=== PATIENT | female | born 1980 | race African-American/Black ===

== ENCOUNTER 2020-07-20 08:20 | Emergency (ER) | payer OTHER, SELFPAY ==
--- NOTE | ~2020-07-20 | US_ITS ---
EXAMINATION: US right upper quadrant DATE: 07/20/2020 09:49 INDICATION: Right-sided abdominal pain, nausea, vomiting and constipation. TECHNIQUE: Multiple grayscale and Doppler ultrasound images of the abdomen were obtained. COMPARISON: None FINDINGS: The pancreatic head and body are normal in appearance. The pancreatic tail is not visualized. Liver has normal contour, with a smooth surface. There is increased parenchymal echogenicity and coarsened echotexture consistent with diffuse hepatic steatosis. No liver lesion identified. No intrahepatic b iliary duct dilation suspected. Portal venous flow was seen in the hepatopetal, normal direction and has normal Doppler waveform. The gallbladder is normal in appearance. 1.5 cm ovoid shadowing gallston e at the fundus of the gallbladder. The common bile duct measures 4 mm, which is normal. Sonographic Mcclain sign was reported as negative by the fire apparatus engineer.Visualized portions of the right kidney demon strates normal contour and echogenicity with no hydronephrosis. Visualized proximal inferior vena cav a is normal. IMPRESSION: 1. Cholelithiasis. 2. Diffuse hepatic steatosis. Reviewed, dictated and finalized at location A. ER ERECTOR
[2020-07-20 08:30] VITALS: BP 143/105; PULSE 121; RESP 14; TEMP 36.8; O2SAT 99
--- NOTE | 2020-07-20 08:49 | ED.ABDPAIN ---
HPI - Abdominal Pain General Chief Complaint: Abdominal Pain Stated Complaint: constipation, vomiting Time Seen by Provider: 07/20/20 08:26 Source: patient Mode of arrival: ambulatory Limitations: no limitations History of Present Illness HPI narrative: 39-year-old female Generally healthy, takes no medications Comes in today for evaluation of an episode of abdominal pain that happened 2 days ago She says that after eating she had pain in her epigastrium and right upper quadrant associated with nausea and vomiting The pain resolved but the nausea has persisted and she has been reluctant to try to eat since then She also notes that she feels like she has become chronically constipated times weeks to months with no bowel movement for the last 2 days, and that the left side of her body feels swollen Her last menstrual period was 8 days ago elicited complaint: abdominal pain Onset (ago): day(s) Pain Consistency: intermittent and now resolved Location: epigastric and RUQ Related Data Home Medications Medication Instructions Recorded Confirmed bupropion HCl mg PO 07/20/20 bupropion HCl mg PO 07/20/20 07/20/20 ergocalciferol (vitamin D2) 07/20/20 levothyroxine 07/20/20 naproxen 07/20/20 phentermine mg 07/20/20 quetiapine 07/20/20 Allergies Allergy/AdvReac Type Severity Reaction Status Date / Time iodine Allergy Unknown Unknown Verified 07/20/20 09:19 1. SHRIMP 2. BANANAS Allergy Unknown Unknown Uncoded 07/20/20 09:19 NKDA Allergy Unknown Unknown Uncoded 07/20/20 09:19 Review of Systems Review of Systems: All systems reviewed & are unremarkable except as noted in HPI and below Constitutional: Constitutional: Denies chills, Reports fatigue, Denies fever(s), Denies headache(s) and Reports weakness Eyes: Eyes: Reports no additional eye complaints and Denies change in vision ENT: Denies headache(s), Denies epistaxis, Denies nasal congestion and Denies sore throat Cardiovascular: Cardiovascular: Denies chest pain, Denies leg edema, Denies palpitations and Denies dyspnea Respiratory: Respiratory: Denies cough, Denies dyspnea and Denies wheezing Gastrointestinal: Gastrointestinal: Reports abdominal pain, Reports bloating, Reports constipation, Denies diarrhea, Reports nausea and Reports vomiting Genitourinary: Genitourinary: Denies hematuria, Denies urinary frequency and Denies dysuria Musculoskeletal: Musculoskeletal: Denies deformity, Denies arthralgias, Denies joint swelling, Denies muscle weakness and Denies numbness Integumentary/Breasts: Skin/Breast: Denies rash and Denies wounds Neurologic: Denies headache(s), Denies focal weakness, Denies numbness and Denies weakness Psychiatric: Psychiatric: Reports no additional psychiatric complaints Endocrine: Endocrine: Denies fatigue and Denies palpitations Hematologic/Lymphatic: Hematologic/Lymphatic: Denies easy bleeding and Denies easy bruising Allergic/Immunologic: Allergic/Immunologic: Denies wheezing Exam Const: General: no acute distress, well developed and awake Nutritional Appearance: obese morbidly obese Orientation/consciousness: patient oriented x3 (alert) HENMT: Head: normocephalic and atraumatic Ears: external ears normal General nose exam: No nasal discharge present and no epistaxis Face and sinus: face symmetric Eyes: Conjunctivae: conjunctivae normal Sclera: sclerae normal EOM: EOMs intact bilaterally Neck: Neck: normal visual inspection, supple and no JVD Chest: Chest palpation & inspection: deferred Resp: Effort & Inspection: normal respiratory effort Auscultation: clear to auscultation bilaterally, no rales, no rhonchi, no wheezes and other (BS =) Cardio: Rate: regular rate Rhythm: regular rhythm Heart sounds: no gallops and no murmurs GI: Inspection: normal to inspection GI Palp: Yes Soft to palpation, No Tenderness to palpation present (GI), No Guarding due to palpation present (GI) and No Rebound tenderness prese
[2020-07-20 09:03] LABS: Basophils Absolute Auto 0.1 K/mm3 (0.0-0.1); Basophils Percent Auto 0.4 % (0.2-1.2); Eosinophils Absolute Auto 0.1 K/mm3 (0-0.3); Eosinophils Percent Auto 0.5 % (0-4.4); Hematocrit 38.5 % (37.0-47.0); Hemoglobin 12.8 g/dL (12.0-15.0); Immature Granulocyte Absolute 0.05 K/mm3 (0.00-0.031); Immature Granulocyte Percent A 0.4 % (0-0.5); Lymphocytes Absolute Auto 4.73 K/mm3 (0.9-3.2); Lymphocytes Percent Auto 33.7 % (18.3-44.2); Mean Corpuscular HGB Conc 33.2 g/dl (32-36); Mean Corpuscular Hemoglobin 28.6 pg (26-34); Mean Corpuscular Volume 85.9 fl (80-100); Mean Platelet Volume 10.1 fl (7.4-10.4); Monocytes Absolute Auto 0.9 K/mm3 (0.1-0.6); Monocytes Percent Auto 6.2 % (2.6-8.5); Neutrophils Absolute Auto 8.3 K/mm3 (1.3-6.7); Neutrophils Percent Auto 58.8 % (45.5-73.1); Platelet Count Result 361 k/mm3 (150-375); Red Blood Count 4.48 M/mm3 (4.2-5.4); Red Cell Distribution Width 14.5 % (11.5-14.5)
[2020-07-20 09:07] LABS: Add Urine Microscopic? YES; Appearance Urine Clear (Clear); Bilirubin Urine 1+ (Negative); Blood Urine 1+ (Negative); Color Urine Amber (Yellow); Glucose Urine UA Negative (Negative); Ketones Urine Trace mg/dL (Negative); Leukocyte Esterase Ur Negative LEU/UL (Negative); Mucus Urine Heavy /lpf; Nitrate Urine Negative (Negative); Protein Urine 3+ mg/dL (Negative); Specific Grav Ur 1.026 (1.001-1.035); Squamous Epithelial Cell Urine Many /hpf (Few); Transitional Epi Cells Urine Rare /hpf (None Seen)
[2020-07-20] MEDS: ONDANSETRON INJ 4 MG/2 ML VIAL IV PUSH (09:09)
[2020-07-20 09:14] LABS: Alanine Aminotransferase 29 U/L (4-35); Albumin Level 4.4 g/dL (3.5-5.1); Alkaline Phosphatase 103 U/L (38-126); Anion Gap 7 mmol/L (8-16); Aspartate Amino Transferase 29 U/L (14-36); Bilirubin,Total 0.6 mg/dL (0.2-1.3); Blood Urea Nitrogen 9 mg/dL (7-17); Calcium 9.6 mg/dL (8.4-10.2); Carbon Dioxide 33 mmol/L (22-30); Chloride 100 mmol/L (98-107); Estimated CRCL calculation 97 ml/min; Estimated Glomerular Filt Rate > 60; Glucose 103 mg/dL (65-105); Lipase 215 U/L (23-300); Potassium 3.1 mmol/L (3.4-5.0); Sodium 140 mmol/L (137-145)
[2020-07-20 11:26] VITALS: BP 103/67; PULSE 91; RESP 14; O2SAT 98
== END 2020-07-20 12:02 | disposition home or self-care (01) ==
PROVIDERS: Emergency Provider Emergency Medicine
DX: K80.50 Calculus of bile duct without cholangitis or cholecystitis without obstruction (principal); K85.10 Biliary acute pancreatitis without necrosis or infection
CPT/HCPCS: 36415; 76705; 80053; 81001; 81025; 83690; 85025; 87086; 87088; 96374; 99284; J2405

== ENCOUNTER 2020-08-05 10:04 | Outpatient (CLI) | payer OTHER, SELFPAY ==
[2020-08-05 10:35] LABS: Amylase 66 U/L (30-110)
== END 2020-08-05 10:05 | disposition home or self-care (01) ==
LOC: ANHSURGERY 10:07
PROVIDERS: Visit Provider Surgery
DX: Z01.812 Encounter for preprocedural laboratory examination (principal); K80.20 Calculus of gallbladder without cholecystitis without obstruction
CPT/HCPCS: 36415; 82150; 86850; 86900; 86901

== ENCOUNTER 2020-08-09 00:50 | Outpatient (CLI) | payer OTHER, SELFPAY ==
[2020-08-09 18:38] LABS: SARS-CoV-2 RNA PCR Negative
== END 2020-08-09 00:51 | disposition home or self-care (01) ==
LOC: ANHCOVIDDT 00:50
PROVIDERS: Visit Provider Surgery
DX: Z01.818 Encounter for other preprocedural examination (principal); Z20.828 Contact with and (suspected) exposure to other viral communicable diseases
CPT/HCPCS: C9803; U0003

== ENCOUNTER 2020-08-12 01:50 | Day surgery (SDC) | payer OTHER, SELFPAY ==
[2020-07-30 15:24] VITALS: BMI 49.1
[2020-08-12] VITALS (10 sets, daily range): BP systolic 119–170; BP diastolic 82–111; PULSE 78–89; RESP 12–20; TEMP 36.4; O2SAT 94–100; BMI 51.7
[2020-08-12] MEDS: KETOROLAC 15 MG/ML VIAL (*BKC) IV PUSH (08:56)
[2020-08-12] MEDS: ACETAMINOPHEN 500 MG TABLET 1000 MG PO (08:56)
--- NOTE | 2020-08-12 09:19 | WPDANESEPPF ---
Anes - Initial Pre Proc Eval Procedure: Operation Date: 08/12/20 10:30 Proposed Procedures p Laparoscopic Cholecystectomy Possible Open - Arben Ravi DO Date/Time: 08/12/20 09:19 Surgeon: Arben Ravi DO Pre Op Diagnosis: Symptomatic Cholelithiasis Patient Data Age: 40 Gender: F Height: 5 ft 4 in Weight: 136.6 kg Last Vital Signs Temp 36.4 C 08/12/20 09:00 Pulse 82 08/12/20 09:00 Resp 18 08/12/20 09:00 BP 121/82 08/12/20 09:00 Pulse Ox 100 08/12/20 09:00 Allergies Allergy/AdvReac Type Severity Reaction Status Date / Time NKDA Allergy Unknown Unknown Uncoded 08/12/20 08:22 Home Medications Medication Instructions Recorded Confirmed Type bupropion HCl 150 mg PO QAM 07/20/20 08/12/20 History levothyroxine 137 mcg QAM 07/20/20 08/12/20 History naproxen 500 mg PRN 07/20/20 08/12/20 History phentermine 15 mg BID 07/20/20 08/12/20 History quetiapine 25 mg HS 07/20/20 08/12/20 History famotidine [Pepcid] 40 mg PO HS 07/30/20 08/12/20 History hydrocodone-acetaminophen 1 tablet PO Q4H PRN 07/30/20 08/12/20 History meclizine 25 mg PO TID PRN 07/30/20 08/12/20 History ondansetron HCl [Zofran] 4 mg PO Q6H PRN 07/30/20 08/12/20 History Patient hx anesthesia problems: none Family hx anesthesia problems: none PMFSH Past Medical History Medical History Depression Hypothyroid Surgical History Surgical History No pertinent past surgical history Family History Family History Father Diabetes mellitus Sibling Cerebrovascular accident Social History Social History Smoking status: Never smoker Second hand tobacco smoke exposure: No Alcohol intake: never Substance use: never Substance use type: does not use Living arrangements: with family Spiritual care concerns: No Anes - Eval Final PreProcedure Day of Procedure 08/12/20 09:19 Patient weight: morbidly obese Heart: regular rate and rhythm Lungs: clear to auscultation Airway: Mallampati scale class II Neurological: alert and oriented Last oral intake: >/= 8 hours ASA classification: III Emergent: no Anesthetic plan: proceed Anesthesia type and monitoring: general ETT and standard monitoring Informed Consent: The patient's anesthetic plan and its attendant risks including gooden to face and airway due to nasal piercing and benefits were discussed with the patient. Questions were solicited and answers provided to the satisfaction of the patient.
[2020-08-12] MEDS: LACTATED RINGERS 1,000 ML 30 ML IV CONT ×2 (09:28→11:44)
--- NOTE | 2020-08-12 09:46 | SUR.PREOP ---
PT ABLE TO REMOVE NOSE RING
--- NOTE | 2020-08-12 10:12 | WPDHPUPDATE1 ---
History and Physical Update Update Date/Time: 08/12/20 10:12 History and Physical has been reviewed, including an updated exam of the patient. There are NO changes in the patient's condition. Risks, benefits, and alternatives have been discussed and questions answered. Patient agrees to proceed with procedure.
[2020-08-12] MEDS: ceFAZolin 3 GM/D5W 100 ML 100 ML IVPB (10:32)
[2020-08-12] MEDS: BUPIVACAINE HCL 0.5% PF 30 ML VIAL INFILTRATE (11:02)
--- NOTE | 2020-08-12 11:36 | PM.PROC ---
Procedure Note - Detailed Date of procedure: 08/12/20 Pre-op diagnosis: Symptomatic Cholelithiasis Post-op diagnosis: same Procedure performed: Laparoscopic Cholecystectomy Description of procedure: Procedure as well as risks, benefits, and alternatives were discussed with patient. Written consent was obtained and placed in chart prior to procedure. The patient was brought back to surgical suite. Patient was placed in supine position on operating table. Time-out was done to confirm patient and procedure. Patient was then intubated by the anesthesia department. Abdomen was prepped and draped in sterile fashion using chlorhexidine prep. 0.5% bupivacaine with epinephrine was infiltrated at each site of incision. A 5 millimeter incision was made near the umbilicus, and a 5 millimeter Optiview trocar was advanced through the abdominal layers under direct visualization. Once inside the abdominal cavity, carbon dioxide was insufflated to create a pneumoperitoneum. The camera was inserted and the abdomen was inspected. No immediate abnormalities were identified. The patient was placed in reverse Trendelenburg position and rotated slightly to the left. An 11 millimeter incision was made in the subxiphoid region, and an 11 millimeter trocar was inserted under direct visualization. Two 5 millimeter incisions were made in the right upper quadrant, and two 5 millimeter trocars were inserted under direct visualization. The gallbladder was identified and grasped at the fundus and retracted superiorly. It was then grasped at the infundibulum retracted laterally. Careful dissection around the neck of the gallbladder was performed using blunt dissection with a [place] grasper and hook electrocautery. The cystic duct was identified, and a window was created behind it. The cystic artery was also identified and a window was created behind it. The critical view of safety was identified, visualizing the cystic duct running directly into the neck of the gallbladder, and the cystic artery running directly into the wall of the gallbladder. A 5 millimeter clip cattle sorter was then used to place 2 clips proximally and 1 clip distally on both the cystic duct and cystic artery. They were then both transected using endoscopic scissors. Once safely away from the vy hepatitis, the gallbladder was dissected free from the liver bed using hook electrocautery. Hemostasis was achieved along the way. The gallbladder was removed completely and then removed through the subxiphoid port. The liver bed was then inspected. Hemostasis appeared adequate, and our clips appeared secure. The area was gently irrigated with sterile saline. No other abnormalities were seen. The patient was flattened out in bed, and 1 final inspection was made around the abdominal cavity. The subxiphoid port was removed, and a James Nicolasa cone was used to approximate the fascia with an 0-Vicryl simple interrupted suture. The remaining ports were then removed under direct visualization, the camera was removed, and the pneumoperitoneum was released. The skin of the incisions was approximated using 4-0 Monocryl subcuticular sutures. Exofin glue was applied on top. The patient was then awakened from anesthesia, extubated, and transferred to recovery. Anesthesia: GETA and local (0.5% bupivicaine with epi) Surgeon: Arben Ravi DO Estimated blood loss (mL): 5 Drains: No Packing: No Pathology: yes Complications: No immediate complications Condition: stable (Patient tolerated procedure well, and is currently resting comfortably in recovery.) Disposition: same day Findings: Obdulia is a 39 y/o female who presents with gallstones. She presented to [facility] on 07/20/20 with RUQ and epigastric abdominal pain. She states she ate onion rings the night prior to going to the ER. U/S was performed and showed cholelithiasis and diffuse hepatic steatosis. CBD measured 4mm. She was seen in the office after recovering from the
[2020-08-12] MEDS: ONDANSETRON INJ 4 MG/2 ML VIAL IV PUSH (12:01)
[2020-08-12] MEDS: fentaNYL CITRATE INJ (*CRX) 100 MCG/2 ML VIAL 25 MCG IV PUSH ×10 (12:06→14:08)
[2020-08-12] MEDS: oxyCODONE HCL (*CRX) 5 MG TAB IR PO (13:03)
== END 2020-08-12 14:56 | disposition home or self-care (01) ==
PROVIDERS: Visit Provider Surgery
PROC: 0FT44ZZ Resection of Gallbladder, Percutaneous Endoscopic Approach (ICD-10-PCS; CPT 47562; principal; 2020-08-12 10:30)
DX: K80.10 Calculus of gallbladder with chronic cholecystitis without obstruction (principal); E03.9 Hypothyroidism, unspecified; F32.9 Major depressive disorder, single episode, unspecified; E66.01 Morbid (severe) obesity due to excess calories; Z68.43 Body mass index [BMI] 50.0-59.9, adult
CPT/HCPCS: 47562; 88304; A9270; J0330; J0690; J1100; J1885; J2250; J2405; J2704; J2710; J3010; J7030; J7120

== ENCOUNTER 2020-08-13 03:20 | Emergency (ER) | payer OTHER, SELFPAY ==
--- NOTE | ~2020-08-13 | CT_ITS ---
EXAMINATION: CT abdomen pelvis w con DATE: 08/13/2020 04:19 INDICATION: Abdomen pain. Recent cholecystectomy. TECHNIQUE: Computed tomography (CT) of the abdomen and pelvis was performed with 100 cc Omnipaque 350 intravenous contrast. The dose-length product was 1521.07 mGy-cm. Automated exposure control and ite rative reconstruction technique were employed. COMPARISON: None. FINDINGS: Bibasilar atelectasis. Heart size normal. No significant pleural or pericardial effusion. T here are surgical changes in the anterior abdominal wall consistent with recent laparoscopic surgery. Trace free air in the abdomen consistent with recent surgery. Fatty infiltration of the liver. Status post cholecystectomy. No abnormal fluid collections in the laparoscopic bed. The spleen, pancreas, a drenal glands and kidneys are unremarkable. Nonobstructive bowel gas pattern. Normal appendix. No acu te osseous abnormality. Nonobstructive bowel gas pattern. There are nonobstructing bilateral renal st ones. IMPRESSION: 1. No acute abdominal abnormality. 2: Postoperative changes, consistent with recent cholecystectomy. 3: Nonobstructing bilateral nephrolithiasis. 4: Hepatic steatosis. Reviewed, dictated and finalized at location A. CIATE SOFTWARE DEVELOPMENT ENGINEER
[2020-08-13 03:23] VITALS: BP 156/107; PULSE 79; RESP 14; TEMP 36.9; O2SAT 100
--- NOTE | 2020-08-13 03:51 | ED.ABDPAIN ---
HPI - Abdominal Pain General Chief Complaint: Abdominal Pain Stated Complaint: N/V Time Seen by Provider: 08/13/20 03:29 Source: patient Mode of arrival: ambulatory Limitations: no limitations History of Present Illness HPI narrative: Patient is a 40-year-old female complaining of nausea and vomiting, I cannot keep anything down and I cannot take my pain medication that is why I am still having pain , accompanied by right upper quadrant pain since yesterday. Patient states that she had a gallbladder surgery done yesterday by Dr. Sarmiento. Patient denies any fever. Patient states her pain is not worse since her gallbladder surgery, is just that she cannot take her pain medication due to the nausea and vomiting. Related Data Home Medications Medication Instructions Recorded Confirmed bupropion HCl 150 mg PO QAM 07/20/20 08/12/20 levothyroxine 137 mcg QAM 07/20/20 08/12/20 naproxen 500 mg PRN 07/20/20 08/12/20 phentermine 15 mg BID 07/20/20 08/12/20 quetiapine 25 mg HS 07/20/20 08/12/20 famotidine [Pepcid] 40 mg PO HS 07/30/20 08/12/20 hydrocodone-acetaminophen 1 tablet PO Q4H PRN 07/30/20 08/12/20 meclizine 25 mg PO TID PRN 07/30/20 08/12/20 ondansetron HCl [Zofran] 4 mg PO Q6H PRN 07/30/20 08/12/20 Allergies Allergy/AdvReac Type Severity Reaction Status Date / Time NKDA Allergy Unknown Unknown Uncoded 08/12/20 08:22 Review of Systems Review of Systems: All systems reviewed & are unremarkable except as noted in HPI and below Constitutional: Constitutional: Denies body ache(s), Denies chills, Denies excessive sweating, Denies fatigue, Denies fever(s), Denies headache(s), Denies lethargy, Denies malaise, Denies weakness and Denies weight loss Eyes: Eyes: Denies blurry vision, Denies change in vision and Denies loss of vision ENT: Denies dizziness, Denies ear discharge, Denies headache(s), Denies lip swelling, Denies epistaxis, Denies nasal congestion, Denies neck pain, Denies throat swelling and Denies tongue swelling Cardiovascular: Cardiovascular: Denies chest pain, Denies chest pain at rest, Denies chest pain with activity, Denies diaphoresis, Denies rapid heart rate, Denies edema, Denies irregular heart rhythm, Denies lightheadedness, Denies palpitations, Denies dyspnea and Denies dyspnea on exertion Respiratory: Respiratory: Denies chest congestion, Denies cough, Denies hemoptysis, Denies dyspnea and Denies dyspnea on exertion Gastrointestinal: Gastrointestinal: Denies melena, Denies hematochezia, Denies diarrhea and Denies hematemesis Musculoskeletal: Musculoskeletal: Denies abnormal gait, Denies deformity, Denies joint swelling, Denies limited range of motion, Denies neck pain and Denies numbness Neurologic: Denies Abnormal speech present, Denies abnormal gait, Denies confusion, Denies dizziness, Denies headache(s), Denies focal weakness, Denies loss of vision, Denies numbness, Denies Other visual disturbances, Denies Sensory deficit (Neuro) and Denies weakness Psychiatric: Psychiatric: Denies confusion, Denies depression, Denies auditory hallucinations, Denies homicidal ideation and Denies suicidal ideation Endocrine: Endocrine: Denies cold intolerance, Denies excessive sweating, Denies fatigue, Denies heat intolerance and Denies palpitations Hematologic/Lymphatic: Hematologic/Lymphatic: Denies easy bleeding and Denies easy bruising Allergic/Immunologic: Allergic/Immunologic: Denies lip swelling, Denies throat swelling and Denies tongue swelling PMFSH Past Medical History Medical History Depression Hypothyroid Surgical History Surgical History No pertinent past surgical history Family History Family History Father Diabetes mellitus Sibling Cerebrovascular accident Social History Social History
[2020-08-13] MEDS: SODIUM CHLORIDE 0.9% IV 1,000 ML 999 ML IV CONT (03:52)
[2020-08-13 03:53] LABS: Basophils Percent Auto 0.1 % (0.2-1.2); Hemoglobin 12.2 g/dL (12.0-15.0); Immature Granulocyte Absolute 0.12 K/mm3 (0.00-0.031); Immature Granulocyte Percent A 0.7 % (0-0.5); Lymphocytes Absolute Auto 1.16 K/mm3 (0.9-3.2); Lymphocytes Percent Auto 6.3 % (18.3-44.2); Mean Corpuscular Hemoglobin 28.1 pg (26-34); Mean Corpuscular Volume 85.3 fl (80-100); Mean Platelet Volume 9.8 fl (7.4-10.4); Monocytes Absolute Auto 0.7 K/mm3 (0.1-0.6); Monocytes Percent Auto 3.7 % (2.6-8.5); Neutrophils Absolute Auto 16.4 K/mm3 (1.3-6.7); Neutrophils Percent Auto 89.2 % (45.5-73.1); Platelet Count Result 374 k/mm3 (150-375); Red Blood Count 4.34 M/mm3 (4.2-5.4); Red Cell Distribution Width 14.3 % (11.5-14.5); White Blood Count 18.4 K/mm3 (4.5-10.0)
[2020-08-13] MEDS: PROMETHAZINE HCL 25 MG/ML AMPUL 12.5 MG IV PUSH (03:53)
[2020-08-13] MEDS: SODIUM CHLORIDE 0.9% IV 50 ML 300 ML (03:54)
[2020-08-13 04:06] LABS: Alanine Aminotransferase 27 U/L (4-35); Albumin Level 4.4 g/dL (3.5-5.1); Alkaline Phosphatase 97 U/L (38-126); Anion Gap 9 mmol/L (8-16); Aspartate Amino Transferase 34 U/L (14-36); Bilirubin,Total 0.5 mg/dL (0.2-1.3); Blood Urea Nitrogen 8 mg/dL (7-17); Calcium 9.5 mg/dL (8.4-10.2); Carbon Dioxide 27 mmol/L (22-30); Chloride 97 mmol/L (98-107); Estimated CRCL calculation 145 ml/min; Estimated Glomerular Filt Rate > 60; Glucose 127 mg/dL (65-105); Lipase 69 U/L (23-300); Potassium 3.7 mmol/L (3.4-5.0); Sodium 133 mmol/L (137-145)
[2020-08-13] MEDS: HYDROmorphone HCL INJ (*CRX) 1 MG/ML SYR 0.5 MG IV PUSH (04:29)
[2020-08-13 04:31] VITALS: BP 161/96; PULSE 97; RESP 20; O2SAT 100
[2020-08-13 05:14] VITALS: BP 178/100; PULSE 90; RESP 18; O2SAT 100
== END 2020-08-13 05:28 | disposition home or self-care (01) ==
PROVIDERS: Emergency Provider Emergency Medicine; Referring Provider Internal Medicine
DX: R11.2 Nausea with vomiting, unspecified (principal); R10.11 Right upper quadrant pain; F32.9 Major depressive disorder, single episode, unspecified; E03.9 Hypothyroidism, unspecified
CPT/HCPCS: 36415; 74177; 80053; 83690; 85025; 96361; 96374; 96375; 99284; J1170; J2550; J7030; Q9967

== ENCOUNTER 2020-08-22 14:43 | Outpatient (CLI) | payer OTHER, SELFPAY ==
--- NOTE | ~2020-08-22 | MM_ITS ---
EXAMINATION: MM screening david BI w radha HISTORY: Screening TECHNIQUE: Craniocaudal and mediolateral oblique 3-D tomosynthesis images were obtained and synthetic 2-D images were generated. CAD analysis was submitted and interpreted. COMPARISON: No prior mammogram is available for comparison at this institution. BREAST PARENCHYMAL COMPOSITION: There are scattered areas of fibroglandular density. FINDINGS: There is a mass in the subareolar location of the right breast, slightly lateral, measuring up to 1.7 cm. There is an 8 mm mass in the upper outer quadrant of the left breast, middle third. Th ere are no suspicious calcifications or architectural distortion. IMPRESSION: 1. Bilateral breast masses. 2. Additional mammographic views and possible breast ultrasound are recommended. BI-RADS Category 0: Incomplete: Needs additional imaging evaluation. Reviewed, dictated and finalized at location A. EL CLERK IMPRESSION: 1. Bilateral breast masses. 2. Additional mammographic views and possible breast ultrasound are recommended . BI-RADS Category 0: Incomplete: Needs additional imaging evaluation.
== END 2020-08-22 14:44 | disposition home or self-care (01) ==
PROVIDERS: Visit Provider Obstetrics & Gynecology
DX: Z12.31 Encounter for screening mammogram for malignant neoplasm of breast (principal); R92.8 Other abnormal and inconclusive findings on diagnostic imaging of breast
CPT/HCPCS: 77063; 77067

== ENCOUNTER 2020-09-19 14:27 | Outpatient (CLI) | payer OTHER, SELFPAY ==
--- NOTE | ~2020-09-19 | MMUS_ITS ---
EXAMINATION: MM diagnostic mammo BI, US breast BI limited HISTORY: Bilateral breast masses reported on 08/22/2020 bilateral screening mammogram TECHNIQUE: Additional 3-D tomosynthesis images of both breasts were performed and synthetic 2-D image s were generated. CAD analysis was submitted and interpreted. High resolution right subareolar and le ft upper outer quadrant breast ultrasound was performed. COMPARISON: 08/22/2020 bilateral digital screening mammogram FINDINGS: MAMMOGRAPHIC FINDINGS: There is an asymmetric circumscribed approximately 7.2 x 16 mm opacity in the superolateral subareola r area of the right breast. Ultrasound correlation was obtained. There is a low-density approximately 4 x 7 mm circumscribed opacity in the mid depth in the upper out er quadrant of the left breast. Ultrasound correlation was obtained. ULTRASOUND: Right breast subareolar area: There is a bilobed peanut-shaped mass with posterior shadowing in the right subareolar area, measurin g approximately 16.5 x 7.3 x 11.1 mm dimension. Ultrasound-guided biopsy is recommended. Left upper outer quadrant: 2:00 7 cm from nipple: There is a mildly irregular 4.4 x 4.8 x 3.9 mm hypoechoic lesion without inter nal vascularity but with some posterior shadowing. Ultrasound-guided aspiration attempt is recommende d, with immediate subsequent ultrasound-guided biopsy if unsuccessful.. IMPRESSION: 1. Shadowing right subareolar 7.3 x 16.5 x 11.1 mm breast mass; ultrasound-guided biopsy is recommend ed 2. Mildly irregular hypoechoic up to 4.8 mm mass at left breast 2:00 7 cm from nipple; guided aspirat ion attempt is recommended, with mediastinal sweats ultrasound-guided biopsy if aspiration is unsucce ssful BI-RADS category 4, suspicious findings. On 09/19/[id number] James telephoned the mammography and ultrasound reports and ultrasound g uided intervention recommendations to Dr. Cruz's Lawyer Criminal Camille. Reviewed, dictated and finalized at location A. ALLER HELPER IMPRESSION: 1. Shadowing right subareolar 7.3 x 16.5 x 11.1 mm breast mass; ultrasound-guid ed biopsy is recommended 2. Mildly irregular hypoechoic up to 4.8 mm mass at left breast 2:00 7 cm from nipple; guided aspiration attempt is recommended, with mediastinal sweats ultra sound-guided biopsy if aspiration is unsuccessful BI-RADS category 4, suspicious findings. On 09/19/[id number] James telephoned the mammography and ultrasound re ports and ultrasound guided intervention recommendations to Dr. Cruz's Medic al Thermal Intelligence Analyst Camille. IMPRESSION: 1. Shadowing right subareolar 7.3 x 16.5 x 11.1 mm breast mass; ultrasound-guid ed biopsy is recommended 2. Mildly irregular hypoechoic up to 4.8 mm mass at left breast 2:00 7 cm from nipple; guided aspiration attempt is recommended, with mediastinal sweats ultra sound-guided biopsy if aspiration is unsuccessful BI-RADS category 4, suspicious findings. On 09/19/[id number] James telephoned the mammography and ultrasound re ports and ultrasound guided intervention recommendations to Dr. Cruz's Medic al Thermal Intelligence Analyst Camille.
== END 2020-09-19 14:28 | disposition home or self-care (01) ==
LOC: ANHIMG 14:29
PROVIDERS: Visit Provider Obstetrics & Gynecology Gynecology
DX: R92.8 Other abnormal and inconclusive findings on diagnostic imaging of breast (principal)
CPT/HCPCS: 76642; 77066

== ENCOUNTER 2020-10-17 09:53 | Outpatient (CLI) | payer OTHER, SELFPAY ==
--- NOTE | ~2020-10-17 | US_ITS ---
EXAMINATION: US GUIDED NEEDLE BIOPSY DATE: 10/17/2020 12:59 SUPERVISOR STONE INDICATION: Left breast 2:00 7 cm from nipple 4.8 mm hypoechoic lesion with posterior shadowing noted on 09/19/2020 breast ultrasound examination TECHNIQUE AND FINDINGS: The risks and potential benefits of the procedure were discussed with the patient, and written inform ed consent was obtained. Timeout procedure was performed. After sterile preparation of the left breas t, 1% lidocaine was utilized for local anesthesia. A 14G spring-loaded biopsy gun needle was advanced to the edge of the region of interest from a later al approach utilizing sonographic guidance. A total of three tissue core samples were obtained throu gh the lesion. An Inrad tissue marker clip was then placed at the biopsy site. Hemostasis was achiev ed. A sterile bandage was applied. The patient tolerated procedure well and there was no evidence of immediate complication. The patien t was given verbal instructions prior to departing from the department. A two view mammogram was perf ormed to document tissue marker clip placement. The tissue samples were submitted to surgical patholo gy for histologic analysis. IMPRESSION: 1. Successful ultrasound guided biopsy of left 2:00 breast mass with biopsy marker placement. Please refer to pathology report for histologic analysis. Reviewed, dictated and finalized at Location A. Reviewed, dictated and finalized at location A. RVISOR STONE IMPRESSION: 1. Successful ultrasound guided biopsy of left 2:00 breast mass with biopsy ma rker placement. Please refer to pathology report for histologic analysis.
--- NOTE | ~2020-10-17 | US_ITS ---
CORRECTED REPORT [place] [facility] [place] EXAMINATION: US breast bx add lesion RT DATE: 10/17/2020 13:00 KILN STOKER INDICATION: Up to 16.5 mm posteriorly shadowing mass in the right subareolar area reported on 09/19/2020 breast ultrasound examination TECHNIQUE AND FINDINGS: The risks and potential benefits of the procedure were discussed with the patient, and written informed consent was obtained. Timeout procedure was performed. After sterile preparation of the right breast, 1% lidocaine was utilized for local anesthesia. A 14G spring-loaded biopsy gun needle was advanced to the edge of the region of interest from a lateral approach utilizing sonographic guidance. A total of three tissue core samples were obtained through the lesion. An Inrad tissue marker clip was then placed at the biopsy site. Hemostasis was achieved. A sterile bandage was applied. The patient tolerated procedure well and there was no evidence of immediate complication. The patient was given verbal instructions prior to departing from the department. A two view mammogram was performed to document tissue marker clip placement. The tissue samples were submitted to surgical pathology for histologic analysis. IMPRESSION: 1. Successful ultrasound guided biopsy of right subareolar breast mass with biopsy marker placement. Please refer to pathology report for histologic analysis. Reviewed, dictated and finalized at [facility]. Reviewed, dictated and finalized at location A. STOKER MTDChuyita IMPRESSION: 1. Successful ultrasound guided biopsy of right subareolar breast mass with bi opsy marker placement. Please refer to pathology report for histologic analysis .
--- NOTE | ~2020-10-17 | MM_ITS ---
MM post biopsy invasive BI DATE: 10/17/2020 11:12 INDICATION: Post ultrasound-guided biopsy mammogram; left 2:00 hypoechoic mass and right subareolar m ass ultrasound-guided biopsy TECHNIQUE: Digital ML and cc views of each breast COMPARISON: 10/17/2020 bilateral ultrasound-guided breast biopsy bilateral diagnostic mammography 08/22/2020 bilateral digital screening mammography FINDINGS: A biopsy marker is noted at the posterior margin of a right inferolateral subareolar mass. A biopsy marker is noted within a small opacity in the upper outer left breast; the density is dimini shed in size since following several biopsy passes through the mass. IMPRESSION: Status post ultrasound-guided biopsy of right subareolar and left 2:00 masses Reviewed, dictated and finalized at [facility]. Reviewed, dictated and finalized at location A. WAREHOUSE SPECIALIST IMPRESSION: Status post ultrasound-guided biopsy of right subareolar and left 2 :00 masses
== END 2020-10-17 09:54 | disposition home or self-care (01) ==
PROVIDERS: PCP Internal Medicine Infectious Disease; Visit Provider Surgery
DX: R92.8 Other abnormal and inconclusive findings on diagnostic imaging of breast (principal)
CPT/HCPCS: 19083; 19084; 88305; A4648

== ENCOUNTER 2022-01-01 15:10 | Inpatient (IN) | payer OTHER, SELFPAY ==
--- NOTE | 2021-12-15 14:57 | PC.NURSE ---
Verified with OR schedule and patient--C/S on 01/02/22 at 0730 Patient given requisition for lab draw on 01/01/22
[2022-01-01] VITALS (40 sets, daily range): BP systolic 71–130; BP diastolic 25–91; PULSE 61–112; RESP 18; TEMP 36.2–37.2; O2SAT 80–100; BMI 53.8
--- NOTE | 2022-01-01 15:39 | LDADM ---
This patient, Obdulia Sanders, was admitted to Labor/Delivery/Recovery 120 on 01/01/22 at 15:10. Plans for labor, pain management and were discussed with patient. Patient/family oriented to hospital policies and general routines including ID bracelet, bed and alarms, visiting hours, pain management, procedures, bathroom and other care routines, personal items, smoking policy, room service/diet and guest tray routines, security routines, and visiting hours. Patient/Family are encouraged to report perceived risks to care and to ask questions if they do not understand what they are told or what they should do. See OBIX for further documentation.
[2022-01-01] MEDS: LACTATED RINGERS 1,000 ML 125 ML IV CONT ×2 (15:45→18:24)
[2022-01-01 15:50] LABS: Basophils Absolute Auto 0.1 K/mm3 (0.0-0.1); Basophils Percent Auto 0.4 % (0.2-1.2); Eosinophils Absolute Auto 0.2 K/mm3 (0-0.3); Eosinophils Percent Auto 1.4 % (0-4.4); Hemoglobin 10.5 g/dL (12.0-15.0); Immature Granulocyte Absolute 0.09 K/mm3 (0.00-0.031); Immature Granulocyte Percent A 0.7 % (0-0.5); Lymphocytes Absolute Auto 3.08 K/mm3 (0.9-3.2); Lymphocytes Percent Auto 23.5 % (18.3-44.2); Mean Corpuscular HGB Conc 32.8 g/dl (32-36); Mean Corpuscular Volume 91.4 fl (80-100); Mean Platelet Volume 10.1 fl (7.4-10.4); Monocytes Absolute Auto 0.7 K/mm3 (0.1-0.6); Monocytes Percent Auto 5.6 % (2.6-8.5); Neutrophils Percent Auto 68.4 % (45.5-73.1); Platelet Count Result 277 k/mm3 (150-375); Red Cell Distribution Width 13.8 % (11.5-14.5); White Blood Count 13.1 K/mm3 (4.5-10.0)
[2022-01-01 16:06] LABS: Amphetamine Screen Urine Negative (Negative); Barbiturate Screen Urine Negative (Negative); Benzodiazepines Screen Urine Negative (Negative); Cannabinoid Screen Urine Positive (Negative); Cocaine Screen Urine Negative (Negative); Methadone Screen Urine Negative (Negative); Opiate Screen Urine Negative (Negative); Phencyclidine Screen Urine Negative (Negative)
--- NOTE | 2022-01-01 16:43 | WPDANESEPP ---
Anes - Eval Pre Procedure Procedure: Operation Date: 01/01/22 17:00 Proposed Procedures p Repeat Section - Mary Cruz MD Date/Time: 01/01/22 16:43 Surgeon: otto Pre Op Diagnosis: Repeat ,Pre-admit Patient Data Age: 41 Gender: F Height: 1.63 m Weight: 142.2 kg Last Vital Signs Temp 36.2 C L 01/01/22 15:46 Pulse 86 01/01/22 15:46 BP 118/70 01/01/22 15:46 O2 Del Method Room Air 01/01/22 15:36 Allergies Allergy/AdvReac Type Severity Reaction Status Date / Time No Known Allergies Allergy Verified 01/01/22 15:18 Home Medications Medication Instructions Recorded Confirmed Type prenat.vits,nori,atu-[id number] 1 tablet PO DAILY 12/15/21 01/01/22 History Laboratory Tests 01/01/22 01/01/22 01/01/22 15:42 15:42 15:42 WBC 13.1 K/mm3 H K/mm3 (4.5-10.0) RBC 3.50 M/mm3 L M/mm3 (4.2-5.4) Hgb 10.5 g/dL L g/dL (12.0-15.0) Hct 32.0 % L % (37.0-47.0) MCV 91.4 fl fl (80-100) MCH 30.0 pg pg (26-34) MCHC 32.8 g/dl g/dl (32-36) RDW 13.8 % % (11.5-14.5) Plt Count 277 k/mm3 k/mm3 (150-375) MPV 10.1 fl fl (7.4-10.4) Immature Gran % (Auto) 0.7 % H % (0-0.5) Neut % (Auto) 68.4 % % (45.5-73.1) Lymph % (Auto) 23.5 % % (18.3-44.2) [place] % (Auto) 5.6 % % (2.6-8.5) Eos % (Auto) 1.4 % % (0-4.4) Baso % (Auto) 0.4 % % (0.2-1.2) Lymph # (Auto) 3.08 K/mm3 K/mm3 (0.9-3.2) [place] # (Auto) 0.7 K/mm3 H K/mm3 (0.1-0.6) Eos # (Auto) 0.2 K/mm3 K/mm3 (0-0.3) Baso # (Auto) 0.1 K/mm3 K/mm3 (0.0-0.1) Abs Immat Gran (auto) 0.09 K/mm3 H K/mm3 (0.00-0.031) Absolute Neuts (auto) 9.0 K/mm3 H K/mm3 (1.3-6.7) Absolute Nucleated RBC 0.0 K/mm3 K/mm3 (0.0-0.012) Nucleated RBC % 0.0 % % (0.0-0.2) Urine Opiates Screen Negative (Negative) Urine Methadone Screen Negative (Negative) Ur Barbiturates Screen Negative (Negative) Ur Phencyclidine Scrn Negative (Negative) Ur Amphetamine Screen Negative (Negative) U Benzodiazepines Scrn Negative (Negative) Urine Cocaine Screen Negative (Negative) U Cannabinoids Screen Positive A (Negative) RPR Pending Blood Type Antibody Screen 01/01/22 15:42 WBC RBC Hgb Hct MCV MCH MCHC RDW Plt Count MPV Immature Gran % (Auto) Neut % (Auto) Lymph % (Auto) [place] % (Auto) Eos % (Auto) Baso % (Auto) Lymph # (Auto) [place] # (Auto) Eos # (Auto) Baso # (Auto) Abs Immat Gran (auto) Absolute Neuts (auto) Absolute Nucleated RBC Nucleated RBC % Urine Opiates Screen Urine Methadone Screen Ur Barbiturates Screen Ur Phencyclidine Scrn Ur Amphetamine Screen U Benzodiazepines Scrn Urine Cocaine Screen U Cannabinoids Screen RPR Blood Type B Positive Antibody Screen Negative Patient hx anesthesia problems: none Family hx anesthesia problems: none Results Review: All pre-operative results and documents have been reviewed as part of the pre-operative evaluation. [facility] Past Medical History Medical History Depression Hypothyroid Vitamin B 12 deficiency Surgical History Surgical History Hx laparoscopic cholecystectomy 08/12/20 Family History Family History Sibling Cerebrovascular accident Social History Social History (Reviewed 09/27/20 @ 11:42 by Arben Ravi, DO
--- NOTE | 2022-01-01 16:48 | P.PNAN_ITS ---
Anes - Eval Final PreProcedure Day of Procedure 01/01/22 16:48 Patient weight: morbidly obese Heart: regular rate and rhythm Lungs: clear to auscultation and normal air movement Airway: Mallampati scale class II Neurological: alert and oriented Last oral intake: >/= 8 hours ASA classification: III Emergent: no Anesthetic plan: proceed Anesthesia type and monitoring: regional spinal Results Review: All pre-operative results and documents have been reviewed as part of the pre- operative evaluation. Informed Consent: The patient's anesthetic plan and its attendant risks and benefits were discusse d with the patient/family/POA. Questions were solicited and answers provided to the satisfaction of the patient/family/POA.
[2022-01-01] MEDS: ceFAZolin 3 GM/D5W 100 ML 100 ML IVPB (16:50)
--- NOTE | 2022-01-01 16:50 | PM.IMHP ---
H&P: HPI History of Present Illness Date/Time: 01/01/22 16:50 Chief Complaint: Intrauterine at 39 weeks with ruptured membranes since 12/30. Patient thought she was leaking urine. Ultrasound done on 12/29 had an JOHANNA of to 13.8 and today was repeated and was 6. On questioning the patient states she has been leaking since 12/30. to this point has been otherwise uncomplicated. Patient has been followed by ultrasound due to enlarged fibroid uterus to follow growth. growth has been normal at the 30th to 40th percentile. labs B positive, rubella immune, RPR negative, hepatitis-B surface antigen negative, HIV negative, group B strep negative. Due to advanced maternal age, level 2 ultrasound for anatomy as well as noninvasive testing were performed and normal. Review of Systems Review of Systems: leaking vaginal fluid normal movement pelvic pressure otherwise negative [facility] Past Medical History Medical History (Updated 01/01/22 @ 16:57 by Mary Cruz MD) Depression Hypothyroid Interstitial cystitis (normal spontaneous vaginal delivery) shoulder dystocia 8lb 13 Vitamin B 12 deficiency Surgical History Surgical History (Updated 01/01/22 @ 16:57 by Mary Cruz MD) History of section, low transverse bradycardia 7lb 10oz Hx laparoscopic cholecystectomy 08/12/20 Family History Family History Sibling Cerebrovascular accident Social History Social History Smoking status: Never smoker Second hand tobacco smoke exposure: No Alcohol intake: never Substance use: never Substance use type: does not use Spiritual care concerns: No Meds Home Medications and Allergies Home Medications Medication Instructions Recorded Confirmed Type prenat.vits,nori,mtn-klha-mnilz 1 tablet PO DAILY 12/15/21 01/01/22 History Allergies Allergy/AdvReac Type Severity Reaction Status Date / Time No Known Allergies Allergy Verified 01/01/22 15:18 Vital Signs Vital Signs - 24 hr 01/01/22 15:36 01/01/22 15:46 01/01/22 15:36 Temperature 97.2 F L Pulse Rate 100 Blood Pressure 130/91 H Oxygen Delivery Room Air 01/01/22 15:46 Temperature Pulse Rate 86 Blood Pressure 118/70 Oxygen Delivery Exam Const: General: healthy appearing and alert Orientation/consciousness: patient oriented x3 GI: GI Palp: Yes Soft to palpation and No Tenderness to palpation present (GI) : External Female Exam: normal external appearance Speculum Exam - Vagina: normal appearance of the vagina and normal vaginal discharge Speculum Exam - Cervix: normal appearance of the cervix Bimanual exam- vagina & uterus: consistency normal and enlarged ( fundal height 47cm) Bimanual Exam- Adnexa, other: normal adnexae and No adnexal tenderness Neuro: General: patient oriented x3 H&P: Results Labs Labs: Short CBC 01/01/22 Range/Units 15:42 WBC 13.1 H (4.5-10.0) K/mm3 Hgb 10.5 L (12.0-15.0) g/dL Hct 32.0 L (37.0-47.0) % Plt Count 277 (150-375) k/mm3 Assessment and Plan Assessment and plan (1) 39 weeks gestation of : Code(s): Z3A.39 - 39 weeks gestation of Status: Acute (2) History of section, low transverse: Code(s): Z98.891 - History of uterine scar from previous surgery Status: Acute (3) SROM (spontaneous rupture of membranes): Status: Acute Assessment and Plan: plan to proceed with repeat low transverse section
--- NOTE | 2022-01-01 17:53 | P.OP_ITS ---
Procedure Note - Detailed Date of Procedure 01/01/22 Pre-op Diagnosis Repeat Intrauterine at 39 weeks Prolonged rupture of membranes morbid obesity Advanced maternal age Post-op Diagnosis Same Procedure Performed Repeat low transverse section Surgeon Mary Cruz MD Anesthesia Epidural Findings Male weighing 7lb 9oz with 8 and 9 Apgars. Nuchal cord x1 normal- appearing tubes ovaries and uterus. Description of Procedure The patient was taken to the operating room and placed under anesthesia in the dorsal supine position with a leftward tilt. The traxi retractor was placed. The patient was prepped and draped in usual sterile fashion. Once anesthesia was deemed adequate a Pfannenstiel skin incision was made through the prior incision with a scalpel. The incision was extended laterally using Carlton scissors. Ochsner was used to tent the fascia which was then dissected off using sharp dissection. The peritoneum was entered bluntly high in the incision. The incision is extended with blunt traction. The Bassem O retractor was placed. The vesicouterine peritoneum was tented and entered with Metzenbaum. The incision is extended laterally. Bladder flap was created digitally. The lower uterine segment was incised in a transverse fashion with the scalpel. The incision was extended laterally using blunt traction. The membranes previously had ruptured there was minimal fluid noted. The head was brought up into the incision and delivered as the certified physician assistant applied fundal pressure. The remainder of the infant was fully delivered. The cord is removed from neck. The cord was clamped and cut and the infant handed to the awaiting OB nurse. The placenta was removed using manual traction. The uterus is cleared of all clots and debris. The uterine incision was closed using 0 Monocryl in a running locked fashion. Same suture is used to imbricate. Good hemostasis is noted. The gutters are irrigated. The bleeding vessels and the space between the peritoneum and rectus muscle on the left are cauterized. The fascia was then closed using 0 Vicryl in a running stitch. Subcutaneous tissues were irrigated made hemostatic using Bovie cautery. Skin incision was closed using 4-0 Vicryl in a subcuticular fashion. Dermaflex was placed over the incision. The Mepilex dressing was placed. Sponge, needle, and instrument counts are correct per the OR staff. The patient is taken to recovery in stable condition. Estimated Blood Loss 245 Drains Yes (Cool catheter) Packing No Pathology Yes (Placenta) Complications No immediate complications Condition Stable Disposition Floor
--- NOTE | 2022-01-01 18:07 | PM.OBDSVD ---
DS: Admitting Diagnosis Discharge Date 01/03/22 Admitting Diagnosis IUP 39 wks Prior csection prolonged SROM Morbid obesity AMA DS: Discharge Diagnosis Discharge Diagnosis (1) delivery delivered: Code(s): O82 - Encounter for delivery without indication Status: Acute (2) SROM (spontaneous rupture of membranes): Status: Acute (3) History of section, low transverse: Code(s): Z98.891 - History of uterine scar from previous surgery Status: Acute (4) BMI 45.0-49.9, adult: Code(s): Z68.42 - Body mass index [BMI] 45.0-49.9, adult Status: Acute (5) 39 weeks gestation of : Code(s): Z3A.39 - 39 weeks gestation of Status: Acute OB - DS: Summary OB Procedures : NST and Ultrasound OB Procedures Intrapartum: low cervical, transverse OB Procedures: : None Peripartum Data Infant Delivery Method: Section Procedures: Procedures Operation Date: 01/01/22 17:00 Actual Procedure Side Surgeon p Repeat Section Mary Cruz MD complications: none Status at Discharge Functional status at discharge: independent ambulation Overall status at discharge: patient is progressing back to baseline Time Spent with Patient Time attestation: Total time spent providing and/or coordinating discharge services: DS: Data Data Completed and Pending Pending studies at discharge: Pending at discharge 01/01/22 17:45 Surgical [PTH] Routine Labs on day of discharge: Labs from last 24 hours 01/01/22 01/01/22 01/01/22 15:42 15:42 15:42 WBC 13.1 H RBC 3.50 L Hgb 10.5 L Hct 32.0 L MCV 91.4 MCH 30.0 MCHC 32.8 RDW 13.8 Plt Count 277 MPV 10.1 Immature Gran % (Auto) 0.7 H Neut % (Auto) 68.4 Lymph % (Auto) 23.5 [place] % (Auto) 5.6 Eos % (Auto) 1.4 Baso % (Auto) 0.4 Lymph # (Auto) 3.08 [place] # (Auto) 0.7 H Eos # (Auto) 0.2 Baso # (Auto) 0.1 Abs Immat Gran (auto) 0.09 H Absolute Neuts (auto) 9.0 H Absolute Nucleated RBC 0.0 Nucleated RBC % 0.0 Urine Opiates Screen Urine Methadone Screen Ur Barbiturates Screen Ur Phencyclidine Scrn Ur Amphetamine Screen U Benzodiazepines Scrn Urine Cocaine Screen U Cannabinoids Screen RPR Pending Blood Type B Positive Antibody Screen Negative 01/01/22 15:42 WBC RBC Hgb Hct MCV MCH MCHC RDW Plt Count MPV Immature Gran % (Auto) Neut % (Auto) Lymph % (Auto) [place] % (Auto) Eos % (Auto) Baso % (Auto) Lymph # (Auto) [place] # (Auto) Eos # (Auto) Baso # (Auto) Abs Immat Gran (auto) Absolute Neuts (auto) Absolute Nucleated RBC Nucleated RBC % Urine Opiates Screen Negative Urine Methadone Screen Negative Ur Barbiturates Screen Negative Ur Phencyclidine Scrn Negative Ur Amphetamine Screen Negative U Benzodiazepines Scrn Negative Urine Cocaine Screen Negative U Cannabinoids Screen Positive A RPR Blood Type Antibody Screen Discharge Plan Discharge Attending physician on discharge: Mary Cruz Discharging Clinician: Gibran Gómez Anticipated Discharge Date/Time: 01/04/22 18:09 Patient Disposition: Home, Self-Care Activity: may shower, may drive after 2 weeks and pelvic rest Diet: regular Wound Care Instructions: keep dressing dry Discharge Instructions: Education: Mom and Baby Guide Given to: Mother Follow-Up: Call your delivering provider's office for an appointment to be seen in: 1 Week Mom and baby should come to the [facility] for the follow-up appointment. Appointment Date/Time: January 05, 2022 at 1:30 pm What to expect at your follow-up visit: Physical Assessment Call [phone] if you are unable to keep your appointment time. BREAST CARE: * Wear a snug supportive bra. * For engorgement discomfort:
[2022-01-01] MEDS: OXYTOCIN 30 UNITS/NS 500 ML 30 UNITS/500 ML BAG 125 UNITS IV CONT (18:24)
[2022-01-01] MEDS: MORPHINE SULFATE INJ (*CRX) 10 MG/ML AMP 2 MG IV PUSH ×2 (20:37→20:47)
[2022-01-01] MEDS: KETOROLAC 30 MG/ML VIAL (*BKC) IV PUSH (21:01)
--- NOTE | 2022-01-01 21:53 | OBPPTRN ---
Patient transferred to post room #286 via stretcher. Support person present. Oriented to unit, room, information board, rooming in, admission packet and security measures. Patient verbalizes understanding.
[2022-01-01] MEDS: HYDROcodone/acetaminophen (*CRX) 5-325 MG TABLET 1 TAB PO (23:08)
[2022-01-01] MEDS: DEXTROSE 5%/0.45% SOD CHL 1,000 ML 125 ML IV CONT (23:08)
[2022-01-02] VITALS (7 sets, daily range): BP systolic 103–138; BP diastolic 61–82; PULSE 86–91; RESP 16–20; TEMP 36.2–36.9; O2SAT 99–100
[2022-01-02] MEDS: diphenhydrAMINE HCl CAP 25 MG CAPSULE PO (00:15)
[2022-01-02] MEDS: IBUPROFEN 600 MG TABLET PO ×3 (04:56→17:55)
[2022-01-02] MEDS: HYDROcodone/acetaminophen (*CRX) 5-325 MG TABLET 1 TAB PO ×3 (04:57→17:55)
[2022-01-02 05:44] LABS: Basophils Percent Auto 0.3 % (0.2-1.2); Eosinophils Absolute Auto 0.1 K/mm3 (0-0.3); Hematocrit 26.5 % (37.0-47.0); Hemoglobin 8.7 g/dL (12.0-15.0); Immature Granulocyte Absolute 0.07 K/mm3 (0.00-0.031); Immature Granulocyte Percent A 0.6 % (0-0.5); Lymphocytes Absolute Auto 2.44 K/mm3 (0.9-3.2); Mean Corpuscular HGB Conc 32.8 g/dl (32-36); Mean Corpuscular Hemoglobin 30.1 pg (26-34); Mean Corpuscular Volume 91.7 fl (80-100); Mean Platelet Volume 10.2 fl (7.4-10.4); Monocytes Absolute Auto 0.8 K/mm3 (0.1-0.6); Monocytes Percent Auto 7.1 % (2.6-8.5); Neutrophils Absolute Auto 8.1 K/mm3 (1.3-6.7); Platelet Count Result 212 k/mm3 (150-375); Red Blood Count 2.89 M/mm3 (4.2-5.4); Red Cell Distribution Width 13.7 % (11.5-14.5); White Blood Count 11.6 K/mm3 (4.5-10.0)
[2022-01-02 06:39] LABS: Rapid Plasma Reagin Non-Reactive (NonReactive)
--- NOTE | 2022-01-02 08:38 | PM.OBPNVD ---
OB - PN: Subj Subjective Date/time seen: 01/02/22 08:38 Patient comments: no complaints and pain well controlled baby status: doing well OB - PN: Obj Data Labs CBC & Chem 7: 01/02/22 04:56 Labs: Laboratory Results - last 24 hr 01/01/22 01/01/22 01/01/22 15:42 15:42 15:42 WBC 13.1 H RBC 3.50 L Hgb 10.5 L Hct 32.0 L MCV 91.4 MCH 30.0 MCHC 32.8 RDW 13.8 Plt Count 277 MPV 10.1 Immature Gran % (Auto) 0.7 H Neut % (Auto) 68.4 Lymph % (Auto) 23.5 [place] % (Auto) 5.6 Eos % (Auto) 1.4 Baso % (Auto) 0.4 Lymph # (Auto) 3.08 [place] # (Auto) 0.7 H Eos # (Auto) 0.2 Baso # (Auto) 0.1 Abs Immat Gran (auto) 0.09 H Absolute Neuts (auto) 9.0 H Absolute Nucleated RBC 0.0 Nucleated RBC % 0.0 Urine Opiates Screen Negative Urine Methadone Screen Negative Ur Barbiturates Screen Negative Ur Phencyclidine Scrn Negative Ur Amphetamine Screen Negative U Benzodiazepines Scrn Negative Urine Cocaine Screen Negative U Cannabinoids Screen Positive A RPR Non-reactive Blood Type Antibody Screen 01/01/22 01/02/22 15:42 04:56 WBC 11.6 H RBC 2.89 L Hgb 8.7 L Hct 26.5 L MCV 91.7 MCH 30.1 MCHC 32.8 RDW 13.7 Plt Count 212 MPV 10.2 Immature Gran % (Auto) 0.6 H Neut % (Auto) 70.0 Lymph % (Auto) 21.0 [place] % (Auto) 7.1 Eos % (Auto) 1.0 Baso % (Auto) 0.3 Lymph # (Auto) 2.44 [place] # (Auto) 0.8 H Eos # (Auto) 0.1 Baso # (Auto) 0.0 Abs Immat Gran (auto) 0.07 H Absolute Neuts (auto) 8.1 H Absolute Nucleated RBC 0.0 Nucleated RBC % 0.0 Urine Opiates Screen Urine Methadone Screen Ur Barbiturates Screen Ur Phencyclidine Scrn Ur Amphetamine Screen U Benzodiazepines Scrn Urine Cocaine Screen U Cannabinoids Screen RPR Blood Type B Positive Antibody Screen Negative OB - PN A/P Plan day: 1 Plan: routine care Time Spent With Patient Time: Total time spent is greater than 50% in coordination of care (as documented) at patient's floor/unit and/or counseling patient: Exam Narrative: bandage intact, dry : Bimanual exam- vagina & uterus: other (Uterus firm, nt @U)
--- NOTE | 2022-01-02 09:18 | WPDANLDPN2 ---
Anes-Prog Note L&D Date/Time: 01/02/22 09:18 Comfortable throughout: section Neuraxial method: spinal Epidural/Spinal procedure site: clean & non-tender Neuro status: Neuro function grossly intact. Cardiovascular status: normal Respiratory status: normal Airway patency: baseline Mental status: baseline Post-Op hydration status: normal Vital Signs: Last Vital Signs Temp 36.9 C 01/02/22 07:35 Pulse 91 01/02/22 07:35 Resp 18 01/02/22 07:35 BP 103/61 01/02/22 07:35 Pulse Ox 99 01/02/22 07:35 O2 Del Method Room Air 01/02/22 04:45 Pain score (VAS): 2/10 I/O: Intake & Output 01/01/22 01/02/22 01/02/22 23:59 07:59 15:59 Intake Total 1100 1550 Output Total 75 1150 Balance 1025 400 Post-procedural complaints: none Patient feedback: Patient satisfied with anesthetic care.
--- NOTE | 2022-01-02 09:19 | WPDANLDNPN2 ---
Anes-Prog Note L&D-Neuraxial Date/Time: 01/02/22 09:19 Neuraxial medications: intrathecal PF morphine Opiod-related complaints: none Patient feedback: Patient satisfied with post-operative pain management.
[2022-01-02] MEDS: MULTIVIT/MIN/PREN/FOL AC/IRON TABLET 1 TAB PO (11:24)
--- NOTE | 2022-01-02 11:24 | PCCCNOTE ---
Addendum entered by HOMA Hendricks 01/02/22 11:30: Intake #[id number]. Original Note: Received referral for positive THC. Met with pt., her spouse/father of baby at bedside. Pt. denies recent use of THC. She indicates last use was prior to being known. Herself and spouse live with other 2 children, ages 16 and 19. They plan to return home with at discharge. They indicate having all needed items to care for . They deny any history with DCFS. Provided resources and encouraged they contact any/all of interest. Reported pt. situation to DCFS; it does not qualify for investigation. Information will be kept on file. Have discussed above with RN; no further concerns at this time.
[2022-01-02] MEDS: POLYSACCHARIDE IRON COMPLEX 150 MG CAPSULE PO ×2 (11:26→17:56)
[2022-01-02] MEDS: DOCUSATE SODIUM 100 MG CAPSULE PO ×2 (11:26→17:56)
--- NOTE | 2022-01-02 14:44 | PC.NURSE ---
[id number] RN brought infant to mother from the nursery to assist with a moment. Introductions were made, then consulted with patient to assess needs related to . Mother led the conversation with her experience feeding her so far. Mother works well with her . Mother verbalizes her experience with her daughters (who are now 16,19). is opening wide without latching. 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 Mother attempts to squeeze breast into infant's mouth with and without a big wide open gape. There is peau d' orange present on lower side of bilateral breast that reaches up to around the areola and nipple. Encouraged understanding of the benefits of skin to skin (unwrapping and placing vertically on her chest), responsive feeding and how to watch for early feeding signs, frequency of feeding on demand about every 8-12 times in 24 hours (every 2-3 hours), milk production, duration of feeding, signs of adequate intake/output and how to record on the feeding sheet. Reviewed positioning and ear, shoulder, hip alignment, supporting the breast, asymmetrical latch (off-center), and leading with the chin with a big open side gape. RN suggested attempt to breast with football positioning and mother stated she wanted to use cross cradle position. Infant at times will open wide and latch to the nipple but not maintain latch. Nipple care reviewed with optimal latch and good positioning. Mother is not responding to suggestions at this time. Dr. Cruz is at bedside requesting infant to the nursery for a circumcision. Mother voiced understanding of responsive feedings, stimulating with skin to skin, hand expressed colostrum, touch, talking to to encourage if it has been 2 -3 hours since the start of the last , to call if infant does not latch or there is discomfort with . Reported to the primary RN who entered the room to take to the nursery. 0935 -Return assessment of mother's experience infant. Mother states she just breastfed for 10 min and baby latched great . Mother voiced understanding of responsive feedings, stimulating with skin to skin, hand expressed colostrum, touch, talking to to encourage if it has been 2 -3 hours since the start of the last , to call if infant does not latch or there is discomfort with . Mother voiced to call for a latch assessment at the next feeding. Reported to primary RN. [id number] Reviewed milk production and latching as it pertains to mother's medical history, drug use, hypothyroidism with no medications, anemia, and morbid obesity. Mother shared that her daughter did not latch well, her nipples were sore and she used tea bags for nipple comfort and she decided to pump and feed. Reviewed good positioning and latching for effective . [id number] Consulted with patient to assess needs related to . Mother led conversation with her experience with feeding baby so far. Mother works well with her with encouragement. Reviewed working with , breast, nipples and how to protect the nipples with an optimal deep latch, good positioning, and good hand washing. Encouraged understanding the benefits of skin to skin, responding to feeding cues, frequencies of feeding 8-12 times in 24 hours (approximately 2-3 hours), duration of feedings, milk production, intake/output feeding sheet and signs of adequate intake encouraging swallowing at the breast. Reviewed positioning and alignment, supporting breast, off-centered (asymmetrical latch) and leading with the chin with big open wide gape. attempted to latch to the right breast in football position. Latch assessed was not optimal and mother states infant was latched and well for 15 min prior to RN coming into the room . An attempt was made to th
[2022-01-02] MEDS: LORATADINE 10 MG TABLET PO (15:13)
[2022-01-03] MEDS: HYDROcodone/acetaminophen (*CRX) 5-325 MG TABLET 1 TAB PO ×6 (01:42→23:31)
[2022-01-03] MEDS: IBUPROFEN 600 MG TABLET PO ×4 (01:42→23:31)
[2022-01-03 07:39] VITALS: BP 124/78; PULSE 81; RESP 18; TEMP 36.7; O2SAT 99
[2022-01-03] MEDS: POLYSACCHARIDE IRON COMPLEX 150 MG CAPSULE PO ×2 (07:45→16:10)
[2022-01-03] MEDS: DOCUSATE SODIUM 100 MG CAPSULE PO ×2 (07:46→16:10)
[2022-01-03] MEDS: MULTIVIT/MIN/PREN/FOL AC/IRON TABLET 1 TAB PO (07:47)
--- NOTE | 2022-01-03 09:22 | PM.OBDSVD ---
DS: Admitting Diagnosis Discharge Date 01/04/2022 Admitting Diagnosis OB - DS: Summary OB Procedures : None OB Procedures Intrapartum: Spontaneous Vag Delivery OB Procedures: : None Peripartum Data Procedures: Procedures Operation Date: 01/01/22 17:00 Actual Procedure Side Surgeon p Repeat Section Mary Cruz MD Time Spent with Patient Time attestation: Total time spent providing and/or coordinating discharge services: DS: Data Data Completed and Pending Pending studies at discharge: Pending at discharge 01/01/22 17:45 Surgical [PTH] Routine Discharge Plan Discharge Attending physician on discharge: Mary Cruz Discharging Clinician: Girban Gómez Anticipated Discharge Date/Time: 01/04/22 18:09 Patient Disposition: Home, Self-Care Activity: may shower, may drive after 2 weeks and pelvic rest Diet: regular Wound Care Instructions: keep dressing dry Patient Instructions: Antibiotic Form Stand Alone Forms: General Discharge Information Follow-up/Referrals: Mary Cruz MD [Physician] - 1 Week (and 6 wk) Discharge Medications: New ibuprofen 600 mg Tablet 600 mg PO Q6H PRN (Reason: Cramping) Qty: 30 0RF Continued #2 Tablet 1 tablet PO DAILY Date of admission: 01/01/22 15:10 Primary Care Provider: UNKNOWN,DOCTOR Admitting Provider: Mary Cruz Attending physician on admission: Mary Cruz Condition: Stable
--- NOTE | 2022-01-03 17:35 | PC.NURSE ---
Patient viewed the discharge video Mother & Baby Care, The First Two Weeks . Patient was given the opportunity and encouraged to ask questions. Patient verbalized understanding of information shared and has been given the mother/baby guide for home reference.
[2022-01-03 20:20] VITALS: BP 136/90; PULSE 84; RESP 16; TEMP 37; O2SAT 100
[2022-01-04] MEDS: HYDROcodone/acetaminophen (*CRX) 5-325 MG TABLET 1 TAB PO ×3 (02:32→13:19)
[2022-01-04] MEDS: IBUPROFEN 600 MG TABLET PO ×2 (06:17→13:18)
[2022-01-04 07:30] VITALS: BP 108/66; PULSE 101; RESP 16; TEMP 36.8; O2SAT 98
[2022-01-04] MEDS: DOCUSATE SODIUM 100 MG CAPSULE PO (07:44)
[2022-01-04] MEDS: POLYSACCHARIDE IRON COMPLEX 150 MG CAPSULE PO (07:44)
[2022-01-04] MEDS: MULTIVIT/MIN/PREN/FOL AC/IRON TABLET 1 TAB PO (07:44)
[2022-01-05 14:04] VITALS: BP 124/87; PULSE 89; RESP 20; TEMP 37; O2SAT 100
== END 2022-01-04 14:05 | disposition home or self-care (01) | DRG 540 ==
LOC: ANHLDR 18:09 → ANHOB2 01-04 08:59 → ANHLDR 01-07 10:59 → ANHOB2 01-07 10:59
PROVIDERS: Admitting Provider Obstetrics & Gynecology Gynecology; Visit Provider Obstetrics & Gynecology
PROC: (CPT 59514; principal; 2022-01-02 07:30)
DX: O34.219 Maternal care for unspecified type scar from previous cesarean delivery (principal); D25.9 Leiomyoma of uterus, unspecified; O99.284 Endocrine, nutritional and metabolic diseases complicating childbirth; O99.214 Obesity complicating childbirth; E66.01 Morbid (severe) obesity due to excess calories; O69.81X0 Labor and delivery complicated by cord around neck, without compression, not applicable or unspecified; Z3A.39 39 weeks gestation of pregnancy; Z37.0 Single live birth; O42.92 Full-term premature rupture of membranes, unspecified as to length of time between rupture and onset of labor
CPT/HCPCS: 36415; 80307; 85025; 86592; 86850; 86900; 86901; 88307; A9270; J0131; J0690; J1885; J2270; J2274; J2370; J2405; J2590; J7120

== ENCOUNTER 2023-07-22 10:21 | Outpatient (CLI) | payer OTHER, SELFPAY ==
--- NOTE | ~2023-07-22 | MM_ITS ---
EXAMINATION: MM screening david BI w radha HISTORY: Screening TECHNIQUE: Craniocaudal and mediolateral oblique 3-D tomosynthesis images were obtained and synthetic 2-D images were generated. CAD analysis was submitted and interpreted. COMPARISON: Comparison to multiple prior studies sequentially, with oldest reviewed study dated 08/22. BREAST PARENCHYMAL COMPOSITION: Breast composition is almost entirely fatty FINDINGS: Stable subareolar mass of the right breast, previously biopsy-proven benign. There is no ev idence of suspicious mass, calcification, or architectural distortion to suggest malignancy in either breast. There has been no suspicious interval change. IMPRESSION: 1. No mammographic evidence of malignancy. 2. Recommend routine screening mammography in one year. BI-RADS Category 2: Benign finding(s). Reviewed, dictated and finalized at location A. SITE WASTEWATER SYSTEMS TECHNICIAN
== END 2023-07-22 10:22 | disposition home or self-care (01) ==
PROVIDERS: Visit Provider Obstetrics & Gynecology Gynecology
DX: Z12.31 Encounter for screening mammogram for malignant neoplasm of breast (principal)
CPT/HCPCS: 77063; 77067

== ENCOUNTER 2024-09-30 09:19 | Outpatient (CLI) | payer OTHER, SELFPAY ==
--- NOTE | ~2024-09-30 | MM_ITS ---
EXAMINATION: MM screening david BI w radha HISTORY: Screening mammogram TECHNIQUE: Craniocaudal and mediolateral oblique 3-D tomosynthesis images were obtained and synthetic 2-D images were generated. CAD analysis was submitted and interpreted. COMPARISON: 07/22/2023, 08/22/2020 BREAST PARENCHYMAL COMPOSITION:Not Dense. The breasts are almost entirely fatty FINDINGS: Stable subareolar lobulated right breast mass with biopsy clip. No suspicious mass, calcifi cation, or architectural distortion are identified in either breast to suggest malignancy. There has been no suspicious interval change. IMPRESSION: No mammographic evidence of malignancy. Recommend routine screening mammography in one year. BI-RADS Category 2: Benign finding(s). Reviewed, dictated and finalized at location . D CARE TECHNICIAN
--- OUTSIDE RECORDS SUMMARY | 2024-09-30 09:21 | XMS_ITS | Referral Summary ---
Author Organization [facility] [address] [place] [id number] Care Team Providers Care Rechecker Name Role Phone Unknown, Notinfile Primary Care Provider Unavail able Allergies No known active allergies Medications naproxen (NAPROSYN,ALEVE ) 500 mg tablet 05/08/2017 Act sloan buPROPion XL (WELLBUTRIN XL) 150 mg 24 hr tablet 07/15/2017 Active ergocalciferol (VITAMIN D) 50,000 unit capsule 07/15/2017 Active QUEtiapine (SEROquel) 25 mg tabletIndicatio ns:half tab twice daily Take 25 mg by mouth 2 (two) times a day. Active dexamethasone (DECADRON) 1 mg tabletIndicatio ns:Morbid obesity with BMI of 50.0-59.9, adult (HCC) Take 1 tablet when directed 1 tablet 08/03/2017 Active levothyroxine (SYNTHROID, LEVOTHROID) 75 mcg tablet TAKE 1 TABLET(75 MCG) BY MOUTH DAILY 30 tablet 11/09/2017 Active Active Problems Problem Noted Date Diagnosed Date Acquired hypothyroidism 07/26/2017 Assessment & Plan (07/26/2017 10:59 AM SUPPLY CHAIN GENERALIST): Reviewed pt. Previous lab records - advised to continue current Levothyroxine 50 mcg oral daily - recheck TFT soon - further plans based on repeat levels Instructions for taking levothyroxine Brand name is preferred Take thyroid pill all by itself Take thyroid pill one hour before food or 2 to 3 hours after food Heat, humidity, and direct sunlight will cause a loss of potency Never store thyroid pill in the bathroom The medication should be taken daily. If one or more pills are missing in a week, they can be taken all together at once, making sure at the end of the week, 7 tabs have been taken. - follow up in 3 months Morbid obesity with BMI of 50.0-59.9, adult 07/09 Assessment & Plan (07/26/2017 11:02 AM SUPPLY CHAIN GENERALIST): Obesity is worsening. Discussed the patient's BMI. The BMI is above average; BMI management plan is completed. General weight loss/lifestyle modification strategies discussed (elicit support from others; identify saboteurs; non-food rewards, etc). Behavioral treatment: stress management. Diet interventions: moderate (500 kCal/d) deficit diet. Informal exercise measures discussed, e.g. taking stairs instead of elevator. Regular aerobic exercise program discussed. - r/o secondary causes for weight gain - r/o asuncion's syndrome, check IGF -1 levels - r/o any underlying metabolic conditions - check fasting Glucose, CMP, HbA1c , Lipid panel - advised once above work up comes back negative - advise to do daily food log for 2-3 weeks, and see hot knife cutter and follow up with hot knife cutter and exercise regimen - follow up in 3 months - advise pt. To call us if she does not hear back from us in one week after lab work up Social History Tobacco Use Types Packs/Day Years Used Date Smoking Tobacco: Some Days Smokeless Tobacco: Never Alcohol Use Standard Drinks/Week Comments Yes 0 (1 standard drink = 0.6 oz pur e alcohol) Personal Safety Answer Date Recorded Getting School Help Needed Not on file 10/23 Comments Unknown Sex and Gender Information Value Date Recorded Sex Assigned at Not on file Legal Sex Female 11:44 AM SUPPLY CHAIN GENERALIST Gender Identity Not on file Sexual Orientation Not on file Last Filed Vital Signs Vital Sign Reading Time Taken Comments Blood Pressure 124/89 12/21/2017 5:24 PM CDT Pulse 82 12/21/2017 5:24 PM CDT Temperature 36.1 C (96.9 F) 12/21/2017 5:24 PM CDT Respiratory Rate 14 07/26/2017 9:43 AM SUPPLY CHAIN GENERALIST Oxygen Saturation 100% 12/21/2017 5:24 PM CDT Inhaled Oxygen Concentration - - Weight 137.4 kg (302 lb 14.6 oz) 12/21/2017 5:24 PM CDT Height 162.6 cm (5' 4 ) 12/21/2017 5:24 PM CDT Body Mass Index 52 12/21/2017 5:24 PM CDT Plan of Treatment Not on file Insurance [facility] Care Teams Rechecker Relationship Specialty Start Date End Date Unknown, Notinfile PCP - General 07/20/17
--- OUTSIDE RECORDS SUMMARY | 2024-09-30 09:21 | XMS_ITS | Clinical Summary ---
Author Organization [facility] [address] [place] [id number] Care Team Providers Care Jockey Agent Name Role Phone Unknown, Notinfile Primary Care [...] 07/26/2017 Assessment & Plan (07/26/2017 10:59 AM PACKING MACHINE PILOT CAN ROUTER): Reviewed pt. Previous lab records - advised [...] 07/09 Assessment & Plan (07/26/2017 11:02 AM PACKING MACHINE PILOT CAN ROUTER): Obesity is worsening. Discussed the patient's BMI. [...] food log for 2-3 weeks, and see cut press operator and follow up with cut press operator and exercise regimen - follow up in 3 months - advise pt. To call us if she does not hear back from us in one week after lab work up Medical History Medical History Date Comments Anemia 2003 Thyroid disease 2014 Family History Medical History Relation Name Comments Seizures Brother Stroke Brother Hypertension Maternal Grandmother Cancer Paternal Grandmother Diabetes Paternal Grandmother Relation Name Status Comments Brother Maternal Grandmother Paternal Grandmother Social History Tobacco Use Types Packs/Day Years [...] on file Legal Sex Female 11:44 AM PACKING MACHINE PILOT CAN ROUTER Gender Identity Not on file Sexual Orientation Not on file Obstetrics History Last Filed Vital Signs Vital Sign Reading Time Taken Comments Blood Pressure 124/89 12/21/2017 5:24 PM CDT Pulse 82 12/21/2017 5:24 PM CDT Temperature 36.1 C (96.9 F) 12/21/2017 5:24 PM CDT Respiratory Rate 14 07/26/2017 9:43 AM PACKING MACHINE PILOT CAN ROUTER Oxygen Saturation 100% 12/21/2017 5:24 PM CDT Inhaled Oxygen Concentration - - Weight 137.4 kg (302 lb 14.6 oz) 12/21/2017 5:24 PM CDT Height 162.6 cm (5' 4 ) 12/21/2017 5:24 PM CDT Body Mass Index 52 12/21/2017 5:24 PM CDT Plan of Treatment Not on file Insurance [facility] Care Teams Jockey Agent Relationship Specialty Start Date End Date Unknown, Notinfile PCP - General 07/20/17
--- OUTSIDE RECORDS SUMMARY | 2024-09-30 09:21 | XMS_ITS | Clinical Summary ---
Author Organization [facility] Care Team Providers Care Pharmacy District Manager Name Role Phone Unavailable Primary Care Provider Unavailabl e Social History Tobacco Use Types Packs/Day Years Used Date Smoking Tobacco: Never Assessed Comments Unknown Sex and Gender Information Value Date Recorded Sex Assigned at Not on file Legal Sex Female 3:51 PM CDT Gender Identity Not on file Sexual Orientation Not on file Plan of Treatment Health Maintenance Due Date Last Done Comments Hepatitis C Virus (HCV) Screening 1980 TdaP Immunization 1980 Hepatitis B Immunization (1 of 3 - 19+ 3-dose series) 1999 Pap Smear 2001 Cervical Cancer Screening (CCS) 2010 HPV/Cotest 2010 Discussion re Starting/Frequency of Mammograms 2020 Influenza Immunization (#1) 2024 SARS-COV-2 Immunization ( season) 2024 Respiratory Syncytial Virus (RSV) Immunization (Adult) (1 - 1-dose 75+ series) 2055 DTaP/Tdap/Td Immunization Discontinued 1990, 02/24/1985, 12/05/1982, Additional history exists Meningococcal Immunization (ACWY) Aged Out No longer eligible based on patient's age to complete this topic Pneumococcal Immunization Combined Aged Out No longer eligible based on patient's age to complete this topic Rotavirus Immunization Aged Out No lo nger eligible based on patient's age to complete this topic
--- OUTSIDE RECORDS SUMMARY | 2024-09-30 09:22 | XMS_ITS | Clinical Summary ---
Author Organization [facility] Address [address] [place] [phone] Phone Care Team Providers Care Property Assessment Monitor Name Role Phone Unavailable Primary Care Provider Unavailabl e Social History Tobacco Use Types Packs/Day Years Used Date Smoking Tobacco: Never Assessed Comments Unknown Sex and Gender Information Value Date Recorded Sex Assigned at Not on file Legal Sex Female 1:58 PM AIRCRAFT REFUELER Gender Identity Not on file Sexual Orientation Not on file Plan of Treatment Health Maintenance Due Date Last Done Comments DTAP/TDAP/TD VACCINES (1 - Tdap) 1999 HEPATITIS B VACCINES (1 of 3 - 19+ 3-dose series) 1999 CERVICAL CANCER SCREENING 2010 BREAST CANCER SCREENING 2020 INFLUENZA VACCINE (#1) 2024 HPV VACCINES Aged Out No longer eligi ble based on patient's age to complete this topic PNEUMOCOCCAL VACCINE 0-64 YEARS Aged Out No longer eligible based on patient's age to complete this topic Insurance [employer] [place]
--- OUTSIDE RECORDS SUMMARY | 2024-09-30 09:22 | XMS_ITS | Data Portability ---
Author Organization [place] - [place] [facility] Address [address] [place] [address] Care Team Providers Care Assistant Superintendent For Curriculum Name Role Phone RADHA MCCRAY Polisher Brass [phone] FEDERICO CRAMER Ride Assembly Supervisor GISELA ABERNATHY General Surgeon Assessment No assessment recorded. Plan of Treatment Reminders Order Date Submit Date Provider Last Modified By Organization Details Last Modified Time Details Appointments None recorded. Lab CBC w/ auto diff 2020 [facility], [address], [place], [address], 14:59:45 CMP, serum or plasma 2020 [facility], [address], [place], [address], 10:37:00 lipid panel, serum 2020 [facility], [address], [place], [address], 10:36:58 urinalysis , complete 2020 [facility], [address], [place], [address], 10:37:00 HIV 1+2 AB + HIV 1 p24 Ag, qualitativ e immunoassa y, serum 2020 021 [facility], [address], [place], [address], 1 15:00:10 HbA1c (hemoglobi n A1c), blood 2020 021 [facility], [address], [place], [address], 1 10:37:01 Referral dermatolog ist referral - Multiple fat lobules 2020 021 [email or web address] Pedro Hauser, [address], [place], [address], 10:48:14 gastroente rologist referral - Hepatic steatosis 2020 021 [email or web address] Not available 11:10:[address]/dietiti an referral - BMI 52.6 2017 018 ATHENAFAX Not available 8 16:35:24 endocrinol ogy referral - 37 y/o F with hypothyroi d. Currently on 75mcg synthroid. Most recent TSh 1.16 (12/2017) Pt would like endo to manage hypothyroi d [address] Endocrinology , [facility] [place], [address], 8 18:16:54 Procedures None recorded. Surgeries None recorded. Imaging US, groin - Lipoma vs LN 2020 021 ATHENAFAX [facility], [address] [facility], [place], [address], 10:04:14 US, axilla - LN? 2020 021 [facility], [address] [facility], [place], [address], 15:49:02 US, unlisted 2020 021 SAMEER [facility], [address] [facility], [place], [address], 09:23:44 Medication Orders Voltaren 1 % topical gel 2017 018 [id number], [address] [facility], [place], [place], [id number], 14:40:28 Patient TargetsNo targets recorded. Patient Instructions Encounter Date Encounter Id Patient Instructions Last Modified By Organization Details Last Modified Time 01/25/2018 [id number] I have reviewed the above record as preceptor for this encounter. I was available for consultation during this encounter. The case was NOT discussed with me [id number]. I agree with the assessment and plan for this encounter as described above. [email or web address] Not available 01/27/2018 16:44:30 02/28/2018 [id number] I was present and available in the family medicine clinic to discuss the patient's care during the appointment. I agree with the resident's assessment and plan as documented. HL [email or web address] Not available 03/01/2018 12:19:39 10/04/2020 [id number] Core Needle Breast Biopsy: About This Test oajao Not available 10/04/2020 14:59:12 hypothyroidism: care instructions oajao Not available 10/04/2020 14:58:55 body mass index: care instructions oajao Not available 10/04/2020 14:58:55 learning about healthy weight oajao Not available 10/04/2020 14:58:55 Records (MMG and US report) Most recent consultation note from Dr Abernathy Lab results from [facility] scan report Labs US Folllow up in 6 weeks oajao Not available 10/04/2020 15:22:49 11/18/2020 [id number] kidney stone: care instructions oajao Not available 11/18/2020 13:08:28 learning about diet for kidney stone prevention oajao Not available 11/18/2020 13:08:28 breast lumps (noncancerous): care instructions oajosho Not available 11/18/2020 13:02:26 D/C report and US report from Colonoscopy report from Dr Perez Weight loss GI Dermatology Follow up in 3 months and PRN oajere Not available 11/18/2020 13:23:33 All her imaging (US and CT) and lab results were discussed in detail [email or web address] Not available 11/18/2020 13:24:34 Reason for Referral Licensed Vocational Nurse/dietitian Refer ral for Morbid obesity BMI 52.6 Referring Physician: [facility], Encounter Date: 02/28/2018 Endocrinology Referral for H ypothyroidism 37 y/o F with hypothyroid. Currently on 75mcg synthroid. Most recent TSh 1.16 (12/2017) Pt would like endo to manage hypothyroid Referring Physician: [facility], Encounter Date: 02/28/2018 Plastics Fabrication Supervisor Referral for F atty dimpling of skin Multiple fat lobules Referring Physician: Chas Hoyos, Internal Medicine, Encounter Date: 11/18/2020 Inventory Control Planner Referral for Steatosis of liver Hepatic steatosis Referring Physician: Chas Hoyos, Internal Medicine, Encounter Date: 11/18/2020 Results Created Date Observation Date Name Description Value Unit Range Abnormal Flag Note LastModifiedBy Organization Detail LastModifiedTime 12/29/19 18 12/29/2017 TSH + free T4, serum TSH 1.160 uIU/m L 0.450- 4.500 Not Available [facility] ([facility]) [address] [facility], [place], [address], 12/29/2017 09:24:17 12/29/19 18 12/29/2017 TSH + free T4, serum T4,free(dire ct) 1.17 NG/dL 0.82-1 .77 Not Available [facility] ([facility]) [address] [facility], [place], [address], 12/29/2017 09:24:17 12/29/19 18 12/29/2017 CBC w/ auto diff WBC 10.5 x10e3 /uL 3.4-10 .8 Not Available [facility] ([facility]) [address] [place], [address], 12/29/2017 09:24:18 12/29/19 18 12/29/2017 CBC w/ auto diff RBC 4.15 x10e6 /uL 3.77-5 .28 Not Available [facility] ([facility]) [address] [place], [address], 12/29/2017 09:24:18 12/29/19 18 12/29/2017 CBC w/ auto diff hemoglobin 12.3 g/dL 11.1-1 5.9 Not Available [facility] ([facility]) [address] [place], [address], 12/29/2017 09:24:18 12/29/19 18 12/29/2017 CBC w/ auto diff hematocrit 36.6 % 34.0-4 6.6 Not Available [facility] ([facility]) [address] [place], [address], 12/29/2017 09:24:18 12/29/19 18 12/29/2017 CBC w/ auto diff MCV 88 fL 79-97 Not Available [facility] ([facility]) [address] [place], [address], 12/29/2017 09:24:18 12/29/19 18 12/29/2017 CBC w/ auto diff MCH 29.6 pg 26.6-3 3.0 Not Available [facility] ([facility]) [address] [place], [address], 12/29/2017 09:24:18 12/29/19 18 12/29/2017 CBC w/ auto diff MCHC 33.6 g/dL 31.5-3 5.7 Not Available [facility] ([facility]) [address] [facility] [place], [address], 12/29/2017 09:24:18 12/29/19 18 12/29/2017 CBC w/ auto diff RDW 14.4 % 12.3-1 5.4 Not Available [facility] ([facility]) [address] [facility], [place], [address], 12/29/2017 09:24:18 12/29/19 18 12/29/2017 CBC w/ auto diff platelets 318 x10e3 /uL 150-37 9 Not Available [facility] ([facility]) [address] [facility], [place], [address], 12/29/2017 09:24:18 12/29/19 18 12/29/2017 CBC w/ auto diff neutrophils 58 % not estab. Not Available [facility] ([facility]) [address] [facility], [place], [address], 12/29/2017 09:24:18 12/29/19 18 12/29/2017 CBC w/ auto diff lymphs 34 % not estab. Not Available [facility] ([facility]) [address] [facility], [place], [address], 12/29/2017 09:24:18 12/29/19 18 12/29/2017 CBC w/ auto diff monocytes 6 % not estab. Not Available [facility] ([facility]) [address] [facility], [place], [address], 12/29/2017 09:24:18 12/29/19 18 12/29/2017 CBC w/ auto diff eos 2 % not estab. Not Available [facility] ([facility]) [address] [facility], [place], [address], 12/29/2017 09:24:18 12/29/19 18 12/29/2017 CBC w/ auto diff basos 0 % not estab. Not Available [facility] ([facility]) [address] [facility], [place], [address], 12/29/2017 09:24:18 12/29/19 18 12/29/2017 CBC w/ auto diff immature cells HEAVY TRUCK DRIVER Not Available [facility] ([facility]) [address] [place], [address], 12/29/2017 09:24:18 12/29/19 18 12/29/2017 CBC w/ auto diff neutrophils (absolute) 6.0 x10e3 /uL 1.4-7. 0 Not Available [facility] ([facility]) [address] [place], [address], 12/29/2017 09:24:18 12/29/19 18 12/29/2017 CBC w/ auto diff lymphs (absolute) 3.6 x10e3 /uL 0.7-3. 1 above high normal Not Available [facility] ([facility]) [address] [place], [address], 12/29/2017 09:24:18 12/29/19 18 12/29/2017 CBC w/ auto diff monocytes(ab solute) 0.7 x10e3 /uL 0.1-0. 9 Not Available [facility] ([facility]) [address] [place], [address], 12/29/2017 09:24:18 12/29/19 18 12/29/2017 CBC w/ auto diff eos (absolute) 0.2 x10e3 /uL 0.0-0. 4 Not Available [facility] ([facility]) [address] [place], [address], 12/29/2017 09:24:18 12/29/19 18 12/29/2017 CBC w/ auto diff baso (absolute) 0.0 x10e3 /uL 0.0-0. 2 Not Available [facility] ([facility]) [address] [place], [address], 12/29/2017 09:24:18 12/29/19 18 12/29/2017 CBC w/ auto diff immature granulocytes 0 % not estab. Not Available [facility] ([facility]) [address] [facility] [place], [address], 12/29/2017 09:24:18 12/29/19 18 12/29/2017 CBC w/ auto diff immature grans (abs) 0.0 x10e3 /uL 0.0-0. 1 Not Available [facility] ([facility]) [address] [facility] [place], [address], 12/29/2017 09:24:18 12/29/19 18 12/29/2017 CBC w/ auto diff NRBC HEAVY TRUCK DRIVER Not Available [facility] ([facility]) [address] [facility] [place], [address], 12/29/2017 09:24:18 12/29/19 18 12/29/2017 CBC w/ auto diff hematology comments: HEAVY TRUCK DRIVER Not Available [facility] ([facility]) [address] [place], [address], 12/29/2017 09:24:18 12/29/19 18 12/29/2017 BMP, serum or plasm a glucose 91 mg/dL 65-99 Not Available [facility] ([facility]) [address] [place], [address], 12/29/2017 09:24:18 12/29/19 18 12/29/2017 BMP, serum or plasm a BUN 9 mg/dL 6-20 Not Available [facility] ([facility]) [address] [place], [address], 12/29/2017 09:24:18 12/29/19 18 12/29/2017 BMP, serum or plasm a creatinine 0.96 mg/dL 0.57-1 .00 Not Available [facility] ([facility]) [address] [place], [address], 12/29/2017 09:24:18 12/29/19 18 12/29/2017 BMP, serum or plasm a eGFR if nonafricn AM 76 mL/mi n/1.7 3 >59 Not Available [facility] ([facility]) [address] [place], [address], 12/29/2017 09:24:18 12/29/19 18 12/29/2017 BMP, serum or plasm a eGFR if africn AM 87 mL/mi n/1.7 3 >59 Not Available [facility] ([facility]) [address] [place], [address], 12/29/2017 09:24:18 12/29/19 18 12/29/2017 BMP, serum or plasm a BUN/creatini ne ratio 9 9-23 Not Available [facility] ([facility]) [address] [facility] [place], [address], 12/29/2017 09:24:18 12/29/19 18 12/29/2017 BMP, serum or plasm a sodium 142 mmol/ L 134-14 4 Not Available [facility] ([facility]) [address] [facility] [place], [address], 12/29/2017 09:24:18 12/29/19 18 12/29/2017 BMP, serum or plasm a potassium 4.2 mmol/ L 3.5-5. 2 Not Available [facility] ([facility]) [address] [facility] [place], [address], 12/29/2017 09:24:18 12/29/19 18 12/29/2017 BMP, serum or plasm a chloride 101 mmol/ L 96-106 Not Available [facility] ([place] [email or web address]) [address] [facility] [place], [address], 12/29/2017 09:24:18 12/29/19 18 12/29/2017 BMP, serum or plasm a carbon dioxide, total 26 mmol/ L 18-29 Not Available [facility] ([place] [email or web address]) [address] [facility] [place], [address], 12/29/2017 09:24:18 12/29/19 18 12/29/2017 BMP, serum or plasm a calcium 9.5 mg/dL 8.7-10 .2 Not Available [facility] ([facility]) [address] [facility] [place], [address], 12/29/2017 09:24:18 12/29/19 18 12/29/2017 lipid panel , serum cholesterol, total 154 mg/dL 100-19 9 Not Available [facility] ([facility]) [address] [facility], [place], [address], 12/29/2017 09:24:19 12/29/19 18 12/29/2017 lipid panel , serum triglyceride s 134 mg/dL 0-149 Not Available [facility] ([facility]) [address] [facility], [place], [address], 12/29/2017 09:24:19 12/29/19 18 12/29/2017 lipid panel , serum HDL cholesterol 61 mg/dL >39 Not Available [facility] ([facility]) [address] [facility], [place], [address], 12/29/2017 09:24:19 12/29/19 18 12/29/2017 lipid panel , serum VLDL cholesterol nori 27 mg/dL 5-40 Not Available [facility] ([facility]) [address] [facility], [place], [address], 12/29/2017 09:24:19 12/29/19 18 12/29/2017 lipid panel , serum LDL cholesterol calc 66 mg/dL 0-99 Not Available [facility] ([facility]) [address] [facility] [place], [address], 12/29/2017 09:24:19 12/29/19 18 12/29/2017 lipid panel , serum comment: HEAVY TRUCK DRIVER Not Available [facility] ([facility]) [address] [facility], [place], [address], 12/29/2017 09:24:19 12/29/19 18 12/29/2017 HbA1c (hemo globi n A1c), blood hemoglobin A1C 5.0 % 4.8-5. 6 Pre-d iabet es: 5.7 - 6.4 Diabe jennifer: >6.4 Glyce torres contr ol for adult s with diabe jennifer: <7.0 Not Available [facility] ([facility]) [address] [facility], [place], [address], 12/29/2017 09:24:20 12/29/19 18 12/29/2017 HbA1c (hemo globi n A1c), blood estim. avg glu (EAG) 97 mg/dL Not Available [facility] ([facility]) [address] [facility], [place], [address], 12/29/2017 09:24:20 12/29/19 18 12/29/2017 cardi ovasc ular asses sment panel , serum interpretati on Note Suppl emlonny al grover t is avail able. Not Available [facility] ([facility]) [address] [facility], [place], [address], 12/29/2017 09:24:20 12/29/19 18 12/29/2017 cardi ovasc ular asses sment panel , serum pdf image . Not Available [facility] ([facility]) [address] [facility], [place], [address], 12/29/2017 09:24:20 10/08/19 21 10/08/2020 lipid panel , serum cholesterol, total 156 mg/dL <200 normal Not Available [facility] [address] [place], [address], 10/08/2020 10:36:58 10/08/19 21 10/08/2020 lipid panel , serum HDL cholesterol 44 mg/dL > or = 50 low Not Available [facility] [address] [place], [address], 10/08/2020 10:36:58 10/08/19 21 10/08/2020 lipid panel , serum triglyceride s 62 mg/dL <150 normal Not Available [facility] [address] [place], [address], 10/08/2020 10:36:58 10/08/19 21 10/08/2020 lipid panel , serum LDL-choleste rol 98 mg/dL _(nori c) normal Refer ence range : <100 Tito able range <100 mg/dL for prima ry preve ntion ; <70 mg/dL for patie nts with CHD or diabe tic patie nts with > or = 2 CHD risk facto rs. LDL-C is now calcu lated using the Karla n-Hop kins sherrieu anshul n, which is a valid ated novel hellen colon than the Fried florencio equat ion in the estim ation of LDL-C . Karla urbina SS et al. ERICK. 2013; 310(1 9): 2061- 2068 (http ://ed ucati on.TeensSuccess kristianBetterYou. com/f aq/FA Q164) Not Available [facility] [address], [place], [address], 10/08/2020 10:36:58 10/08/19 21 10/08/2020 lipid panel , serum chol/HDLC ratio 3.5 (calc ) <5.0 normal Not Available [facility] [address] [place], [address], 10/08/2020 10:36:58 10/08/19 21 10/08/2020 lipid panel , serum non HDL cholesterol 112 mg/dL _(nori c) <130 normal For patie nts with diabe jennifer plus 1 major ASCVD risk facto r, treat ing to a non-H DL-C goal of <100 mg/dL (LDL- C of <70 mg/dL ) is edisoni chiquisd a saba pavon optio n. Not Available [facility] [address] [place], [address], 10/08/2020 10:36:58 10/08/19 21 10/08/2020 lipid panel , serum copy(ies) sent to: DR FEDERICO CRAMER [address] [place] [address] Not Available [facility] [address] [place], [address], 10/08/2020 10:36:58 10/08/19 21 10/08/2020 HIV 1+2 Ab + HIV1 p24 Ag, quant itati ve immun oassa y, serum HIV Ag/Ab, 4TH gen NON-RE ACTIVE non-re active normal HIV-1 antig en and HIV-1 /HIV- 2 antib odies were not detec deyanira. There is no labor atory evide nce of HIV infec tion. PLEAS E NOTE: This infor matio n has been discl osed to you from recor ds whose confi denti ality may be prote cted by state law. If your state requi res such prote ction , then the state law prohi bits you from tania cabrera er discl osure of the infor matio n witho ut the speci fic writt en conse nt of the perso n to whom it perta ins, or as other johns permi tted by law. A gener al autho juan a ion for the relea se of medic al or other infor matio n is NOT suffi cient for this purpo se. For addit ional infor matio n pleas e refer to http: //[facility] mario torrez stdia gnost ics.c om/fa q/FAQ 106 (This link is being provi ded for infor matio nal/ educa brigette l purpo ses only. ) The perfo rmanc e of this assay has not been clini brannon valid ated in patie nts less than 2 years old. Not Available [facility] [address], [place], [address], 10/08/2020 10:36:59 10/08/19 21 10/08/2020 HIV 1+2 Ab + HIV1 p24 Ag, quant itati ve immun oassa y, serum copy(ies) sent to: DR FEDERICO CRAMER [address] [place] [address] Not Available [facility] [address], [address], 10/08/2020 10:36:59 10/08/19 21 10/08/2020 CMP, serum or plasm a glucose 72 mg/dL 65-139 normal Non-f astin g refer ence inter rogers Not Available [address], [address], 10/08/2020 10:36:59 10/08/19 21 10/08/2020 CMP, serum or plasm a urea nitrogen (BUN) 9 mg/dL 7-25 normal Not Available [facility] [address], [address], 10/08/2020 10:36:59 10/08/19 21 10/08/2020 CMP, serum or plasm a creatinine 0.76 mg/dL 0.50-1 .10 normal Not Available [facility] [address], [address], 10/08/2020 10:36:59 10/08/19 21 10/08/2020 CMP, serum or plasm a eGFR non-afr. tristanian 98 mL/mi n/1.7 3m2 > or = 60 normal Not Available [facility] [address] [address] [place], [address], 10/08/2020 10:36:59 10/08/19 21 10/08/2020 CMP, serum or plasm a eGFR 114 mL/mi n/1.7 3m2 > or = 60 normal Not Available [facility] [address], [address], 10/08/2020 10:36:59 10/08/19 21 10/08/2020 CMP, serum or plasm a BUN/creatini ne ratio NOT APPLIC ABLE (calc ) 6-22 Not Available [facility], [address], 10/08/2020 10:36:59 10/08/19 21 10/08/2020 CMP, serum or plasm a sodium 142 mmol/ L 135-14 6 normal Not Available [address], [address], 10/08/2020 10:36:59 10/08/19 21 10/08/2020 CMP, serum or plasm a potassium 3.7 mmol/ L 3.5-5. 3 normal Not Available [address], [address], 10/08/2020 10:36:59 10/08/19 21 10/08/2020 CMP, serum or plasm a chloride 107 mmol/ L 98-110 normal Not Available [address], [address], 10/08/2020 10:36:59 10/08/19 21 10/08/2020 CMP, serum or plasm a carbon dioxide 26 mmol/ L 20-32 normal Not Available [address], [address], 10/08/2020 10:36:59 10/08/19 21 10/08/2020 CMP, serum or plasm a calcium 8.6 mg/dL 8.6-10 .2 normal Not Available [address], [address], 10/08/2020 10:36:59 10/08/19 21 10/08/2020 CMP, serum or plasm a protein, total 6.5 g/dL 6.1-8. 1 normal Not Available [address], [address], 10/08/2020 10:36:59 10/08/19 21 10/08/2020 CMP, serum or plasm a albumin 3.8 g/dL 3.6-5. 1 normal Not Available [address] [address] [place], [address], 10/08/2020 10:36:59 10/08/1910/08/2020 CMP, serum or plasm a globulin 2.7 g/dL_ (calc ) 1.9-3. 7 normal Not Available [address], [address], 10/08/2020 10:36:59 10/08/19 21 10/08/2020 CMP, serum or plasm a albumin/glob ulin ratio 1.4 (calc ) 1.0-2. 5 normal Not Available [address], [address], 10/08/2020 10:36:59 10/08/1910/08/2020 CMP, serum or plasm a bilirubin, total 0.4 mg/dL 0.2-1. 2 normal Not Available [address], [address], 10/08/2020 10:36:59 10/08/1910/08/2020 CMP, serum or plasm a alkaline phosphatase 77 U/L 31-125 normal Not Available [facility] [address] [address] [place], [address], 10/08/2020 10:36:59 10/08/1910/08/2020 CMP, serum or plasm a AST 17 U/L 10-30 normal Not Available [address] [address] [place], [address], 10/08/2020 10:36:59 10/08/1910/08/2020 CMP, serum or plasm a ALT 17 U/L 6-29 normal Not Available [facility] [address] [address] [place], [address], 10/08/2020 10:36:59 10/08/1910/08/2020 CMP, serum or plasm a copy(ies) sent to: DR FEDERICO CRAMER [address] [place] [address] Not Available [address], [address], 10/08/2020 10:36:59 10/08/19 21 10/08/2020 urina lysis , compl ete color YELLOW yellow normal Not Available [address], [address], 10/08/2020 10:37:00 10/08/19 21 10/08/2020 urina lysis , compl ete appearance CLEAR clear normal Not Available [address], [address], 10/08/2020 10:37:00 10/08/19 21 10/08/2020 urina lysis , compl ete specific gravity 1.023 1.001- 1.035 normal Not Available [address], [address], 10/08/2020 10:37:00 10/08/19 21 10/08/2020 urina lysis , compl ete pH 6.0 5.0-8. 0 normal Not Available [address], [address], 10/08/2020 10:37:00 10/08/19 21 10/08/2020 urina lysis , compl ete glucose NEGATI VE negati ve normal Not Available [address], [address], 10/08/2020 10:37:00 10/08/19 21 10/08/2020 urina lysis , compl ete bilirubin NEGATI VE negati ve normal Not Available [facility] [address], [address], 10/08/2020 10:37:00 10/08/19 21 10/08/2020 urina lysis , compl ete ketones 3+ negati ve abnormal Not Available [address], [address], 10/08/2020 10:37:00 10/08/19 21 10/08/2020 urina lysis , compl ete occult blood TRACE negati ve abnormal Not Available [address], [address], 10/08/2020 10:37:00 10/08/19 21 10/08/2020 urina lysis , compl ete protein NEGATI VE negati ve normal Not Available [address], [address], 10/08/2020 10:37:00 10/08/19 21 10/08/2020 urina lysis , compl ete nitrite NEGATI VE negati ve normal Not Available [address], [address], 10/08/2020 10:37:00 10/08/19 21 10/08/2020 urina lysis , compl ete leukocyte esterase NEGATI VE negati ve normal Not Available [address], [address], 10/08/2020 10:37:00 10/08/19 21 10/08/2020 urina lysis , compl ete WBC NONE SEEN /hpf < or = 5 normal Not Available [address], [address], 10/08/2020 10:37:00 10/08/19 21 10/08/2020 urina lysis , compl ete RBC 0-2 /hpf < or = 2 normal Not Available [address], [address], 10/08/2020 10:37:00 10/08/19 21 10/08/2020 urina lysis , compl ete squamous epithelial cells 0-5 /hpf < or = 5 Not Available [facility] [address] [address] [place], [address], 10/08/2020 10:37:00 10/08/19 21 10/08/2020 urina lysis , compl ete bacteria NONE SEEN /hpf none seen normal Not Available [facility] [address] [address] [place], [address], 10/08/2020 10:37:00 10/08/19 21 10/08/2020 urina lysis , compl ete hyaline cast NONE SEEN /lpf none seen normal Not Available [facility] [address] [address] [place], [address], 10/08/2020 10:37:00 10/08/19 21 10/08/2020 urina lysis , compl ete copy(ies) sent to: DR FEDERICO CRAMER [address] [place] [address] Not Available [facility] [address] [address] [place], [address], 10/08/2020 10:37:00 10/08/1910/08/2020 HbA1c (hemo globi n A1c), blood hemoglobin A1C 4.7 %_of_ total _HGB <5.7 normal For the purpo se of troy perez for the prese nce of diabe jennifer: <5.7% Consi stent with the absen ce of diabe jennifer 5.7-6 .4% Consi stent with incre ased risk for diabe jennifer (pred iabet es) > or =6.5% Consi stent with diabe jennifer This assay resul t is consi stent with a decre ased risk of diabe jennifer. Curre ntly, no conse nsus exist s angela mendoza use of hemog lobin A1c for diagn osis of diabe jennifer in child timoteo. Accor ding to Ameri can Diabe jennifer Assoc iatio n (ADA) guide lines , hemog lobin A1c <7.0% repre sents optim al contr ol in non-p regna nt diabe tic patie nts. Diffe rent metri cs may apply to speci fic patie nt popul ation s. [facility] Medic al [facility] in Diabe jennifer(A DA). Not Available [address] [address] [place], [address], 10/08/2020 10:37:01 10/08/19 21 10/08/2020 HbA1c (hemo globi n A1c), blood copy(ies) sent to: DR FEDERICO CRAMER [address] [place] [address] Not Available [facility] [address] [address] [place], [address], 10/08/2020 10:37:01 10/08/19 21 10/08/2020 iron + TIBC + leticia tin, serum iron, total 37 mcg/d L 40-190 low Not Available [employer] [address] [address] [place], [address], 10/08/2020 14:59:44 10/08/19 21 10/08/2020 iron + TIBC + leticia tin, serum iron binding capacity 336 mcg/d L_(ca lc) 250-45 0 normal Not Available [address] [address] [place], [address], 10/08/2020 14:59:44 10/08/19 21 10/08/2020 iron + TIBC + leticia tin, serum % saturation 11 %_(ca lc) 16-45 low Not Available [employer] [facility] [address] [address] [place], [address], 10/08/2020 14:59:44 10/08/19 21 10/08/2020 iron + TIBC + leticia tin, serum ferritin 67 NG/mL 16-154 normal Not Available [employer] [address] [address] [place], [address], 10/08/2020 14:59:44 10/08/19 21 10/08/2020 iron + TIBC + leticia tin, serum copy received from: DR FEDERICO CRAMER [address] [place] [address] Not Available [address], [address], 10/08/2020 14:59:44 10/08/19 21 10/08/2020 CMP, serum or plasm a glucose 70 mg/dL 65-99 normal Fasti ng refer ence inter rogers Not Available [address], [address], 10/08/2020 14:59:45 10/08/19 21 10/08/2020 CMP, serum or plasm a urea nitrogen (BUN) 9 mg/dL 7-25 normal Not Available [address], [address], 10/08/2020 14:59:45 10/08/19 21 10/08/2020 CMP, serum or plasm a creatinine 0.76 mg/dL 0.50-1 .10 normal Not Available [address], [address], 10/08/2020 14:59:45 10/08/19 21 10/08/2020 CMP, serum or plasm a eGFR non-afr. tristanian 98 mL/mi n/1.7 3m2 > or = 60 normal Not Available [address] [address] [place], [address], 10/08/2020 14:59:45 10/08/19 21 10/08/2020 CMP, serum or plasm a eGFR 114 mL/mi n/1.7 3m2 > or = 60 normal Not Available [address], [address], 10/08/2020 14:59:45 10/08/19 21 10/08/2020 CMP, serum or plasm a BUN/creatini ne ratio NOT APPLIC ABLE (calc ) 6-22 Not Available [address], [address], 10/08/2020 14:59:45 10/08/19 21 10/08/2020 CMP, serum or plasm a sodium 140 mmol/ L 135-14 6 normal Not Available [address], [address], 10/08/2020 14:59:45 10/08/19 21 10/08/2020 CMP, serum or plasm a potassium 3.7 mmol/ L 3.5-5. 3 normal Not Available [address], [address], 10/08/2020 14:59:45 10/08/19 21 10/08/2020 CMP, serum or plasm a chloride 106 mmol/ L 98-110 normal Not Available [address], [address], 10/08/2020 14:59:45 10/08/19 21 10/08/2020 CMP, serum or plasm a carbon dioxide 25 mmol/ L 20-32 normal Not Available [address], [address], 10/08/2020 14:59:45 10/08/19 21 10/08/2020 CMP, serum or plasm a calcium 8.9 mg/dL 8.6-10 .2 normal Not Available [address], [address], 10/08/2020 14:59:45 10/08/19 21 10/08/2020 CMP, serum or plasm a protein, total 6.7 g/dL 6.1-8. 1 normal Not Available [address], [address], 10/08/2020 14:59:45 10/08/19 21 10/08/2020 CMP, serum or plasm a albumin 3.9 g/dL 3.6-5. 1 normal Not Available [address] [address] [place], [address], 10/08/2020 14:59:45 10/08/1910/08/2020 CMP, serum or plasm a globulin 2.8 g/dL_ (calc ) 1.9-3. 7 normal Not Available [address] [address] [place], [address], 10/08/2020 14:59:45 10/08/1910/08/2020 CMP, serum or plasm a albumin/glob ulin ratio 1.4 (calc ) 1.0-2. 5 normal Not Available [address] [address] [place], [address], 10/08/2020 14:59:45 10/08/1910/08/2020 CMP, serum or plasm a bilirubin, total 0.4 mg/dL 0.2-1. 2 normal Not Available [address] [address] [place], [address], 10/08/2020 14:59:45 10/08/1910/08/2020 CMP, serum or plasm a alkaline phosphatase 80 U/L 31-125 normal Not Available [facility] [employer] [address] [address] [place], [address], 10/08/2020 14:59:45 10/08/1910/08/2020 CMP, serum or plasm a AST 17 U/L 10-30 normal Not Available [address] [address] [place], [address], 10/08/2020 14:59:45 10/08/1910/08/2020 CMP, serum or plasm a ALT 17 U/L 6-29 normal Not Available [employer] [facility] [address] [address] [place], [address], 10/08/2020 14:59:45 10/08/19 21 10/08/2020 CMP, serum or plasm a copy received from: DR FEDERICO CRAMER [address] [place] [address] Not Available [address], [address], 10/08/2020 14:59:45 10/08/1910/08/2020 CBC w/ auto diff white blood cell count 9.2 thous and/u L 3.8-10 .8 normal Not Available [address], [address], 10/08/2020 14:59:45 10/08/19 21 10/08/2020 CBC w/ auto diff red blood cell count 3.84 dionna on/uL 3.80-5 .10 normal Not Available [address], [address], 10/08/2020 14:59:45 10/08/19 21 10/08/2020 CBC w/ auto diff hemoglobin 10.7 g/dL 11.7-1 5.5 low Not Available [address], [address], 10/08/2020 14:59:45 10/08/1910/08/2020 CBC w/ auto diff hematocrit 33.4 % 35.0-4 5.0 low Not Available [address], [address], 10/08/2020 14:59:45 10/08/19 21 10/08/2020 CBC w/ auto diff MCV 87.0 fL 80.0-1 00.0 normal Not Available [address], [address], 10/08/2020 14:59:45 10/08/19 21 10/08/2020 CBC w/ auto diff MCH 27.9 pg 27.0-3 3.0 normal Not Available [address], [address], 10/08/2020 14:59:45 10/08/19 21 10/08/2020 CBC w/ auto diff MCHC 32.0 g/dL 32.0-3 6.0 normal Not Available [address], [address], 10/08/2020 14:59:45 10/08/19 21 10/08/2020 CBC w/ auto diff RDW 13.8 % 11.0-1 5.0 normal Not Available [address], [address], 10/08/2020 14:59:45 10/08/19 21 10/08/2020 CBC w/ auto diff platelet count 297 thous and/u L 140-40 0 normal Not Available [address], [address], 10/08/2020 14:59:45 10/08/19 21 10/08/2020 CBC w/ auto diff MPV 10.9 fL 7.5-12 .5 normal Not Available [address], [address], 10/08/2020 14:59:45 10/08/19 21 10/08/2020 CBC w/ auto diff absolute neutrophils 5778 cells /uL 1500-7 800 normal Not Available [address], [address], 10/08/2020 14:59:45 10/08/19 21 10/08/2020 CBC w/ auto diff absolute lymphocytes 2622 cells /uL 850-39 00 normal Not Available [address], [address], 10/08/2020 14:59:45 10/08/19 21 10/08/2020 CBC w/ auto diff absolute monocytes 552 cells /uL 200-95 0 normal Not Available [address], [address], 10/08/2020 14:59:45 10/08/19 21 10/08/2020 CBC w/ auto diff absolute eosinophils 221 cells /uL 15-500 normal Not Available [address], [address], 10/08/2020 14:59:45 10/08/19 21 10/08/2020 CBC w/ auto diff absolute basophils 28 cells /uL 0-200 normal Not Available [address], [address], 10/08/2020 14:59:45 10/08/19 21 10/08/2020 CBC w/ auto diff neutrophils 62.8 % normal Not Available [address], [address], 10/08/2020 14:59:45 10/08/19 21 10/08/2020 CBC w/ auto diff lymphocytes 28.5 % normal Not Available [address], [address], 10/08/2020 14:59:45 10/08/19 21 10/08/2020 CBC w/ auto diff monocytes 6.0 % normal Not Available [address], [address], 10/08/2020 14:59:45 10/08/19 21 10/08/2020 CBC w/ auto diff eosinophils 2.4 % normal Not Available [address], [address], 10/08/2020 14:59:45 10/08/19 21 10/08/2020 CBC w/ auto diff basophils 0.3 % normal Not Available [address], [address], 10/08/2020 14:59:45 10/08/19 21 10/08/2020 CBC w/ auto diff copy received from: DR FEDERICO CRAMER [address] [place] [address] [address] [place] [address] Not Available [address], [address], 10/08/2020 14:59:45 10/08/19 21 10/08/2020 thyro id perox idase (tpo) Ab, serum thyroid peroxidase antibodies 6 IU/mL <9 normal Not Available [address], [address], 10/08/2020 14:59:46 10/08/19 21 10/08/2020 thyro id perox idase (tpo) Ab, serum copy received from: DR FEDERICO CRAMER [address] [place] [address] [address] [place] [address] Not Available [address], [address], 10/08/2020 14:59:46 10/08/19 21 10/08/2020 T4, free, serum T4, free 1.5 NG/dL 0.8-1. 8 normal Not Available [address] [address] [place], [address], 10/08/2020 14:59:47 10/08/19 21 10/08/2020 T4, free, serum copy received from: DR FEDERICO CRAMER [address] [place] [address] [address] [place] [address] Not Available [address], [address], 10/08/2020 14:59:47 10/08/19 21 10/08/2020 TSH, serum or plasm a TSH 0.01 mIU/L low Refer ence Range > or = 20 Years 0.40- 4.50 Pregn kwabena Range s First trime ster 0.26- 2.66 Secon d trime ster 0.55- 2.73 Third trime ster 0.43- 2.91 Not Available [address] [address] [place], [address], 10/08/2020 14:59:47 10/08/19 21 10/08/2020 TSH, serum or plasm a copy received from: DR FEDERICO CRAMER [address] [place] [address] Not Available [facility] [address] [address] [place], [address], 10/08/2020 14:59:47 10/08/1910/08/2020 vitam in B12 + folat e, serum or blood vitamin B12 1200 pg/mL 200-11 00 high Not Available [address] [address] [place], [address], 10/08/2020 14:59:48 10/08/1910/08/2020 vitam in B12 + folat e, serum or blood folate, serum 7.4 NG/mL normal Refer ence Range Low: <3.4 Borde rline : 3.4-5 .4 Amy l: >5.4 Not Available [address] [address] [place], [address], 10/08/2020 14:59:48 10/08/1910/08/2020 vitam in B12 + folat e, serum or blood copy received from: DR FEDERICO CRAMER [address] [place] [address] Not Available [employer] [facility] [address] [address] [place], [address], 10/08/2020 14:59:48 10/08/1910/08/2020 T3, free, serum or plasm a T3, free 2.9 pg/mL 2.3-4. 2 normal Not Available [employer] [facility] [address] [address] [place], [address], 10/08/2020 14:59:48 10/08/19 21 10/08/2020 T3, free, serum or plasm a copy received from: DR FEDERICO CRAMER [address] [place] [address] Not Available [facility] [address] [address] , [place], [address], 10/08/2020 14:59:48 10/04/19 21 08/13/2020 CT, abdom en + pelvi s, w/ contr ast No observ ation record ed. [facility] - Op [address], [place], [address], 11/18/2020 13:04:07 10/18/19 21 10/17/2020 biops y, breas t, w/ ultra sound sammi nce (PROC ) No observ ation record ed. [facility] (Imaging) [address], [place], [address], 11/18/2020 13:04:07 10/19/19 21 10/18/2020 US, axill a No observ ation record ed. [facility], [place], [address], 11/18/2020 13:04:06 10/19/19 21 10/18/2020 US, unlis deyanira No observ ation record ed. [facility] [address] [facility], [place], [address], 11/18/2020 13:04:06 10/19/19 21 10/18/2020 US, unlis deyanira No observ ation record ed. [facility] [address] [facility], [place], [address], 11/18/2020 13:04:05 10/19/19 21 10/18/2020 US, axill a No observ ation record ed. [facility] [place] [address] [facility], [place], [address], 11/18/2020 13:04:06 10/19/19 21 10/18/2020 US, unlis deyanira No observ ation record ed. [facility] [address] [facility], [place], [address], 11/18/2020 13:04:06 10/19/19 21 10/18/2020 US, axill a No observ ation record ed. [facility] Radiology [address] [facility], [place], [address], 11/18/2020 13:04:06 10/25/19 21 10/17/2020 US, patito t No observ ation record ed. [address], [place], [address], 11/18/2020 13:04:06 11/02/19 21 10/17/2020 US, patito forrester No observ ation record ed. [address], [place], [address], 11/18/2020 13:04:06 Result Notes None recorded. Problems Name Problem SNOMED Code Status Onset Date Resolution Date Notes Provider Name and Address Organization Details Recorded Time Mass of axilla 570964842 Active 2020 Chas Hoyos MD Attn: Demetrius g,[address] [facility], [place], [address], [place] - [place] 15:20:41 History of cholecystectom y 950940663 Active 2020 Chas Hoyos MD Attn: Demetrius g,[address] [facility], [place], [address], [place] 15:56:24 Body mass index 30+ - obesity 084897463 Active 2020 JYOTI ALAN NP [address], [place], [address], [facility] - SIF 16:54:59 Hypothyroidism 93255785 Active 2020 JYOTI ALAN NP [address], [place], [address], [facility] - SIF 16:55:08 Mixed anxiety and depressive disorder 853614715 Active 2020 JYOTI ALAN NP [address], [place], [address], [facility] - SI 16:55:23 Body mass index 40+ - severely obese 691705952 Active 2020 JYOTI ALAN NP [address], [place], [address], [facility] - SI 11:45:50 Problem Notes None recorded. Procedures Surgical History Date Name Laterality Status Provider Name and Address Organization Details Recorded Time 08/28/19 Cholecystectomy completed Radha Wasserman [place] - [place] 10/04/2020 14:39:55 Imaging Results Imaging Date Name Status LastModified by Organiz ation Details LastModified Time 08/13/2020 CT, abdomen + pelvis, w/ contrast completed [facility] - Op [address] [facility], [place], [address], 11/18/2020 13:04:07 10/17/2020 biopsy, breast, w/ ultrasound guidance (PROC) completed [facility] (Imaging) [address], [place], [address], 11/18/2020 13:04:07 10/18/2020 US, axilla completed [facility] [place] [address] [facility] [address], [place], [address], 11/18/2020 13:04:06 10/18/2020 US, unlisted completed [address], [address], 11/18/2020 13:04:06 10/18/2020 US, unlisted completed [address], [address], 11/18/2020 13:04:05 10/18/2020 US, axilla completed [facility] [place], [address], 11/18/2020 13:04:06 10/18/2020 US, unlisted completed [address], [place], [address], 11/18/2020 13:04:06 10/18/2020 US, axilla completed [facility], [place], [address], 11/18/2020 13:04:06 10/17/2020 US, breast completed [address] [place] [address], [address], 11/18/2020 13:04:06 10/17/2020 US, breast completed [address], [address], 11/18/2020 13:04:06 Procedure Notes None recorded. Medical Equipment None Reported. Allergies No known drug allergies Medications Name Sig Start Date Stop Date Status Note LastModified by Organization Details LastModified Time quetiapine 25 mg tablet TK 1 T PO D PRN active Not Available Not Available No t Available levothyroxi ne 137 mcg tablet TAKE 1 TABLET BY MOUTH DAILY active Not Available Not Available No t Available hydrocodone 5 mg-acetamin ophen 325 mg tablet TAKE 1 TABLET BY MOUTH EVERY 4 HOURS NEEDED FOR PAIN 10/04 completed Not Available Not Available Not Available famotidine 40 mg tablet TAKE 1 TABLET BY MOUTH AT BEDTIME 10/04 completed Not Available Not Available Not Available phentermine 15 mg capsule TAKE ONE CAPSULE BY MOUTH TWICE DAILY active Not Available Not Available No t Available levothyroxi ne 25 mcg tablet 02/28 completed Not Available Not Available Not Available levothyroxi ne 75 mcg tablet 10/04 completed Not Available Not Available Not Available levothyroxi ne 100 mcg tablet TK 1 T PO QD IN THE MORNING 10/04 completed Not Available Not Available Not Available levothyroxi ne 88 mcg tablet TK 1 T PO QD IN THE MORNING 10/04 completed Not Available Not Available Not Available dexamethaso ne 1 mg tablet 02/28 completed Not Available Not Available Not Available meclizine 25 mg tablet Take 1 tablet 3 times a day by oral route as needed. 02/28 completed Not Available Not Available Not Available levothyroxi ne 50 mcg tablet 02/28 completed Not Available Not Available Not Available levothyroxi ne 125 mcg tablet TAKE 1 TABLET BY MOUTH EVERY OTHER DAY IN THE MORNING active Not Available Not Available No t Available ergocalcife rol (vitamin D2) 1,250 mcg (50,000 unit) capsule TK 1 C PO WEEKLY WITH MEAL 10/04 completed Not Available Not Available Not Available ondansetron 4 mg disintegrat ing tablet DISSLOVE 1 TABLET BY MOUTH EVERY 6 HOURS NEEDED 10/04 completed Not Available Not Available Not Available metformin ER 500 mg tablet,exte nded release 24 hr TK 1 T PO BID B MEALS 10/04 completed Not Available Not Available Not Available naproxen 500 mg tablet TAKE 1 TABLET BY MOUTH TWICE DAILY NEEDED active Not Available Not Available No t Available etonogestre l 0.12 mg-ethinyl estradiol 0.015 mg/24 hr vaginal ring INSERT 1 RING VAGINALLY Q MONTH UTD 10/04 completed Not Available Not Available Not Available bupropion HCl XL 150 mg 24 hr tablet, extended release TK 1 T PO QD active Not Available Not Available No t Available diclofenac 1 % topical gel 10/04 completed Not Available Not Available Not Available Vitals Date Recorded Body height Body mass index (BMI) Body weight Body temperature Heart rate Oxygen saturation Oxygen saturation in Arterial blood by Pulse oximetry Systolic blood pressure Diastolic blood pressure Provider Name and Address Organization Details Last Updated DateTime 8 162.56 cm 52.6 kg/m2 411256. 67 g 98.9 [degF] 89 /min 99 % 99 % 110 mm[Hg] 82 mm[Hg] Albina Gonzalez [facility] 8 11:18:22 Date Recorded Body height Body mass index (BMI) Body weight Heart rate Oxygen saturation Oxygen saturation in Arterial blood by Pulse oximetry Body temperature Respiratory rate Systolic blood pressure Diastolic blood pressure Provider Name and Address Organization Details Last Updated DateTime 8 162.56 cm 52.6 kg/m2 568610. 07 g 78 /min 99 % 99 % 99 [degF] 16 /min 130 mm[Hg] 90 mm[Hg] Emil Alfaro CMA [facility] SI 8 14:35:38 Date Recorded Body height Body mass index (BMI) Body weight Heart rate Oxygen saturation Oxygen saturation in Arterial blood by Pulse oximetry Respiratory rate Body temperature Systolic blood pressure Diastolic blood pressure Provider Name and Address Organization Details Last Updated DateTime 1 162.56 cm 49.8 kg/m2 880087. 79 g 84 /min 98 % 98 % 16 /min 98 [degF] 130 mm[Hg] 84 mm[Hg] Radha Wasserman MA [facility] 1 14:50:42 Date Recorded Body height Provider Name an d Address Organization Details Last Updated DateTime 11/18/2020 162.56 cm Radha Wasserman MA [facility] SI 021 12:32:19 Social History Question Answer Notes LastModified by Organizat ion Details LastModified Time Tobacco Smoking Status Former Smoker Not Available [employer] 06/11/2020 03:43:25 What Is Your Level Of Alcohol Consumption? Occasional Information not available 10/04/2020 Are You Blind Or Do You Have Difficulty Seeing? No Information not available 10/04/2020 What Is Your Level Of Caffeine Consumption? None Information not available 10/04/2020 Have You Been To An Area Known To Be High Risk For COVID-19? No Information not available 10/04/2020 Are You Currently Employed? No Information not available 10/04/2020 Are You Deaf Or Do You Have Serious Difficulty Hearing? No Information not available 10/04/2020 What Type Of Diet Are You Following? REGULAR Keto Diet Information not available 10/04/2020 Are There Any Guns Present In Your Home? No Information not available 10/04/2020 What Was The Date Of Your Most Recent Tobacco Screening? 11/18/2020 Information not available 11/18/2020 What Is Your Relationship Status? Single Information not available 10/04/2020 Do You Use Your Seat Belt Or Car Seat Routinely? Yes Information not available 10/04/2020 Do You Have Smoke And Carbon Monoxide Detectors In Your Home? Yes Information not available 10/04/2020 Do You Use Any Illicit Or Recreational Drugs? Yes Information not available 10/04/2020 Do You Use Sunscreen Routinely? No Information not available 10/04/2020 Sex: Unknown Functional Status Question Answer Note LastModified by Organizat ion Details LastModified Time Are you able to care for yourself? Yes Information not available 10/04/2020 What is your exercise level? Occasional Information not available 10/04/2020 Mental Status None recorded. Family History Nothing Reported. Medical History Condition Response Coronary Artery Disease N Other N High Blood Pressure N Atrial Fibrillation N Thyroid Problems Y Kidney or Bladder Problems N GI Problems N Depression Y COPD N Blood Clots N Skin Problems N Anemia N Heart Attack (RI) N Anxiety Disorder Y Diabetes N Muscle, Joint, or Bone Problems N Seizures/Epilepsy N Acid Reflux (GERD) N Cancer N Stroke N Asthma N Allergies N High Cholesterol N Hepatitis N Liver Disease N Headaches N Osteoporosis N Heart Failure N Gynecological History Statement/Question Response Current Control Method None Date of LMP 10/01/2020 Obstetrics History GPAL:G 0 P 0 0 0 0 Past Encounters Encounter ID Performer Location Encounter Start Date Encounter Closed Date Diagnosis/Indication Diagnosis SNOMED-CT Code Diagnosis ICD10 Code Diagnosis Note [id number] Aleja Lanids MD [facility] [address] [address] 12/28/2017 14:55:09 12/31/2017 09:57:01 Vertigo 392886721 R42 Likely BPVIn ED, orthostati cs and urine test negativePa tient reports hx of anemia, check CBCOn meclizine 25 mg PO (takes 3 tablets daily prn Hypothyroidism 39225649 E03.9 On synthroid 75 mcg PO dailycheck tsh/free t4 Adult heal th examination 124440958 Z00.00 Check bmp, lipid, a1c ---BMI 52Patient is consciousl y aware of her weight and is going to the gym 3-5 days /week Chronic anxiety 57745001 9 F41.9 On wellbutrin ER 150 mg PO daily and takes seroquel 25 mg (1-2 tablets daily)Summer ent states she takes wellbutrin for her anxiety and seroquel to help her sleep at night. History of endometriosis 3156240884 8052498 Z87.42 Takes naproxen prnSees Shelby rosa [id number] Guzman Delgado MD [place] [address] [address] [facility] [address] [place] [address] 01/25/2018 11:12:21 01/26/2018 10:53:24 Swelling of hand 865394752 R22.30 - Recommend voltaren gel QID prn- D/w patient that cause is unknown, and this could be arthritic related, although she is young, however, she has known arthritis in her lower back- Advised to modify work routines if hand swelling does not improve Loss of hair 465158712 L 65.9 Advised to take biotin tabletsTSH /Free T4 (12/28/17) - wnl Morbid obesity 849764763 E66.01 BMI 52.6Gained 3 lbs in past month.Advi sed to exercise (mod intensity) 5 days wk for 30 minutesAdv ised to avoid sugary drinksAvoi d foods that are high in carbohydra tesDiscuss ed in length how she can obtain and maintain senior care weight loss vs. short term weight loss methodsF/u 1 month [id number] Radha Fong-MD Abby Felipe 3 [facility] [address] [place] [address] 02/28/2018 14:29:21 03/01/2018 13:12:56 Morbid obesity 463383314 E66.01 - Counselled on DASH diet, excercise and diet control to lose weight- Will refer to dietitian- Advised to take OTC multivitam in due to tiredness Hypothyroidism 91488619 E03.9 - Would like Endo to manage her hypothyroi d.- Currently on 75mcg synthroid daily. Takes on empty stomach-TS h 1.160 (12/2017) Vertigo [id number] R42 - Foster maneuver advised- Pt given youtube reference so she may follow along [id number] MD Kel Banda (Adult Med) [address] [place] [phone] 10/04/2020 14:27:55 10/04/2020 19:26:51 Adult health examination [id number] Z00.00 Body mass index 30+ - obesity 152138704 Z68.42 Hypothyroidism 96564663 E03.9 She follows up with Dr Cramer Mammography abnormal 168 398971 R92.8 She is following up with Dr Abernathy Mass of soft tissue 4449 [address] Mass of axilla 290486812 R22.2 Groin mass 776300500 R19 .00 Influenza vaccination declined 480860377 Z28.21 Tetanus va ccination declined by patient 120022723 Z28.21 Mixed anxi ety and depressive disorder 692056268 F41.8 On Bupropion and Seroquel History of cholecystectomy 658768082 Z90.49 [id number] MD Kel Banda (Adult Med) [address] [place] [phone] 11/18/2020 07:58:43 11/19/2020 07:45:16 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 Weight loss US report from GI Kidney stone 22595432 N2 0.0 Bilateral non obstructin g nephrolith iasis, noted on the CT scan of the A&P done 08/13/2020 Health Concerns Section Related Observation LastModified by Organization Detai ls LastModified Time None Recorded Concern Status LastModified by Organization Details LastModified Time None Recorded Advance Directives Directive None Recorded Payers Encounter Date Sequence Insurance Name Policy Number Policy Chanel Covered Member ID Chanel Member ID Guarantor Name 01/25/2018 1 [facility] (MEDICAID HMO) [id number] Lenier Brow[place] [id number] Lenier [place] 02/28/2018 1 [facility] (MEDICAID HMO) [id number] Lenier Tommy [id number] Lenier Tommy 10/04/2020 1 [facility] (MEDICAID HMO) [id number] 0003 Lenier [place] [id number] Lenier Tommy 11/18/2020 1 [facility] (MEDICAID HMO) [id number] 0003 Lenier Tommy [id number] Lenier Tommy Notes Date Note Type Note Provider Name and Address Organization Details Recorded Time 01/25/2018 text/html 37 y/o F here fo r f/u. Has multiple concerns regarding b/l hand swelling, unable to lose weight, anxiety about physical appearance (due to weight), and hair loss. B/l hand swelling has been going on for some time now. No pain in her joints, simply just swelling. Swelling is not there in the morning, but occurs as the day progresses. No erythema. 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 States that she has known arthritis in her low back. States that she is not happy with her physical appearance and every month she notices she is gaining weight. She has gained 3 lbs in the past month. She stopped exercising due to her low back pain and vertigo. States that she has been drinking sprite for the past 2 weeks. She states she otherwise doesn't eat fried foods, fast foods, or sugary drinks. States that she has been on a veggie/fruit diet, and detox diet in the past but she was not able to lose more than 20 pounds. Patient concerned about her hair. States that she had a receding hair line and hair thinning out before she was treated for hypothyroid, and after she was treated, hair thickness and growth never went back to normal. Guzman Delgado MD Attn: [address]ing[address] [facility], [place], [address], [facility] 01/27/2018 16:44:33 02/28/2018 text/html 37 y/o F present s for 1 month f/u of her weight and vertigo. Pt reports she started gaining weight about 2 years ago when she was diagnosed with hypothyroid. Her lowest weight was appx 165lbs.Her highest weight was appx 335lbs. She reports when she was working out she lost about 35 lbs but was unable to lose more weight. Reports her vertigo is better but has not gone away. Pt has not gone to the gym since being diagnosed with vertigo because she is afraid it will be triggered and she will have sx. She eats fruits and vegetables. Occasional fried and fast food. Drinks 5 12oz bottles of water daily.Reports bilateral swelling of her feet and hands occasionally but not swollen today Follows with ObGyn for routine insurance sales specialist care. No c/o headache, CP, SOB, NVCD, numbness or tingling. Radha Amato MD Attn: Accounting[address] [facility], [place], [address], [facility] 03/01/2018 12:19:42 10/04/2020 text/html I have some lumps, bulges under my arm pits, they are right here What about these fatty tumors on my hips? PCP [facility]. Hypothyroidism, LUISA/MDD and newly discovered bilateral breast masses., 40 y/o BF who presents to establish care, she complains of chronic masses in her forearms, axillae, hips and groin. They sometimes hurt. Chas Hoyos MD Attn: Accounting[address] [facility], [place], [address], [facility] 10/04/2020 15:56:38 11/18/2020 text/html Phone visit due to the Covid 19 pandemic Except for the swelling in my left leg and the lump in the hip. It be aching Since you don't know, can you refer me to a bilingual medical receptionist? Ms Sanders returns virtually, she continues to have intermittent pain in the areas of her body where she has soft tissue lesions. Chas Hoyos MD Attn: [address] [place], [address], [facility] 11/18/2020 13:25:45 OBGyn Episode No OBEpisode recorded.
== END 2024-09-30 09:20 | disposition home or self-care (01) ==
PROVIDERS: Visit Provider Nurse Practitioner
DX: Z12.31 Encounter for screening mammogram for malignant neoplasm of breast (principal)
CPT/HCPCS: 77063; 77067

== ENCOUNTER 2024-10-09 13:59 | Outpatient (CLI) | payer OTHER, SELFPAY | END 2024-10-09 14:00 | disposition home or self-care (01) | PROVIDERS: PCP Nurse Practitioner; Visit Provider Nurse Practitioner | DX: D25.9 Leiomyoma of uterus, unspecified (principal); N83.292 Other ovarian cyst, left side; N92.0 Excessive and frequent menstruation with regular cycle | CPT/HCPCS: 76830; 76856 ==

== ENCOUNTER 2024-10-30 00:45 | Day surgery (SDC) | payer OTHER, SELFPAY ==
[2024-10-16 14:28] VITALS: BMI 49.6
--- NOTE | 2024-10-16 14:53 | PC.NURSE ---
Report to the Outpatient Waiting Room, entrance under the green pavilion located off [facility], at time _0730 on date _10/30/2024 . Planned Procedure Time: .? Time changes happen often and if your time is changed the preop area will call you the afternoon before. - You and your visitor will be asked to self-screen and do not enter if you have any COVID symptoms. Please call surgeon if you need to reschedule. - A mask is optional within the hospital at this time. Patients may have clear liquids (water, carbonated beverages, clear teas, apple juice) until 3 hours prior to surgery with a maximum of 20 ounces. - No food from midnight until time of surgery and no smoking, or chewing tobacco (or any form of nicotine). No chewing gum, candy or mints. - Infants may have breast milk until 4 hours before surgery, formula 6 hours prior to surgery. - Children will be allowed to drink immediately following surgery.? If applicable, please bring a bottle or sippy cup to assist with drinking. Juice, water, soda, and popsicles are readily available.? For infants on formula, please bring formula the day of surgery.? Pacifiers are allowed. Take only the following medications with a SIP of water on the morning of surgery: __N/A DO NOT STOP ANY OF YOUR OTHER PRESCRIPTION MEDICATIONS PRIOR TO SURGERY EXCEPT THE FOLLOWING Hold all vitamins and supplements for 3 days per anesthesiologist. Medications to discontinue per physician ___Vitamins Date to take last dose__3 days prior Please no make-up, nail iraqi, hairspray, perfume, deodorant, or body powder the day of surgery.? No jewelry (including any body piercings) or valuables the day of surgery, leave them at home.? Please take a shower or bath the night before, or the morning of, surgery with an antibacterial soap.? Wear comfortable, loose fitting clothing.? Children are encouraged to wear pajamas. - Jewelry must be removed prior to entering the operating room.? Rings and piercings that are not removed may be cut off. - The hospital will not accept responsibility for valuables.? - Please leave all valuables, including medications, at home the day of surgery. If you are going home after surgery, a licensed carrier driver must drive you home.? - NO public transportation without another adult if you receive anesthesia. - We recommend that an adult stay with you for 24 hours following discharge. - We also recommend that you do not drive, make important decision, drink alcoholic beverages, or take any drugs that were not prescribed by your health care provider for at least 24 hours after your discharge time. For Pediatric surgeries, we recommend two adults accompany the child home. Follow any additional instructions given to you from your surgeon. Telephone instructions given to _Lenier and asked if any additional questions and then verbalized understanding. Patient advised to call surgeon office or pre surgery nurse liaison [phone] if any additional questions.
--- OUTSIDE RECORDS SUMMARY | 2024-10-30 00:48 | XMS_ITS | Clinical Summary ---
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
--- OUTSIDE RECORDS SUMMARY | 2024-10-30 00:48 | XMS_ITS | Data Portability ---
Author Organization [place] - [place] Gallo Address [address] [facility] [place] [address] Care Team Providers Care Cinder Crew Worker Name Role Phone RADHA MCCRAY Sample Carrier [phone] FEDERICO CRAMER Linux Kernel Engineer GISELA ABERNATHY General Surgeon Assessment No assessment recorded. Plan of Treatment Reminders Order Date Submit Date Provider Last Modified By Organization Details Last Modified Time Details Appointments None recorded. Lab CBC w/ auto diff 2020 [facility], [address], [place], [address], 14:59:45 CMP, serum or plasma 2020 [facility], [address], [place], [address], 10:37:00 lipid panel, serum 2020 [facility], [address], [place], [address], 10:36:58 urinalysis , complete 2020 [facility], [address], [place], [address], 10:37:00 HIV 1+2 AB + HIV 1 p24 Ag, qualitativ e immunoassa y, serum 2020 021 [facility], [address], [place], [address], 1 15:00:10 HbA1c (hemoglobi n A1c), blood 2020 021 [facility], [address], [place], [address], 1 10:37:01 Referral dermatolog ist referral - Multiple fat lobules 2020 021 [email or web address] Pedro Hauser, [address], [place], [address], 10:48:14 gastroente rologist referral - Hepatic steatosis 2020 021 [email or web address] Not available 11:10:[address]/dietiti an referral - BMI 52.6 2017 018 ATHENAFAX Not available 8 16:35:24 endocrinol ogy referral - 37 y/o F with hypothyroi d. Currently on 75mcg synthroid. Most recent TSh 1.16 (12/2017) Pt would like endo to manage hypothyroi d [address] Endocrinology , [facility] [place], [address], 8 18:16:54 Procedures None recorded. Surgeries None recorded. Imaging US, groin - Lipoma vs LN 2020 021 ATHENAFAX [facility], [address] [facility], [place], [address], 10:04:14 US, axilla - LN? 2020 021 [facility], [address] [facility], [place], [address], 15:49:02 US, unlisted 2020 021 SAMEER [facility], [address] [facility], [place], [address], 09:23:44 Medication Orders Voltaren 1 % topical gel [address] [id number], [address] [facility], [place], [place], [id number], 14:40:28 Patient TargetsNo targets recorded. Patient Instructions Encounter Date Encounter Id Patient Instructions Last Modified By Organization Details Last Modified Time 01/25/2018 [id number] I have reviewed the above record as preceptor for this encounter. I was available for consultation during this encounter. The case was NOT discussed with me [id number]. I agree with the assessment and plan for this encounter as described above. [email or web address] Not available 01/27/2018 16:44:30 02/28/2018 [id number] I was present and available in the family medicine clinic to discuss the patient's care during the appointment. I agree with the resident's assessment and plan as documented. 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 Currently on 75mcg synthroid. Most recent TSh 1.16 (12/2017) Pt would like endo to manage hypothyroid Referring Physician: [facility], Encounter Date: 02/28/2018 Spreader Referral for F atty dimpling of skin Multiple fat lobules Referring Physician: Chas Hoyos, Internal Medicine, Encounter Date: 11/18/2020 Cad Intern Referral for Steatosis of liver Hepatic steatosis Referring Physician: Chas Hoyos, Internal Medicine, Encounter Date: 11/18/2020 Results Created Date Observation Date Name Description Value Unit Range Abnormal Flag Note LastModifiedBy Organization Detail LastModifiedTime 12/29/19 18 12/29/2017 TSH + free T4, serum TSH 1.160 uIU/m L 0.450- 4.500 Not Available [facility] ([facility]) [address] [facility], [place], [address], 12/29/2017 09:24:17 12/29/19 18 12/29/2017 TSH + free T4, serum T4,free(dire ct) 1.17 NG/dL 0.82-1 .77 Not Available [facility] ([facility]) [address] [facility], [place], [address], 12/29/2017 09:24:17 12/29/19 18 12/29/2017 CBC w/ auto diff WBC 10.5 x10e3 /uL 3.4-10 .8 Not Available [facility] ([facility]) [address] [place], [address], 12/29/2017 09:24:18 12/29/19 18 12/29/2017 CBC w/ auto diff RBC 4.15 x10e6 /uL 3.77-5 .28 Not Available [facility] ([facility]) [address] [place], [address], 12/29/2017 09:24:18 12/29/19 18 12/29/2017 CBC w/ auto diff hemoglobin 12.3 g/dL 11.1-1 5.9 Not Available [facility] ([facility]) [address] [place], [address], 12/29/2017 09:24:18 12/29/19 18 12/29/2017 CBC w/ auto diff hematocrit 36.6 % 34.0-4 6.6 Not Available [facility] ([facility]) [address] [place], [address], 12/29/2017 09:24:18 12/29/19 18 12/29/2017 CBC w/ auto diff MCV 88 fL 79-97 Not Available [facility] ([facility]) [address] [place], [address], 12/29/2017 09:24:18 12/29/19 18 12/29/2017 CBC w/ auto diff MCH 29.6 pg 26.6-3 3.0 Not Available [facility] ([facility]) [address] [place], [address], 12/29/2017 09:24:18 12/29/19 18 12/29/2017 CBC w/ auto diff MCHC 33.6 g/dL 31.5-3 5.7 Not Available [facility] ([facility]) [address] [place], [address], 12/29/2017 09:24:18 12/29/19 18 12/29/2017 CBC w/ auto diff RDW 14.4 % 12.3-1 5.4 Not Available [facility] ([facility]) [address] [facility], [place], [address], 12/29/2017 09:24:18 12/29/19 18 12/29/2017 CBC w/ auto diff platelets 318 x10e3 /uL 150-37 9 Not Available [facility] ([facility]) [address] [facility], [place], [address], 12/29/2017 09:24:18 12/29/19 18 12/29/2017 CBC w/ auto diff neutrophils 58 % not estab. Not Available [facility] ([facility]) [address] [facility], [place], [address], 12/29/2017 09:24:18 12/29/19 18 12/29/2017 CBC w/ auto diff lymphs 34 % not estab. Not Available [facility] ([facility]) [address] [facility], [place], [address], 12/29/2017 09:24:18 12/29/19 18 12/29/2017 CBC w/ auto diff monocytes 6 % not estab. Not Available [facility] ([facility]) [address] [facility], [place], [address], 12/29/2017 09:24:18 12/29/19 18 12/29/2017 CBC w/ auto diff eos 2 % not estab. Not Available [facility] ([facility]) [address] [facility], [place], [address], 12/29/2017 09:24:18 12/29/19 18 12/29/2017 CBC w/ auto diff basos 0 % not estab. Not Available [facility] ([facility]) [address] [facility], [place], [address], 12/29/2017 09:24:18 12/29/19 18 12/29/2017 CBC w/ auto diff immature cells OVERLOCK SLEEVE SETTER Not Available [facility] ([facility]) [address] [place], [address], 12/29/2017 09:24:18 12/29/19 18 12/29/2017 CBC w/ auto diff neutrophils (absolute) 6.0 x10e3 /uL 1.4-7. 0 Not Available [facility] ([facility]) [address] [place], [address], 12/29/2017 09:24:18 12/29/19 18 12/29/2017 CBC w/ auto diff lymphs (absolute) 3.6 x10e3 /uL 0.7-3. 1 above high normal Not Available [facility] ([facility]) [address] [place], [address], 12/29/2017 09:24:18 12/29/19 18 12/29/2017 CBC w/ auto diff monocytes(ab solute) 0.7 x10e3 /uL 0.1-0. 9 Not Available [facility] ([facility]) [address] [place], [address], 12/29/2017 09:24:18 12/29/19 18 12/29/2017 CBC w/ auto diff eos (absolute) 0.2 x10e3 /uL 0.0-0. 4 Not Available [facility] ([facility]) [address] [place], [address], 12/29/2017 09:24:18 12/29/19 18 12/29/2017 CBC w/ auto diff baso (absolute) 0.0 x10e3 /uL 0.0-0. 2 Not Available [facility] ([facility]) [address] [place], [address], 12/29/2017 09:24:18 12/29/19 18 12/29/2017 CBC w/ auto diff immature granulocytes 0 % not estab. Not Available [facility] ([facility]) [address] [facility] [place], [address], 12/29/2017 09:24:18 12/29/19 18 12/29/2017 CBC w/ auto diff immature grans (abs) 0.0 x10e3 /uL 0.0-0. 1 Not Available [facility] ([facility]) [address] [facility] [place], [address], 12/29/2017 09:24:18 12/29/19 18 12/29/2017 CBC w/ auto diff NRBC OVERLOCK SLEEVE SETTER Not Available [facility] ([facility]) [address] [facility] [place], [address], 12/29/2017 09:24:18 12/29/19 18 12/29/2017 CBC w/ auto diff hematology comments: OVERLOCK SLEEVE SETTER Not Available [facility] ([facility]) [address] [place], [address], 12/29/2017 09:24:18 12/29/19 18 12/29/2017 BMP, serum or plasm a glucose 91 mg/dL 65-99 Not Available [facility] ([facility]) [address] [place], [address], 12/29/2017 09:24:18 12/29/19 18 12/29/2017 BMP, serum or plasm a BUN 9 mg/dL 6-20 Not Available [facility] ([facility]) [address] [place], [address], 12/29/2017 09:24:18 12/29/19 18 12/29/2017 BMP, serum or plasm a creatinine 0.96 mg/dL 0.57-1 .00 Not Available [facility] ([facility]) [address] [place], [address], 12/29/2017 09:24:18 12/29/19 18 12/29/2017 BMP, serum or plasm a eGFR if nonafricn AM 76 mL/mi n/1.7 3 >59 Not Available [facility] ([facility]) [address] [place], [address], 12/29/2017 09:24:18 12/29/19 18 12/29/2017 BMP, serum or plasm a eGFR if africn AM 87 mL/mi n/1.7 3 >59 Not Available [facility] ([facility]) [address] [place], [address], 12/29/2017 09:24:18 12/29/19 18 12/29/2017 BMP, serum or plasm a BUN/creatini ne ratio 9 9-23 Not Available [facility] ([facility]) [address] [facility] [place], [address], 12/29/2017 09:24:18 12/29/19 18 12/29/2017 BMP, serum or plasm a sodium 142 mmol/ L 134-14 4 Not Available [facility] ([facility]) [address] [facility] [place], [address], 12/29/2017 09:24:18 12/29/19 18 12/29/2017 BMP, serum or plasm a potassium 4.2 mmol/ L 3.5-5. 2 Not Available [facility] ([facility]) [address] [facility] [place], [address], 12/29/2017 09:24:18 12/29/19 18 12/29/2017 BMP, serum or plasm a chloride 101 mmol/ L 96-106 Not Available [facility] ([place] [facility]) [address] [facility] [place], [address], 12/29/2017 09:24:18 12/29/19 18 12/29/2017 BMP, serum or plasm a carbon dioxide, total 26 mmol/ L 18-29 Not Available [facility] ([place] [facility]) [address] [facility] [place], [address], 12/29/2017 09:24:18 12/29/19 18 12/29/2017 BMP, serum or plasm a calcium 9.5 mg/dL 8.7-10 .2 Not Available [facility] ([facility]) [address] [facility] [place], [address], 12/29/2017 09:24:18 12/29/19 18 12/29/2017 lipid panel , serum cholesterol, total 154 mg/dL 100-19 9 Not Available [facility] ([facility]) [address] [facility], [place], [address], 12/29/2017 09:24:19 12/29/19 18 12/29/2017 lipid panel , serum triglyceride s 134 mg/dL 0-149 Not Available [facility] ([facility]) [address] [facility], [place], [address], 12/29/2017 09:24:19 12/29/19 18 12/29/2017 lipid panel , serum HDL cholesterol 61 mg/dL >39 Not Available [facility] ([facility]) [address] [facility], [place], [address], 12/29/2017 09:24:19 12/29/19 18 12/29/2017 lipid panel , serum VLDL cholesterol nori 27 mg/dL 5-40 Not Available [facility] ([facility]) [address] [facility], [place], [address], 12/29/2017 09:24:19 12/29/19 18 12/29/2017 lipid panel , serum LDL cholesterol calc 66 mg/dL 0-99 Not Available [facility] ([facility]) [address] [facility] [place], [address], 12/29/2017 09:24:19 12/29/19 18 12/29/2017 lipid panel , serum comment: OVERLOCK SLEEVE SETTER Not Available [facility] ([facility]) [address] [facility], [place], [address], 12/29/2017 09:24:19 12/29/19 18 12/29/2017 HbA1c (hemo globi n A1c), blood hemoglobin A1C 5.0 % 4.8-5. 6 Pre-d iabet es: 5.7 - 6.4 Diabe jennifer: >6.4 Glyce torres contr ol for adult s with diabe jennifer: <7.0 Not Available [facility] ([facility]) [address] [facility], [place], [address], 12/29/2017 09:24:20 12/29/19 18 12/29/2017 HbA1c (hemo globi n A1c), blood estim. avg glu (EAG) 97 mg/dL Not Available [facility] ([facility]) [address] [facility], [place], [address], 12/29/2017 09:24:20 12/29/19 18 12/29/2017 cardi ovasc ular asses sment panel , serum interpretati on Note Suppl emlonny al grover t is avail able. Not Available [facility] ([facility]) [address] [facility], [place], [address], 12/29/2017 09:24:20 12/29/19 18 12/29/2017 cardi ovasc ular asses sment panel , serum pdf image . Not Available [facility] ([facility]) [address] [facility], [place], [address], 12/29/2017 09:24:20 10/08/19 21 10/08/2020 lipid panel , serum cholesterol, total 156 mg/dL <200 normal Not Available [facility] [address] [place], [address], 10/08/2020 10:36:58 10/08/19 21 10/08/2020 lipid panel , serum HDL cholesterol 44 mg/dL > or = 50 low Not Available [id number] [address] [place], [address], 10/08/2020 10:36:58 10/08/19 21 10/08/2020 lipid panel , serum triglyceride s 62 mg/dL <150 normal Not Available [facility] [address] [place], [address], 10/08/2020 10:36:58 10/08/19 21 10/08/2020 lipid panel [...] 310(1 9): 2061- 2068 (http ://ed ucati on.Bread kristianOomnitza. com/f aq/FA Q164) Not Available [id number] [address], [place], [address], 10/08/2020 10:36:58 10/08/19 21 10/08/2020 lipid panel , serum chol/HDLC ratio 3.5 (calc ) <5.0 normal Not Available [id number] [address] [place], [address], 10/08/2020 10:36:58 10/08/19 21 10/08/2020 lipid panel , serum non HDL cholesterol 112 mg/dL _(nori c) <130 normal For patie nts with diabe jennifer plus 1 major ASCVD risk facto r, treat ing to a non-H DL-C goal of <100 mg/dL (LDL- C of <70 mg/dL ) is edisoni chiquisd a saba pavon optio n. Not Available [facility] [address] [place], [address], 10/08/2020 10:36:58 10/08/19 21 10/08/2020 lipid panel , serum copy(ies) sent to: DR FEDERICO CRAMER [address] [place] [address] Not Available [facility] [address] [place], [address], 10/08/2020 10:36:58 10/08/19 21 10/08/2020 HIV 1+2 [...] matio n pleas e refer to http: //[facility] mario torrez stdia gnost ics.c om/fa q/FAQ 106 (This link is being provi ded for infor matio nal/ educa brigette l purpo ses only. ) The perfo rmanc e of this assay has not been clini brannon valid ated in patie nts less than 2 years old. Not Available [id number] [address], [place], [address], 10/08/2020 10:36:59 10/08/19 21 10/08/2020 HIV 1+2 Ab + HIV1 p24 Ag, quant itati ve immun oassa y, serum copy(ies) sent to: DR FEDERICO CRAMER [address] [place] [address] Not Available [id number] [address], [address], 10/08/2020 10:36:59 10/08/19 21 10/08/2020 CMP, serum or plasm a glucose 72 mg/dL 65-139 normal Non-f astin g refer ence inter rogers Not Available [address], [address], 10/08/2020 10:36:59 10/08/19 21 10/08/2020 CMP, serum or plasm a urea nitrogen (BUN) 9 mg/dL 7-25 normal Not Available [id number] [address], [address], 10/08/2020 10:36:59 10/08/19 21 10/08/2020 CMP, serum or plasm a creatinine 0.76 mg/dL 0.50-1 .10 normal Not Available [id number] [address], [address], 10/08/2020 10:36:59 10/08/19 21 10/08/2020 CMP, serum or plasm a eGFR non-afr. citizen of [place] 98 mL/mi n/1.7 3m2 > or = 60 normal Not Available [id number] [address] [address] [place], [address], 10/08/2020 10:36:59 10/08/19 21 10/08/2020 CMP, serum or plasm a eGFR 114 mL/mi n/1.7 3m2 > or = 60 normal Not Available [id number] [address], [address], 10/08/2020 10:36:59 10/08/19 21 10/08/2020 CMP, serum or plasm a BUN/creatini ne ratio NOT APPLIC ABLE (calc ) 6-22 Not Available [facility] - [address], [address], 10/08/2020 10:36:59 10/08/19 21 10/08/2020 CMP, serum or plasm a sodium 142 mmol/ L 135-14 6 normal Not Available [address], [address], 10/08/2020 10:36:59 10/08/19 21 10/08/2020 CMP, serum or plasm a potassium 3.7 mmol/ L 3.5-5. 3 normal Not Available [address], [address], 10/08/2020 10:36:59 10/08/19 21 10/08/2020 CMP, serum or plasm a chloride 107 mmol/ L 98-110 normal Not Available [address], [address], 10/08/2020 10:36:59 10/08/19 21 10/08/2020 CMP, serum or plasm a carbon dioxide 26 mmol/ L 20-32 normal Not Available [address], [address], 10/08/2020 10:36:59 10/08/19 21 10/08/2020 CMP, serum or plasm a calcium 8.6 mg/dL 8.6-10 .2 normal Not Available [address], [address], 10/08/2020 10:36:59 10/08/19 21 10/08/2020 CMP, serum or plasm a protein, total 6.5 g/dL 6.1-8. 1 normal Not Available [address], [address], 10/08/2020 10:36:59 10/08/19 21 10/08/2020 CMP, serum or plasm a albumin 3.8 g/dL 3.6-5. 1 normal Not Available [address] [address] [place], [address], 10/08/2020 10:36:59 10/08/1910/08/2020 CMP, serum or plasm a globulin 2.7 g/dL_ (calc ) 1.9-3. 7 normal Not Available [address], [address], 10/08/2020 10:36:59 10/08/19 21 10/08/2020 CMP, serum or plasm a albumin/glob ulin ratio 1.4 (calc ) 1.0-2. 5 normal Not Available [address], [address], 10/08/2020 10:36:59 10/08/1910/08/2020 CMP, serum or plasm a bilirubin, total 0.4 mg/dL 0.2-1. 2 normal Not Available [address], [address], 10/08/2020 10:36:59 10/08/1910/08/2020 CMP, serum or plasm a alkaline phosphatase 77 U/L 31-125 normal Not Available [facility] [employer] [address] [address] [place], [address], 10/08/2020 10:36:59 10/08/1910/08/2020 CMP, serum or plasm a AST 17 U/L 10-30 normal Not Available [address] [address] [place], [address], 10/08/2020 10:36:59 10/08/1910/08/2020 CMP, serum or plasm a ALT 17 U/L 6-29 normal Not Available [id number] [address] [address] [place], [address], 10/08/2020 10:36:59 10/08/1910/08/2020 CMP, serum or plasm a copy(ies) sent to: DR FEDERICO CRAMER [address] [place] [address] Not Available [address], [address], 10/08/2020 10:36:59 10/08/19 21 10/08/2020 urina lysis , compl ete color YELLOW yellow normal Not Available [address], [address], 10/08/2020 10:37:00 10/08/19 21 10/08/2020 urina lysis , compl ete appearance CLEAR clear normal Not Available [address], [address], 10/08/2020 10:37:00 10/08/19 21 10/08/2020 urina lysis , compl ete specific gravity 1.023 1.001- 1.035 normal Not Available [address], [address], 10/08/2020 10:37:00 10/08/19 21 10/08/2020 urina lysis , compl ete pH 6.0 5.0-8. 0 normal Not Available [address], [address], 10/08/2020 10:37:00 10/08/19 21 10/08/2020 urina lysis , compl ete glucose NEGATI VE negati ve normal Not Available [address], [address], 10/08/2020 10:37:00 10/08/19 21 10/08/2020 urina lysis , compl ete bilirubin NEGATI VE negati ve normal Not Available [facility] [address], [address], 10/08/2020 10:37:00 10/08/19 21 10/08/2020 urina lysis , compl ete ketones 3+ negati ve abnormal Not Available [address], [address], 10/08/2020 10:37:00 10/08/19 21 10/08/2020 urina lysis , compl ete occult blood TRACE negati ve abnormal Not Available [address], [address], 10/08/2020 10:37:00 10/08/19 21 10/08/2020 urina lysis , compl ete protein NEGATI VE negati ve normal Not Available [address], [address], 10/08/2020 10:37:00 10/08/19 21 10/08/2020 urina lysis , compl ete nitrite NEGATI VE negati ve normal Not Available [address], [address], 10/08/2020 10:37:00 10/08/19 21 10/08/2020 urina lysis , compl ete leukocyte esterase NEGATI VE negati ve normal Not Available [address], [address], 10/08/2020 10:37:00 10/08/19 21 10/08/2020 urina lysis , compl ete WBC NONE SEEN /hpf < or = 5 normal Not Available [address], [address], 10/08/2020 10:37:00 10/08/19 21 10/08/2020 urina lysis , compl ete RBC 0-2 /hpf < or = 2 normal Not Available [address], [address], 10/08/2020 10:37:00 10/08/19 21 10/08/2020 urina lysis , compl ete squamous epithelial cells 0-5 /hpf < or = 5 Not Available [facility] [address] [address] [place], [address], 10/08/2020 10:37:00 10/08/19 21 10/08/2020 urina lysis , compl ete bacteria NONE SEEN /hpf none seen normal Not Available [facility] [address] [address] [place], [address], 10/08/2020 10:37:00 10/08/19 21 10/08/2020 urina lysis , compl ete hyaline cast NONE SEEN /lpf none seen normal Not Available [facility] [address] [address] [place], [address], 10/08/2020 10:37:00 10/08/19 21 10/08/2020 urina lysis , compl ete copy(ies) sent to: DR FEDERICO CRAMER [address] [place] [address] Not Available [facility] [address] [address] [place], [address], 10/08/2020 10:37:00 10/08/1910/08/2020 HbA1c (hemo globi n [...] Care in Diabe jennifer(A DA). Not Available [address] [address] [place], [address], 10/08/2020 10:37:01 10/08/19 21 10/08/2020 HbA1c (hemo globi n A1c), blood copy(ies) sent to: DR FEDERICO CRAMER [address] [place] [address] Not Available [id number] [address] [address] [place], [address], 10/08/2020 10:37:01 10/08/19 21 10/08/2020 iron + TIBC + leticia tin, serum iron, total 37 mcg/d L 40-190 low Not Available [id number] [address] [address] [place], [address], 10/08/2020 14:59:44 10/08/19 21 10/08/2020 iron + TIBC + leticia tin, serum iron binding capacity 336 mcg/d L_(ca lc) 250-45 0 normal Not Available [address] [address] [place], [address], 10/08/2020 14:59:44 10/08/19 21 10/08/2020 iron + TIBC + leticia tin, serum % saturation 11 %_(ca lc) 16-45 low Not Available [id number] [address] [address] [place], [address], 10/08/2020 14:59:44 10/08/19 21 10/08/2020 iron + TIBC + leticia tin, serum ferritin 67 NG/mL 16-154 normal Not Available [id number] [address] [address] [place], [address], 10/08/2020 14:59:44 10/08/19 21 10/08/2020 iron + TIBC + leticia tin, serum copy received from: DR FEDERICO CRAMER [address] [place] [address] Not Available [address], [address], 10/08/2020 14:59:44 10/08/19 21 10/08/2020 CMP, serum or plasm a glucose 70 mg/dL 65-99 normal Fasti ng refer ence inter rogers Not Available [address], [address], 10/08/2020 14:59:45 10/08/19 21 10/08/2020 CMP, serum or plasm a urea nitrogen (BUN) 9 mg/dL 7-25 normal Not Available [address], [address], 10/08/2020 14:59:45 10/08/19 21 10/08/2020 CMP, serum or plasm a creatinine 0.76 mg/dL 0.50-1 .10 normal Not Available [address], [address], 10/08/2020 14:59:45 10/08/19 21 10/08/2020 CMP, serum or plasm a eGFR non-afr. citizen of [place] 98 mL/mi n/1.7 3m2 > or = 60 normal Not Available [address] [address] [place], [address], 10/08/2020 14:59:45 10/08/19 21 10/08/2020 CMP, serum or plasm a eGFR 114 mL/mi n/1.7 3m2 > or = 60 normal Not Available [address], [address], 10/08/2020 14:59:45 10/08/19 21 10/08/2020 CMP, serum or plasm a BUN/creatini ne ratio NOT APPLIC ABLE (calc ) 6-22 Not Available [address], [address], 10/08/2020 14:59:45 10/08/19 21 10/08/2020 CMP, serum or plasm a sodium 140 mmol/ L 135-14 6 normal Not Available [address], [address], 10/08/2020 14:59:45 10/08/19 21 10/08/2020 CMP, serum or plasm a potassium 3.7 mmol/ L 3.5-5. 3 normal Not Available [address], [address], 10/08/2020 14:59:45 10/08/19 21 10/08/2020 CMP, serum or plasm a chloride 106 mmol/ L 98-110 normal Not Available [address], [address], 10/08/2020 14:59:45 10/08/19 21 10/08/2020 CMP, serum or plasm a carbon dioxide 25 mmol/ L 20-32 normal Not Available [address], [address], 10/08/2020 14:59:45 10/08/19 21 10/08/2020 CMP, serum or plasm a calcium 8.9 mg/dL 8.6-10 .2 normal Not Available [address], [address], 10/08/2020 14:59:45 10/08/19 21 10/08/2020 CMP, serum or plasm a protein, total 6.7 g/dL 6.1-8. 1 normal Not Available [address], [address], 10/08/2020 14:59:45 10/08/19 21 10/08/2020 CMP, serum or plasm a albumin 3.9 g/dL 3.6-5. 1 normal Not Available [address] [address] [place], [address], 10/08/2020 14:59:45 10/08/1910/08/2020 CMP, serum or plasm a globulin 2.8 g/dL_ (calc ) 1.9-3. 7 normal Not Available [address] [address] [place], [address], 10/08/2020 14:59:45 10/08/1910/08/2020 CMP, serum or plasm a albumin/glob ulin ratio 1.4 (calc ) 1.0-2. 5 normal Not Available [address] [address] [place], [address], 10/08/2020 14:59:45 10/08/1910/08/2020 CMP, serum or plasm a bilirubin, total 0.4 mg/dL 0.2-1. 2 normal Not Available [address] [address] [place], [address], 10/08/2020 14:59:45 10/08/1910/08/2020 CMP, serum or plasm a alkaline phosphatase 80 U/L 31-125 normal Not Available [facility] [employer] [address] [address] [place], [address], 10/08/2020 14:59:45 10/08/1910/08/2020 CMP, serum or plasm a AST 17 U/L 10-30 normal Not Available [address] [address] [place], [address], 10/08/2020 14:59:45 10/08/1910/08/2020 CMP, serum or plasm a ALT 17 U/L 6-29 normal Not Available [id number] [address] [place], [address], 10/08/2020 14:59:45 10/08/19 21 10/08/2020 CMP, serum or plasm a copy received from: DR FEDERICO CRAMER [address] [place] [address] Not Available [address], [address], 10/08/2020 14:59:45 10/08/1910/08/2020 CBC w/ auto diff white blood cell count 9.2 thous and/u L 3.8-10 .8 normal Not Available [address], [address], 10/08/2020 14:59:45 10/08/19 21 10/08/2020 CBC w/ auto diff red blood cell count 3.84 dionna on/uL 3.80-5 .10 normal Not Available [address], [address], 10/08/2020 14:59:45 10/08/19 21 10/08/2020 CBC w/ auto diff hemoglobin 10.7 g/dL 11.7-1 5.5 low Not Available [address], [address], 10/08/2020 14:59:45 10/08/1910/08/2020 CBC w/ auto diff hematocrit 33.4 % 35.0-4 5.0 low Not Available [address], [address], 10/08/2020 14:59:45 10/08/19 21 10/08/2020 CBC w/ auto diff MCV 87.0 fL 80.0-1 00.0 normal Not Available [address], [address], 10/08/2020 14:59:45 10/08/19 21 10/08/2020 CBC w/ auto diff MCH 27.9 pg 27.0-3 3.0 normal Not Available [address], [address], 10/08/2020 14:59:45 10/08/19 21 10/08/2020 CBC w/ auto diff MCHC 32.0 g/dL 32.0-3 6.0 normal Not Available [address], [address], 10/08/2020 14:59:45 10/08/19 21 10/08/2020 CBC w/ auto diff RDW 13.8 % 11.0-1 5.0 normal Not Available [address], [address], 10/08/2020 14:59:45 10/08/19 21 10/08/2020 CBC w/ auto diff platelet count 297 thous and/u L 140-40 0 normal Not Available [address], [address], 10/08/2020 14:59:45 10/08/19 21 10/08/2020 CBC w/ auto diff MPV 10.9 fL 7.5-12 .5 normal Not Available [address], [address], 10/08/2020 14:59:45 10/08/19 21 10/08/2020 CBC w/ auto diff absolute neutrophils 5778 cells /uL 1500-7 800 normal Not Available [address], [address], 10/08/2020 14:59:45 10/08/19 21 10/08/2020 CBC w/ auto diff absolute lymphocytes 2622 cells /uL 850-39 00 normal Not Available [address], [address], 10/08/2020 14:59:45 10/08/19 21 10/08/2020 CBC w/ auto diff absolute monocytes 552 cells /uL 200-95 0 normal Not Available [address], [address], 10/08/2020 14:59:45 10/08/19 21 10/08/2020 CBC w/ auto diff absolute eosinophils 221 cells /uL 15-500 normal Not Available [address], [address], 10/08/2020 14:59:45 10/08/19 21 10/08/2020 CBC w/ auto diff absolute basophils 28 cells /uL 0-200 normal Not Available [address], [address], 10/08/2020 14:59:45 10/08/19 21 10/08/2020 CBC w/ auto diff neutrophils 62.8 % normal Not Available [address], [address], 10/08/2020 14:59:45 10/08/19 21 10/08/2020 CBC w/ auto diff lymphocytes 28.5 % normal Not Available [address], [address], 10/08/2020 14:59:45 10/08/19 21 10/08/2020 CBC w/ auto diff monocytes 6.0 % normal Not Available [address], [address], 10/08/2020 14:59:45 10/08/19 21 10/08/2020 CBC w/ auto diff eosinophils 2.4 % normal Not Available [address], [address], 10/08/2020 14:59:45 10/08/19 21 10/08/2020 CBC w/ auto diff basophils 0.3 % normal Not Available [address], [address], 10/08/2020 14:59:45 10/08/19 21 10/08/2020 CBC w/ auto diff copy received from: DR FEDERICO CRAMER [address] [place] [address] [address] [place] [address] Not Available [address], [address], 10/08/2020 14:59:45 10/08/19 21 10/08/2020 thyro id perox idase (tpo) Ab, serum thyroid peroxidase antibodies 6 IU/mL <9 normal Not Available [address], [address], 10/08/2020 14:59:46 10/08/19 21 10/08/2020 thyro id perox idase (tpo) Ab, serum copy received from: DR FEDERICO CRAMER [address] [place] [address] [address] [place] [address] Not Available [address], [address], 10/08/2020 14:59:46 10/08/19 21 10/08/2020 T4, free, serum T4, free 1.5 NG/dL 0.8-1. 8 normal Not Available [address] [address] [place], [address], 10/08/2020 14:59:47 10/08/19 21 10/08/2020 T4, free, serum copy received from: DR FEDERICO CRAMER [address] [place] [address] [address] [place] [address] Not Available [address], [address], 10/08/2020 14:59:47 10/08/19 21 10/08/2020 TSH, serum or plasm a TSH 0.01 mIU/L low Refer ence Range > or = 20 Years 0.40- 4.50 Pregn kwabena Range s First trime ster 0.26- 2.66 Secon d trime ster 0.55- 2.73 Third trime ster 0.43- 2.91 Not Available [address] [address] [place], [address], 10/08/2020 14:59:47 10/08/19 21 10/08/2020 TSH, serum or plasm a copy received from: DR FEDERICO CRAMER [address] [place] [address] Not Available [facility] [address] [address] [place], [address], 10/08/2020 14:59:47 10/08/1910/08/2020 vitam in B12 + folat e, serum or blood vitamin B12 1200 pg/mL 200-11 00 high Not Available [address] [address] [place], [address], 10/08/2020 14:59:48 10/08/1910/08/2020 vitam in B12 + folat e, serum or blood folate, serum 7.4 NG/mL normal Refer ence Range Low: <3.4 Borde rline : 3.4-5 .4 Amy l: >5.4 Not Available [address] [address] [place], [address], 10/08/2020 14:59:48 10/08/1910/08/2020 vitam in B12 + folat e, serum or blood copy received from: DR FEDERICO CRAMER [address] [place] [address] Not Available [id number] [address] [place], [address], 10/08/2020 14:59:48 10/08/1910/08/2020 T3, free, serum or plasm a T3, free 2.9 pg/mL 2.3-4. 2 normal Not Available [id number] [address] [place], [address], 10/08/2020 14:59:48 10/08/19 21 10/08/2020 T3, free, serum or plasm a copy received from: DR FEDERICO CRAMER [address] [place] [address] Not Available [facility] [address] [address] , [place], [address], 10/08/2020 14:59:48 10/04/19 21 08/13/2020 CT, abdom en + pelvi s, w/ contr ast No observ ation record ed. [facility] - Op [address], [place], [address], 11/18/2020 13:04:07 10/18/19 21 10/17/2020 biops y, breas t, w/ ultra sound sammi nce (PROC ) No observ ation record ed. [facility] (Imaging) [address], [place], [address], 11/18/2020 13:04:07 10/19/19 21 10/18/2020 US, axill a No observ ation record ed. [facility], [place], [address], 11/18/2020 13:04:06 10/19/19 21 10/18/2020 US, unlis deyanira No observ ation record ed. [facility] [address] [facility], [place], [address], 11/18/2020 13:04:06 10/19/19 21 10/18/2020 US, unlis deyanira No observ ation record ed. [facility] [address] [facility], [place], [address], 11/18/2020 13:04:05 10/19/19 21 10/18/2020 US, axill a No observ ation record ed. [facility] [address] [facility], [place], [address], 11/18/2020 13:04:06 10/19/19 21 10/18/2020 US, unlis deyanira No observ ation record ed. [facility] [address] [facility], [place], [address], 11/18/2020 13:04:06 10/19/19 21 10/18/2020 US, axill a No observ ation record ed. [facility] [address] [facility], [place], [address], 11/18/2020 13:04:06 10/25/19 21 10/17/2020 US, patito t No observ ation record ed. [address], [place], [address], 11/18/2020 13:04:06 11/02/19 21 10/17/2020 US, patito forrester No observ ation record ed. [address], [place], [address], 11/18/2020 13:04:06 Result Notes None recorded. Problems Name Problem SNOMED Code Status Onset Date Resolution Date Notes Provider Name and Address Organization Details Recorded Time Mass of axilla 982204286 Active 2020 Chas Hoyos MD Attn: Demetrius g,[address] [facility], [place], [address], [place] 15:20:41 History of cholecystectom y 085820537 Active 2020 Chas Hoyos MD Attn: Demetrius g,[address] [facility], [place], [address], [place] 15:56:24 Body mass index 30+ - obesity 940463167 Active 2020 JYOTI ALAN NP [address], [place], [address], [facility] - [facility] 16:54:59 Hypothyroidism 40922983 Active 2020 JYOTI ALAN NP [address], [place], [address], [facility] - [facility] 16:55:08 Mixed anxiety and depressive disorder 192886194 Active 2020 JYOTI ALAN NP [address], [place], [address], [facility] - [facility] 16:55:23 Body mass index 40+ - severely obese 751807901 Active 2020 JYOTI ALAN NP [address], [place], [address], [facility] - SI 11:45:50 Problem Notes None recorded. Procedures Surgical History Date Name Laterality Status Provider Name and Address Organization Details Recorded Time 08/28/19 Cholecystectomy completed Radha Wasserman MA [place] - [place] 10/04/2020 14:39:55 Imaging Results Imaging Date Name Status LastModified by Organiz ation Details LastModified Time 08/13/2020 CT, abdomen + pelvis, w/ contrast completed [facility] [address] [facility] [place], [place], [address], 11/18/2020 13:04:07 10/17/2020 biopsy, breast, w/ ultrasound guidance (PROC) completed [facility] (Imaging) [address], [place], [address], 11/18/2020 13:04:07 10/18/2020 US, axilla completed [facility] [address] [facility] [address], [place], [address], 11/18/2020 13:04:06 10/18/2020 US, unlisted completed [address], [address], 11/18/2020 13:04:06 10/18/2020 US, unlisted completed [address], [address], 11/18/2020 13:04:05 10/18/2020 US, axilla completed [facility] [place], [address], 11/18/2020 13:04:06 10/18/2020 US, unlisted completed [address], [place], [address], 11/18/2020 13:04:06 10/18/2020 US, axilla completed [facility], [place], [address], 11/18/2020 13:04:06 10/17/2020 US, breast completed [address] [place] [address], [address], 11/18/2020 13:04:06 10/17/2020 US, breast completed [address], [place], [address], 11/18/2020 13:04:06 Procedure Notes None recorded. Medical [...] Updated DateTime 8 162.56 cm 52.6 kg/m2 341243. 67 g 98.9 [degF] 89 /min 99 % 99 % 110 mm[Hg] 82 mm[Hg] Albina Gonzalez [facility] 8 11:18:22 Date Recorded Body height Body mass index (BMI) Body weight Heart rate Oxygen saturation Oxygen saturation in Arterial blood by Pulse oximetry Body temperature Respiratory rate Systolic blood pressure Diastolic blood pressure Provider Name and Address Organization Details Last Updated DateTime 8 162.56 cm 52.6 kg/m2 702103. 07 g 78 /min 99 % 99 % 99 [degF] 16 /min 130 mm[Hg] 90 mm[Hg] Emil Alfaro CMA [facility] 8 14:35:38 Date Recorded Body height Body mass index (BMI) Body weight Heart rate Oxygen saturation Oxygen saturation in Arterial blood by Pulse oximetry Respiratory rate Body temperature Systolic blood pressure Diastolic blood pressure Provider Name and Address Organization Details Last Updated DateTime 1 162.56 cm 49.8 kg/m2 926925. 79 g 84 /min 98 % 98 % 16 /min 98 [degF] 130 mm[Hg] 84 mm[Hg] Radha Wasserman MA [facility] 1 14:50:42 Date Recorded Body height Provider Name an d Address Organization Details Last Updated DateTime 11/18/2020 162.56 cm Radha Wasserman MA [facility] SI 021 12:32:19 Social History Question Answer [...] Response Coronary Artery Disease N Other N Atrial Fibrillation N High Blood Pressure N Depression Y COPD N Blood Clots N Anxiety Disorder Y Muscle, Joint, or Bone Problems N Acid Reflux (GERD) N Cancer N Stroke N High Cholesterol N Liver Disease N Headaches N Thyroid Problems Y Kidney or Bladder Problems N GI Problems N Skin Problems N Anemia N Heart Attack ([place]) N Diabetes N Seizures/Epilepsy N Asthma N Allergies N Hepatitis N Osteoporosis N Heart Failure N Gynecological History Statement/Question Response Current Control Method None Date of LMP 10/01/2020 Obstetrics History GPAL:G 0 P 0 0 0 0 Past Encounters Encounter ID Performer Location Encounter Start Date Encounter Closed Date Diagnosis/Indication Diagnosis SNOMED-CT Code Diagnosis ICD10 Code Diagnosis Note [id number] Aleja Landis MD [facility] [address] [address] 12/28/2017 14:55:09 12/31/2017 09:57:01 Vertigo 317089728 R42 Likely BPVIn ED, orthostati cs and urine test negativePa tient reports hx of anemia, check CBCOn meclizine 25 mg PO (takes 3 tablets daily prn Hypothyroidism 50748539 E03.9 On synthroid 75 mcg PO dailycheck tsh/free t4 Adult heal th examination 249438111 Z00.00 Check bmp, lipid, a1c ---BMI 52Patient is consciousl y aware of her weight and is going to the gym 3-5 days /week Chronic anxiety 69391528 9 F41.9 On wellbutrin ER 150 mg PO daily and takes seroquel 25 mg (1-2 tablets daily)Summer ent states she takes wellbutrin for her anxiety and seroquel to help her sleep at night. History of endometriosis 3067624048 4937781 Z87.42 Takes naproxen prnSees Shelby rosa [id number] Guzman Delgado MD [address] [address] [address] [facility] [address] [place] [address] 01/25/2018 11:12:21 01/26/2018 10:53:24 Swelling of hand 729646576 R22.30 - Recommend voltaren gel QID prn- D/w patient that cause is unknown, and this could be arthritic related, although she is young, however, she has known arthritis in her lower back- Advised to modify work routines if hand swelling does not improve Loss of hair 196441353 L 65.9 Advised to take biotin tabletsTSH /Free T4 (12/28/17) - wnl Morbid obesity 182397484 E66.01 BMI 52.6Gained 3 lbs in past month.Advi sed to exercise (mod intensity) 5 days wk for 30 minutesAdv ised to avoid sugary drinksAvoi d foods that are high in carbohydra tesDiscuss ed in length how she can obtain and maintain custodial weight loss vs. short term weight loss methodsF/u 1 month [id number] Radha Fong-MD Abby Felipe [address] [facility] [address] [place] [address] 02/28/2018 14:29:21 03/01/2018 13:12:56 Morbid obesity 442006895 E66.01 - Counselled on DASH diet, excercise and diet control to lose weight- Will refer to dietitian- Advised to take OTC multivitam in due to tiredness Hypothyroidism 72255128 E03.9 - Would like Endo to manage her hypothyroi d.- Currently on 75mcg synthroid daily. Takes on empty stomach-TS h 1.160 (12/2017) Vertigo 007702642 R42 - Foster maneuver advised- Pt given youtube reference so she may follow along [id number] MD Kel Banda (Adult Med) [address] [place] [address] 10/04/2020 14:27:55 10/04/2020 19:26:51 Adult health examination 097292183 Z00.00 Body mass index 30+ - obesity 685661778 Z68.42 Hypothyroidism 19473048 E03.9 She follows up with Dr Cramer Mammography abnormal 168 246934 R92.8 She is following up with Dr Abernathy Mass of soft tissue 4449 [address] Mass of axilla 534826279 R22.2 Groin mass 664756849 R19 .00 Influenza vaccination declined 245373999 Z28.21 Tetanus va ccination declined by patient 654833043 Z28.21 Mixed anxi ety and depressive disorder 010725221 F41.8 On Bupropion and Seroquel History of cholecystectomy 821447714 Z90.49 [id number] MD Kel Banda (Adult Med) [address] [place] [address] 11/18/2020 07:58:43 11/19/2020 07:45:16 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 Weight loss US report from GI Kidney stone 71401473 N2 0.0 Bilateral non obstructin g nephrolith [...] Chanel Member ID Guarantor Name 01/25/2018 1 [facility] (MEDICAID HMO) [id number] 0003 Lenier Tommy [id number] Lenier Tommy 02/28/2018 1 [facility]LL[facility] (MEDICAID HMO) [id number] 0003 Lenier Tommy [id number] Lenier [place] 10/04/2020 1 [facility]LLAMY [facility] (MEDICAID HMO) [id number] 0003 Lenier [place] [id number] Lenier [place] 11/18/2020 1 [facility] (MEDICAID HMO) [id number] 0003 Lenier Tommy [id number] Lenier Tommy Notes Date Note Type Note [...] Guzman Delgado MD Attn: Accounting[address] [facility], [place], [address], [facility] - [facility] 01/27/2018 16:44:33 02/28/2018 text/html 37 [...] swollen today Follows with ObGyn for routine managing broker care. No c/o headache, CP, SOB, NVCD, numbness or tingling. Radha Amato MD Attn: Accounting[address] [facility], [place], [address], [facility] - [facility] 03/01/2018 12:19:42 10/04/2020 text/html I [...] Chas Hoyos MD Attn: Accounting[address] [facility], [place], [address], [facility] - [facility] 10/04/2020 15:56:38 11/18/2020 text/html Phone visit due to the Covid 19 pandemic Except for the swelling in my left leg and the lump in the hip. It be aching Since you don't know, can you refer me to a bingo checker? Ms Sanders returns virtually, she continues to have intermittent pain in the areas of her body where she has soft tissue lesions. Chas Hoyos MD Attn: Accounting[address] [place], [address], [facility] - [facility] 11/18/2020 13:25:45 OBGyn Episode No OBEpisode recorded.
--- OUTSIDE RECORDS SUMMARY | 2024-10-30 00:48 | XMS_ITS | Referral Summary ---
Author Organization [facility] Physician Office Building [address] [place] [address] Care Team Providers Care Wind Turbine Performance Engineer Name Role Phone Unknown, Notinfile Primary Care [...] 07/26/2017 Assessment & Plan (07/26/2017 10:59 AM LEGAL ADMINISTRATIVE SECRETARY): Reviewed pt. Previous lab records - advised [...] 07/09 Assessment & Plan (07/26/2017 11:02 AM LEGAL ADMINISTRATIVE SECRETARY): Obesity is worsening. Discussed the patient's BMI. [...] food log for 2-3 weeks, and see back gray cloth washer and follow up with back gray cloth washer and exercise regimen - follow up in [...] on file Legal Sex Female 11:44 AM LEGAL ADMINISTRATIVE SECRETARY Gender Identity Not on file Sexual Orientation Not on file Last Filed Vital Signs Vital Sign Reading Time Taken Comments Blood Pressure 124/89 12/21/2017 5:24 PM CDT Pulse 82 12/21/2017 5:24 PM CDT Temperature 36.1 C (96.9 F) 12/21/2017 5:24 PM CDT Respiratory Rate 14 07/26/2017 9:43 AM LEGAL ADMINISTRATIVE SECRETARY Oxygen Saturation 100% 12/21/2017 5:24 PM CDT Inhaled Oxygen Concentration - - Weight 137.4 kg (302 lb 14.6 oz) 12/21/2017 5:24 PM CDT Height 162.6 cm (5' 4 ) 12/21/2017 5:24 PM CDT Body Mass Index 52 12/21/2017 5:24 PM CDT Plan of Treatment Not on file Insurance [facility] Care Teams Wind Turbine Performance Engineer Relationship Specialty Start Date End Date Unknown, Notinfile PCP - General 07/20/17
--- OUTSIDE RECORDS SUMMARY | 2024-10-30 00:48 | XMS_ITS | CONTINUITY OF CARE DOCUMENT ---
Author Name radha garcia Address Unknown Organization [facility] Office Address [address] [place] [address] Phone [phone] Care Team Providers Care Parts Advisor Name Role Phone Kimberly THOMPSON, Alfonzo Grant Unavailable [phone] FEDERICO CRAMER MD Unavailable [phone] FEDERICO CRAMER MD Unavailable [phone] INSURANCE PROVIDERS Payer name Policy type / Coverage type [place] [employer] party ID [employer] MEDICA[employer] Medicaid [id number]
--- OUTSIDE RECORDS SUMMARY | 2024-10-30 00:48 | XMS_ITS | Clinical Summary ---
Author Organization [facility] Physician Office Building [address] [place] [address] Care Team Providers Care Companion Caregiver Name Role Phone Unknown, Notinfile Primary Care [...] 07/26/2017 Assessment & Plan (07/26/2017 10:59 AM SUBSTITUTE BUS DRIVER): Reviewed pt. Previous lab records - advised [...] 07/09 Assessment & Plan (07/26/2017 11:02 AM SUBSTITUTE BUS DRIVER): Obesity is worsening. Discussed the patient's BMI. [...] food log for 2-3 weeks, and see biomedical engineering internship and follow up with biomedical engineering internship and exercise regimen - follow up in [...] on file Legal Sex Female 11:44 AM SUBSTITUTE BUS DRIVER Gender Identity Not on file Sexual Orientation Not on file Obstetrics History Last Filed Vital Signs Vital Sign Reading Time Taken Comments Blood Pressure 124/89 12/21/2017 5:24 PM CDT Pulse 82 12/21/2017 5:24 PM CDT Temperature 36.1 C (96.9 F) 12/21/2017 5:24 PM CDT Respiratory Rate 14 07/26/2017 9:43 AM SUBSTITUTE BUS DRIVER Oxygen Saturation 100% 12/21/2017 5:24 PM CDT Inhaled Oxygen Concentration - - Weight 137.4 kg (302 lb 14.6 oz) 12/21/2017 5:24 PM CDT Height 162.6 cm (5' 4 ) 12/21/2017 5:24 PM CDT Body Mass Index 52 12/21/2017 5:24 PM CDT Plan of Treatment Not on file Insurance [facility] Care Teams Companion Caregiver Relationship Specialty Start Date End Date Unknown, Notinfile PCP - General 07/20/17
--- OUTSIDE RECORDS SUMMARY | 2024-10-30 00:48 | XMS_ITS | Clinical Summary ---
Author Organization [facility] Address [address] [place] [id number] Care Team Providers Care Restaurant Attendant Name Role Phone None, Provider Primary Care Provider Tristan Burton MD Unavailable [phone] Allergies No known active allergies Medications butalbital-acet aminophen-caffe ine 50-325-40 MG tablet Take 1 tablet by mouth every 6 (six) hours as needed for Pain. 15 tablet 09/27/2019 Active Ascorbic Acid ([facility] VITAMIN C) 1000 MG Tab Take 2 tablets by mouth daily with supper. Active QUETIAPINE FUMARATE ER OR Take 37.5 mg by mouth daily. Active levothyroxine (SYNTHROID) 100 MCG tablet Take 100 mcg by mouth every morning. Active BUPROPION HCL ER, SR, OR Take 150 mg by mouth daily. Active meclizine 25 MG tablet Take 25 mg by mouth 3 (three) times daily as needed. Active Etonogestrel-Et hinyl Estradiol 0.12-0.015 MG/24HR RING 1 EVERY 3 WEEKS DIRECTED, REMOVE FOR 1 WEEK Active naproxen 250 MG tablet Take 500 mg by mouth as needed. Active Active Problems Problem Noted Date Diagnosed Date Essential hypertension 10/19/2019 Dizziness 10/19/2019 Family History Medical History Relation Comments Stroke Brother Relation Status Comments Brother Alive Father Alive Maternal Grandfather (Age 78) Maternal Grandmother (Age 89) Mother Alive Paternal Grandmother Alive Social History Tobacco Use Types Packs/Day Years Used Date Smoking Tobacco: Never Smokeless Tobacco: Never Alcohol Use Standard Drinks/Week Comments Yes 0 (1 standard drink = 0.6 oz pur e alcohol) wine and tequila AUDIT-C Answer Date Recorded Frequency of Alcohol Consumption Never 09/27/2019 Average Number of Drinks Not on file 020 Frequency of Binge Drinking Not on file 09/09 Comments No Sex and Gender Information Value Date Recorded Sex Assigned at Not on file Legal Sex Female 12:23 PM CDT Gender Identity Not on file Sexual Orientation Not on file Last Filed Vital Signs Vital Sign Reading Time Taken Comments Blood Pressure 128/84 10/20/2019 12:19 PM CDT Pulse 110 10/20/2019 12:19 PM CDT Temperature 36.3 C (97.4 F) 09/27/2019 3:40 PM [employer]EDICAL ENGINEERING [employer]PER[employer]OR Respiratory Rate 20 09/27/2019 8:43 PM BIOMEDICAL ENGINEERING SUPERVISOR Oxygen Saturation 99% 10/20/2019 12:19 PM CDT Inhaled Oxygen Concentration - - Weight 152 kg (335 lb) 10/20/2019 12:19 PM CDT Height 162.6 cm (5' 4 ) 10/20/2019 12:19 PM CDT Body Mass Index 57.5 10/20/2019 12:19 PM CDT Plan of Treatment Health Maintenance Due Date Last Done Comments Cervical Cancer Screening Pap Smear (Age 30 to 64) Every 3 Years 1980 Annual Physical 1983 Hepatitis C 1998 DTaP, Tdap and Td Vaccines (1 - Tdap) 1999 02/24/1985, 12/05/1982, 02/15/1981, Additional history exists Hepatitis B Vaccines (1 of 3 - 19+ 3-dose series) 1999 Cervical Cancer Screening Pap with HPV Testing (Age 30 to 64) Every 5 Years 2010 Cervical Cancer Screening with HPV 2010 Mammogram Screening 2020 COVID-19 Vaccine (2023- season) 2024 Influenza Adult (#1) 2024 HPV Vaccines Aged Out No longer eligi ble based on patient's age to complete this topic Meningococcal B Vaccine Aged Out No l onger eligible based on patient's age to complete this topic Meningococcal Vaccine Aged Out No jina rigo eligible based on patient's age to complete this topic Pneumococcal Vaccine: Pediatrics (0 to 5 Years) and At-Risk Patients (6 to 64 Years) Aged Out No longer eligible based on patient's age to complete this topic RSV Immunizations Under 20 Months Aged Out No longer eligible based on patient's age to complete this topic Insurance BELLAMY BELLAMY Care Teams Restaurant Attendant Relationship Specialty Start Date End Date None, Provider, PCP - General 10/03/[address] [facility]. [address] [id number] Consulting Physician CARDIOVASCULAR DISEASE 10/08/19
--- OUTSIDE RECORDS SUMMARY | 2024-10-30 00:48 | XMS_ITS | Clinical Summary ---
Author Organization [facility] Care Team Providers Care Clay Temperer Name Role Phone Unavailable Primary Care Provider [...]
--- NOTE | 2024-10-30 07:24 | WPDHPUPDATE1 ---
History and Physical Update Update Date/Time: 10/30/24 07:24 History and Physical has been reviewed, including an updated exam of the patient. There are NO changes in the patient's condition. Risks, benefits, and alternatives have been discussed and questions answered. Patient agrees to proceed with procedure.
--- NOTE | 2024-10-30 07:24 | PM.HPGS ---
History of Present Illness History of Present Illness Consent: Risks, benefits, and alternatives have been discussed and questions answered. Patient agrees to proceed with procedure. Chief complaint: menorrhagia with anemia Narrative: Obdulia Sanders is a 44 year old female with persistent anemia. Last hemoglobin was 9.1. Patient reports cycles are monthly lasting 6 to 7 days. She states she does use overnight pads and changes them every 3hours. Have been heavier with clotting since her last child. She does report chronic anemia on and off since her teenage years. She does report fatigue and occasional dizziness. It was recommended to proceed with D&C hysteroscopy to further evaluate. Risks of infection, bleeding, and perforation are reviewed. Possible pathology was discussed. Patient agrees to proceed. Review of Systems Review of Systems: not repeated day of surgery; patient states no changes in status PMFSH Past Medical History Medical History (Updated 10/30/24 @ 07:30 by Mary Cruz MD) Hypothyroid Elective X2 (normal spontaneous vaginal delivery) shoulder dystocia 8lb 13 Interstitial cystitis Vitamin B 12 deficiency Depression Surgical History Surgical History (Updated 10/30/24 @ 07:29 by Mary Cruz MD) History of section, low transverse bradycardia 7lb 10oz-2007 Repeat 2021 Hx laparoscopic cholecystectomy 08/12/20 Family History Family History Sibling Cerebrovascular accident Social History Social History Years smoked: 2 Smoking status: Former smoker Tobacco type: cigarettes Alcohol use details: special occasions Substance use: never Substance use type: does not use Living arrangements: with family Occupation/Education: unemployed Spiritual care concerns: No Meds Home Medications and Allergies Home Medications ?Medication ?Instructions ?Recorded ?Confirmed ?Type multivitamin (Daily Multi-Vitamin 1 tablet PO DAILY 10/16/24 10/16/24 History tablet) Allergies Allergy/AdvReac Type Severity Reaction Status Date / Time No Known Allergies Allergy Verified 10/16/24 14:26 Exam Const: General: healthy appearing, alert and obese (BMI 50) Orientation/consciousness: patient oriented x3 Resp: Effort & Inspection: normal respiratory effort GI: GI Palp: Yes Soft to palpation, No Tenderness to palpation present (GI) and No Palpable mass present : External Female Exam: normal external appearance Speculum Exam - Vagina: normal appearance of the vagina and normal vaginal discharge Speculum Exam - Cervix: normal appearance of the cervix Bimanual exam- vagina & uterus: uterine size normal and consistency normal Bimanual Exam- Adnexa, other: normal adnexae and No adnexal tenderness Neuro: General: patient oriented x3 Assessment and Plan Assessment and plan (1) Menorrhagia: Code(s): N92.0 - Excessive and frequent menstruation with regular cycle Status: Acute Assessment and Plan: Plan to proceed with D&C hysteroscopy (2) Anemia: Code(s): D64.9 - Anemia, unspecified Status: Acute
[2024-10-30] MEDS: LACTATED RINGERS 1,000 ML 30 ML IV CONT ×2 (08:00→10:13)
[2024-10-30] MEDS: ACETAMINOPHEN 500 MG TABLET 1000 MG PO (08:22)
[2024-10-30 08:25] VITALS: BP 150/87; PULSE 76; RESP 16; TEMP 37.1; O2SAT 100
[2024-10-30 08:30] LABS: BEDSIDEPREGUCG Negative (Negative)
--- NOTE | 2024-10-30 09:28 | WPDANESEPPF ---
Anes - Initial Pre Proc Eval Procedure: Operation Date: 10/30/24 09:30 Proposed Procedures p Hysteroscopy Dilation and Curettage - Mary Cruz MD Date/Time: 10/30/24 09:28 Surgeon: Mary Cruz MD Pre Op Diagnosis: menorrhagia with anemia Patient Data Age: 44 Gender: F Height: 1.6 m Weight: 130.6 kg Last Vital Signs Temp 98.7 F 10/30/24 08:25 Pulse 76 10/30/24 08:25 Resp 16 10/30/24 08:25 BP 150/87 H 10/30/24 08:25 Pulse Ox 100 10/30/24 08:25 O2 Del Method Room Air 10/30/24 08:25 Allergies Allergy/AdvReac Type Severity Reaction Status Date / Time No Known Allergies Allergy Verified 10/16/24 14:26 Home Medications ?Medication ?Instructions ?Recorded ?Confirmed ?Type multivitamin (Daily Multi-Vitamin 1 tablet PO DAILY 10/16/24 10/30/24 History tablet) ergocalciferol (vitamin D2) 1,250 1,250 mcg PO WEEKLY 10/30/24 10/30/24 History mcg (50,000 unit) capsule Laboratory Tests 10/30/24 08:25 POC Urine HCG, Qual Negative (Negative) Patient hx anesthesia problems: none Family hx anesthesia problems: none Results Review: All pre-operative results and documents have been reviewed as part of the pre-operative evaluation. [facility] Past Medical History Medical History Hypothyroid Elective X2 (normal spontaneous vaginal delivery) shoulder dystocia 8lb 13 Interstitial cystitis Vitamin B 12 deficiency Depression Surgical History Surgical History History of section, low transverse bradycardia 7lb 10oz-2007 Repeat 2021 Hx laparoscopic cholecystectomy 08/12/20 Family History Family History Sibling Cerebrovascular accident Social History Social History Years smoked: 2 Smoking status: Former smoker Tobacco type: cigarettes Alcohol use details: special occasions Substance use: never Substance use type: does not use Living arrangements: with family Occupation/Education: unemployed Spiritual care concerns: No Anes - Eval Final PreProcedure Day of Procedure 10/30/24 09:28 Patient weight: super morbidly obese Lungs: normal air movement Airway: Mallampati scale class II and special considerations (Gold Covering noted to L upper incisor w small portion of covering missing.) Neurological: alert and oriented Last oral intake: >/= 8 hours ASA classification: III Emergent: no Anesthetic plan: proceed Anesthesia type and monitoring: general GIVS and standard monitoring Results Review: All pre-operative results and documents have been reviewed as part of the pre-operative evaluation. Hgb 9.1. BMI 51. Informed Consent: The patient's anesthetic plan and its attendant risks and benefits were discussed with the patient/family/POA. Questions were solicited and answers provided to the satisfaction of the patient/family/POA.
[2024-10-30 10:13] VITALS: BP 151/97; PULSE 73; RESP 12; O2SAT 100
--- NOTE | 2024-10-30 10:18 | W.PM.PROC2 ---
Procedure Note - Detailed Date of Procedure 10/30/24 Pre-op Diagnosis menorrhagia with anemia Post-op Diagnosis Same Procedure Performed D&C hysteroscopy Surgeon Mary Cruz MD Anesthesia MAC Findings Uterus is 10cm and appears grossly secretory Description of Procedure The patient is taken to the operating room and placed under anesthesia in the dorsal lithotomy position. She was prepped and draped in usual sterile fashion. [place] speculum was placed in the vagina and the cervix grasped on the anterior lip with a tenaculum. The uterus is sounded to 10cm. The diagnostic hysteroscope was placed and with no abnormalities noted it is removed. The sharp curette was used to curette the endometrium until a good uterine cry was noted in all areas. All instruments were then removed. Sponge, needle, and instrument counts are correct per the OR staff. The patient was awakened from anesthesia and taken to recovery in stable condition. Estimated Blood Loss 5 Drains No Packing No Pathology Yes (Endometrial curettings) Complications No immediate complications Condition Stable Disposition PACU
[2024-10-30 10:40] VITALS: BP 142/94; PULSE 69; O2SAT 99
[2024-10-30] MEDS: oxyCODONE HCL (*CRX) 5 MG TAB IR PO (10:44)
[2024-10-30 11:05] VITALS: BP 144/93; PULSE 60
== END 2024-10-30 11:10 | disposition home or self-care (01) ==
PROVIDERS: Referring Provider Nurse Practitioner; Visit Provider Obstetrics & Gynecology Gynecology
PROC: 0U5B8ZZ Destruction of Endometrium, Via Natural or Artificial Opening Endoscopic (ICD-10-PCS; CPT 58563; principal; 2024-10-30 09:30)
DX: N92.0 Excessive and frequent menstruation with regular cycle (principal); D64.9 Anemia, unspecified; E03.9 Hypothyroidism, unspecified; E53.8 Deficiency of other specified B group vitamins; F32.A Depression, unspecified; N30.10 Interstitial cystitis (chronic) without hematuria; E66.01 Morbid (severe) obesity due to excess calories; Z68.43 Body mass index [BMI] 50.0-59.9, adult; Z98.890 Other specified postprocedural states; Z90.49 Acquired absence of other specified parts of digestive tract; Z87.891 Personal history of nicotine dependence; Z82.49 Family history of ischemic heart disease and other diseases of the circulatory system
CPT/HCPCS: 58558; 88305; A9270; J1885; J2003; J2250; J2405; J2704; J3010; J7120